=== PATIENT | female | born 2000 | race Caucasian/White ===

== ENCOUNTER 2019-05-31 16:40 | Emergency (ER) | payer OTHER, SELFPAY ==
[2019-05-31 16:50] VITALS: BP 134/63; PULSE 91; RESP 14; TEMP 36.7; O2SAT 98
--- NOTE | 2019-05-31 17:04 | ED.URI ---
HPI - URI/Sore Throat General Chief Complaint: Upper Respiratory Infection Stated Complaint: sore throat/headache/cough Time Seen by Provider: 05/31/19 17:04 Source: patient Mode of arrival: ambulatory Limitations: no limitations History of Present Illness HPI Narrative: Mercy Avina is a 18 yo female with no PMH who comes with sore throat that started 24 hours ago; states it hurts to swallow, has been exposed to strep Related Data Allergies Allergy/AdvReac Type Severity Reaction Status Date / Time morphine Allergy Severe Difficulty Verified 05/31/19 17:04 Breathing Penicillins Allergy Intermediate Hives Verified 05/31/19 17:04 Review of Systems Review of Systems: Narrative: CONSTITUTIONAL: Intermittent fever, chills, sweats. EYES: Denies visual changes, redness, discharge. ENT: Denies rhinorrhea, has congestion, has sore throat, no otalgia. CARDIOVASCULAR: Denies chest pain, palpitations, edema. RESPIRATORY: Denies dyspnea, wheezing, cough GASTROINTESTINAL: Denies abdominal pain, nausea, vomiting, diarrhea. GENITOURINARY: Denies dysuria, hematuria, abnormal discharge SKIN: Denies rash or itching. NEUROLOGIC: Denies numbness, or focal weakness. PSYCHIATRIC: Denies anxiety or depression. [facility] Family History Family History Other Diabetes mellitus Hypertension Social History Social History (Updated 05/31/19 @ 17:12 by Danii Santiago CNP) Smoking packs per day: 0.4 Smoking cigarettes per day: 8.0 Smoking status: Current every day smoker Alcohol intake: current Comments At time of signature, I agree with nursing past medical, surgical, social and family history. There is no relevant family history pertinent to the presenting complaint. Exam Narrative: Exam Narrative: GENERAL: This is a well-nourished, well-developed patient, in moderate distress. HEAD: normocephalic, atraumatic. EYES: Sclera clear/white. Vision is grossly intact. EARS: External ears normal, auditory canals clear and without drainage, TMs normal without perforation. Hearing grossly intact. NOSE: External nose normal with no obvious nasal discharge, nares without redness, no rhinorrhea. THROAT: Mucous membranes moist, posterior pharynx erythema, mid left pharynx tenderness NECK: Neck supple, tender with lymphadenopathy, CARDIOVASCULAR: Regular rate and rhythm without murmurs, gallops, or rubs. RESPIRATORY: Clear to auscultation. Breath sounds equal bilaterally. No wheezes, rales, or rhonchi. GASTROINTESTINAL: Abdomen soft, SKIN: warm, intact with no suspicious lesions or rash, good texture and turgor. NEURO: awake, alert, and oriented to person, place and time. There were no obvious focal neurologic abnormalities. Steady gait EXTREMITIES: Normal range of motion. No edema. N BACK: Nontender without deformity or crepitance. Course Course Emergency Course: Strep swab is positive; started on clindamycin Infection control discussed; work excuse given Vital Signs Vital signs: Vital Signs Temperature 98.1 F 05/31/19 16:50 Pulse Rate 91 05/31/19 16:50 Respiratory Rate 14 05/31/19 16:50 Blood Pressure 134/63 05/31/19 16:50 Pulse Oximetry 98 05/31/19 16:50 Temperature 98.1 F 05/31/19 16:50 Pulse Rate 91 05/31/19 16:50 Respiratory Rate 14 05/31/19 16:50 Blood Pressure 134/63 05/31/19 16:50 Pulse Oximetry 98 05/31/19 16:50 MDM - URI/Sore Throat Differential Diagnosis Differential diagnosis: Likely upper respiratory infection, sinusitis, viral infection and pharyngitis Lab Data Labs: Strep Screen Positive Group A Strep *(Reference Range: Negative)* Discharge Plan Discharge Clinical Impression: Pharyngitis Qualifiers: Pharyngitis/tonsillitis etiology: streptococcus Qualified Code(s): J02.0 - Streptococcal pharyngitis Patient Disposition: Home, Self-Care Condition: Stable Instructions:
== END 2019-05-31 17:25 | disposition home or self-care (01) ==
PROVIDERS: Emergency Provider Nurse Practitioner
DX: J02.0 Streptococcal pharyngitis (principal); F17.200 Nicotine dependence, unspecified, uncomplicated
CPT/HCPCS: 87880; 99213; G0463

== ENCOUNTER 2019-08-12 17:49 | Emergency (ER) | payer OTHER, SELFPAY ==
[2019-08-12 18:06] VITALS: BP 123/66; PULSE 81; RESP 20; TEMP 36.8; O2SAT 98
--- NOTE | 2019-08-12 18:38 | ED.FEMALEGU ---
HPI - Female Genitourinary General Chief complaint: Urogenital-Female Stated complaint: pain with urination Time Seen by Provider: 08/12/19 18:38 Source: patient Mode of arrival: ambulatory Limitations: no limitations History of Present Illness HPI Narrative: Mercy Avina is a 18 yo female who dysuria for 2-3 days states that she tried to increase water intake but has some suprpubic discomfort today and now burning.Wants referral to get checked for diabetes Related Data Allergies Allergy/AdvReac Type Severity Reaction Status Date / Time morphine Allergy Severe Difficulty Verified 08/12/19 18:33 Breathing Penicillins Allergy Intermediate Hives Verified 08/12/19 18:33 Review of Systems Review of Systems: Narrative: CONSTITUTIONAL: Denies fever, chills, sweats. EYES: Denies visual changes, redness, discharge. ENT: Denies rhinorrhea, congestion, sore throat, otalgia. CARDIOVASCULAR: Denies chest pain, palpitations, edema. RESPIRATORY: Denies dyspnea, wheezing, cough GASTROINTESTINAL: Denies abdominal pain, nausea, vomiting, diarrhea. GENITOURINARY: has dysuria, hematuria, no abnormal discharge SKIN: Denies rash or itching. NEUROLOGIC: Denies numbness, or focal weakness. PSYCHIATRIC: Denies anxiety or depression. [facility] Social History Social History (Updated 05/31/19 @ 17:12 by Danii Santiago CNP) Smoking packs per day: 0.4 Smoking cigarettes per day: 8.0 Smoking status: Current every day smoker Alcohol intake: current Gender identity (if verbalized by the patient): Female Comments At time of signature, I agree with nursing past medical, surgical, social and family history. There is no relevant family history pertinent to the presenting complaint. Exam Narrative: Exam Narrative: GENERAL: This is a well-nourished, well-developed patient, in mild distress. HEAD: normocephalic, atraumatic. EYES: Sclera clear/white. Vision is grossly intact. EARS: External ears normal, Hearing grossly intact. NOSE: External nose normal without nasal discharge, nares without redness, no rhinorrhea. THROAT: Mucous membranes moist, NECK: Neck supple, CARDIOVASCULAR: Regular rate and rhythm without murmurs, gallops, or rubs. RESPIRATORY: Clear to auscultation. Breath sounds equal bilaterally. No wheezes, rales, or rhonchi. GASTROINTESTINAL: Abdomen soft, non-tender, SKIN: warm, intact with no suspicious lesions or rash, good texture and turgor. NEURO: awake, alert, and oriented to person, place and time. There were no obvious focal neurologic abnormalities. Steady gait EXTREMITIES: Normal range of motion. BACK: Nontender without deformity Course Course Emergency Course: UA-positive for blood leukocyte esterase trace and protein started on macrobid Vital Signs Vital signs: Vital Signs Temperature 98.3 F 08/12/19 18:06 Pulse Rate 81 08/12/19 18:06 Respiratory Rate 20 08/12/19 18:06 Blood Pressure 123/66 08/12/19 18:06 Pulse Oximetry 98 08/12/19 18:06 Temperature 98.3 F 08/12/19 18:06 Pulse Rate 81 08/12/19 18:06 Respiratory Rate 20 08/12/19 18:06 Blood Pressure 123/66 08/12/19 18:06 Pulse Oximetry 98 08/12/19 18:06 MDM - Female Genitourinary Differential Diagnosis Differential diagnosis: Likely urinary tract infection, cystitis and other Lab Data Labs: Urine Glucose Negative Reference Range: Negative Urine Bilirubin Negative Reference Range: Negative Urine Ketone Negative Reference Range: Negative Urine Specific [facility] 1.030 Reference Range:1.001-1.035 Urine Blood 2+ Reference Range: Negative * * Urine pH 5.5 Reference Range: 5.0-9.0 Urine Protein 1+ Reference Range: Negative Urine Urobilinogen 0.2 Reference Range: 0.2-1.0 Uri
== END 2019-08-12 18:52 | disposition home or self-care (01) ==
PROVIDERS: Emergency Provider Nurse Practitioner
DX: N30.01 Acute cystitis with hematuria (principal); F17.210 Nicotine dependence, cigarettes, uncomplicated
CPT/HCPCS: 81003; 87086; 99213; G0463

== ENCOUNTER 2020-05-19 13:13 | Emergency (ER) | payer OTHER, SELFPAY ==
--- NOTE | 2020-05-19 13:17 | ED.UPPEXIN ---
HPI - Extremity Injury (Upper) General Chief Complaint: Extremity Injury, Upper Stated Complaint: right wrist pain Time Seen by Provider: 05/19/20 13:18 Source: patient and RN notes reviewed History of Present Illness HPI narrative: Patient is a 19-year-old female who presents the urgent care with complaints of right wrist pain. Patient denies of any injury or trauma. States is been hurting for approximately 1 month and is worse when she wakes up in the morning. Patient denies of any swelling, bruising or redness of the wrist. Denies of any recent strenuous activity or heavy lifting. Patient states she currently does not work and does not do anything causing repetitive motion to the right upper extremity. Patient has taken ibuprofen a few times for the pain but nothing consistent. No other acute complaints. No acute distress noted. Patient aware of the plan of care. Some parts of this dictation were generated by voice recognition software and may contain typographical and/or grammatical inaccuracies. Related Data Allergies Allergy/AdvReac Type Severity Reaction Status Date / Time morphine Allergy Severe Difficulty Verified 05/19/20 13:28 Breathing Penicillins Allergy Intermediate Hives Verified 05/19/20 13:28 Review of Systems Review of Systems: Narrative: CONSTITUTIONAL: Denies fever, chills, or sweats. EYES: Denies visual changes, redness, or discharge. ENT: Denies rhinorrhea, congestion, sore throat, or otalgia. CARDIOVASCULAR: Denies chest pain, palpitations, or edema. RESPIRATORY: Denies cough or dyspnea. GASTROINTESTINAL: Denies abdominal pain, nausea, vomiting, or diarrhea. GENITOURINARY: Denies dysuria or hematuria. SKIN: Denies rash or itching. MUSCULOSKELETAL: Reports of right wrist pain NEUROLOGIC: Denies headache, numbness, or weakness. All other systems reviewed are negative, except as documented in HPI. COUNT INCLUDES [facility] Family History Family History Other Diabetes mellitus Hypertension Social History Social History (Updated 05/31/19 @ 17:12 by Danii Santiago CNP) Smoking packs per day: 0.4 Smoking cigarettes per day: 8.0 Smoking status: Current every day smoker Alcohol intake: current Gender identity (if verbalized by the patient): Female Comments At the time of my signature, I reviewed and agree with the nursing past medical, surgical, social, and family history. There is no relevant family history pertinent to the patient complaint. Exam Narrative: Exam Narrative: GENERAL: This is a well-nourished, well-developed patient, in no apparent distress. HEAD: normocephalic, atraumatic. EYES: PERRL. Sclera clear/white. Vision is grossly intact. EARS: External ears normal NOSE: External nose normal with no obvious nasal discharge, nares without redness, no rhinorrhea. THROAT: Mucous membranes moist NECK: Neck supple SKIN: warm, intact with no suspicious lesions or rash, good texture and turgor. NEURO: awake, alert, and oriented to person, place and time. There were no obvious focal neurologic abnormalities. EXTREMITIES: No obvious deformity, erythema, edema or ecchymosis noted to right wrist. Range of motion within normal limits with mild to moderate pain. Positive strong right radial pulse with capillary refill less than 2 seconds. Tinel sign negative Course Vital Signs Vital signs: Vital Signs Temperature 98.0 F 05/19/20 13:18 Pulse Rate 97 05/19/20 13:18 Respiratory Rate 16 05/19/20 13:18 Blood Pressure 127/76 05/19/20 13:18 Pulse Oximetry 97 05/19/20 13:18 Temperature 98.0 F 05/19/20 13:18 Pulse Rate 97 05/19/20 13:18 Respiratory Rate 16 05/19/20 13:18 Blood Pressure 127/76 05/19/20 13:18 Pulse Oximetry 97 05/19/20 13:18 Reviewed MDM - Extremity Injury (Upper) MDM Narrative Medical decision making narrative: Explained to the patient that symptoms are likely related to tendinitis. Complete
[2020-05-19 13:18] VITALS: BP 127/76; PULSE 97; RESP 16; TEMP 36.7; O2SAT 97
== END 2020-05-19 13:35 | disposition home or self-care (01) ==
PROVIDERS: Emergency Provider Nurse Practitioner Family
DX: M77.8 Other enthesopathies, not elsewhere classified (principal); F17.210 Nicotine dependence, cigarettes, uncomplicated
CPT/HCPCS: 99213; G0463

== ENCOUNTER 2022-02-10 08:03 | Outpatient (CLI) | payer OTHER, SELFPAY ==
--- NOTE | ~2022-02-10 | US_ITS ---
US abdomen limited INDICATION: Hyperlipidemia PROCEDURE: Realtime right upper abdominal ultrasound. COMPARISON: No prior studies for comparison. FINDINGS: Examination limited. Patient body habitus. The pancreas is normal without focal mass or muniz creatic ductal dilation. Liver echotexture is diffusely increased, consistent with fatty infiltratio n. No focal hepatic masses. There is normal directional flow in the portal vein. The gallbladder is normal without stones, gallbladder wall thickening or pericholecystic fluid. Comm on bile duct measures 4 mm. No sonographic Moffett's sign. IMPRESSION: 1: Hepatic steatosis. Reviewed, dictated and finalized at location A. [facility] IMPRESSION: 1: Hepatic steatosis.
== END 2022-02-10 08:04 | disposition home or self-care (01) ==
PROVIDERS: Visit Provider Obstetrics & Gynecology
DX: E78.5 Hyperlipidemia, unspecified (principal); K76.0 Fatty (change of) liver, not elsewhere classified
CPT/HCPCS: 76705

== ENCOUNTER 2024-02-22 09:19 | Emergency (ER) | payer OTHER, SELFPAY ==
[2024-02-22 09:48] VITALS: BP 112/82; PULSE 83; RESP 15; TEMP 36.7; O2SAT 98
--- NOTE | 2024-02-22 10:55 | ED.URI ---
HPI - URI/Sore Throat General Chief Complaint: Upper Respiratory Infection Stated Complaint: Congestion/Cough/Sore Throat/Headache Time Seen by Provider: 02/22/24 10:55 Source: patient, RN notes reviewed and old records reviewed Mode of arrival: ambulatory Limitations: no limitations History of Present Illness HPI Narrative: 23 year old female who presents to [facility] care with complaints of 9 day history of sinus congestion with drainage,facial pressure, sore throat,headache,cough, and some right ear pain. Patient reports that she has been taking Mucinex, cough drops, nasal spray for her symptoms. Patient reports that cough noted for past past 4 days which is dry and hacking with no shortness of breath. Patient reports that she has not had any known fevers or chills. MD elicited complaint: cough, sore throat, nasal congestion and other (headache) Onset (ago): day(s) (9) Severity: moderate Able to tolerate fluids by mouth: Yes Treatments prior to arrival: other (Mucinex, cough drops, nasal spray, ) Related Data Allergies Allergy/AdvReac Type Severity Reaction Status Date / Time morphine Allergy Severe Difficulty Verified 02/22/24 09:48 Breathing Penicillins Allergy Intermediate Hives Verified 02/22/24 09:48 Review of Systems Review of Systems: CONSTITUTIONAL: Denies malaise, chills, sweats, or fever. EYES: Denies visual changes, redness, or discharge. ENT: Reports rhinorrhea, congestion, sinus pain, right otalgia and no sore throat. CARDIOVASCULAR: Denies chest pain, palpitations, or edema. RESPIRATORY: Reports cough.? Denies dyspnea. GASTROINTESTINAL: Denies abdominal pain, nausea, vomiting, diarrhea SKIN: Denies rash or itching. MUSCULOSKELETAL: Denies myalgia. NEUROLOGIC: Denies headache. All systems reviewed & are unremarkable except as noted in HPI and below PMFSH Past Medical History Medical History (Updated 02/24/24 @ 13:06 by Spring Clarke NP) Anxiety Surgical History Surgical History (Updated 02/24/24 @ 13:05 by Spring Clarke NP) History of facial surgery skull and facial reconstruction fro fracture nose and orbit and skull Family History Family History Other Diabetes mellitus Hypertension Social History Social History (Updated 02/24/24 @ 13:07 by Spring Clarke NP) Smoking packs per day: 0.4 Smoking cigarettes per day: 8.0 Smoking status: Former smoker Additional smoking assessment comments: nicotine free from vape 2 months reported 02/22/2024 Alcohol intake: current Gender identity (if verbalized by the patient): Female Comments At time of signature, agree with nursing past medical, surgical, social and family history. There is no relevant family history pertinent to the presenting complaint Exam Narrative: GENERAL: Well-appearing, well-nourished, and in no acute distress. HEAD: Normocephalic EYES: PERRLA, conjunctivae clear ENT: Nares clear, turbinates edematous and erythematous, clear discharge. Mucous membranes moist. TM pearly gutierrez with dull light reflex bilaterally; no tragal tenderness. Oropharynx erythematous without lesions. Tonsils not enlarged and without exudate, no drooling, no hoarseness, no trismus, uvula midline.post nasal drainage. NECK: Supple. No lymphadenopathy CHEST: Clear to auscultation, breath sounds equal. No wheezing, rhonchi, rales, or stridor. No respiratory distress, speaks in full sentences.dry cough,SAO2 98% on room air HEART: Regular rate and rhythm. No murmur heard. SKIN: Warm, dry, no rash. NEURO: Alert and oriented x3. PSYCH: Normal mood and affect Course Course Emergency Course: Patient is aware of diagnosis, understands and agrees to treatment plan.? Anticipatory guidance given.? Patient agrees to follow-up as directed and is aware of reasons to seek care at the emergency department. Portions of this record may have been created with voice recognition software Level of Care: Express Care Visit Vital Signs Vital signs: Vital Signs Temperature 36.7 C 02/22/24 09:48 Pulse Rate 83 02/22/24 09:48 Respiratory Rate 15 02/22/24 09:48 Blood Pressure 112/82 02/22/24 09:48 Pulse Oximetry 98 02/22/24 09:48 Oxygen Delivery Room Air 02/22/24 09:48 Temperature 36.7 C 02/22/24 09:48 Pulse Rate 83 02/22/24 09:48 Respiratory Rate 15 02/22/24 09:48 Blood Pressure 112/82 02/22/24 09:48 Pulse Oximetry 98 02/22/24 09:48 Oxygen Delivery Room Air 02/22/24 09:48 Reviewed MDM - URI/Sore Throat MDM Narrative Medical decision making narrative: Differential diagnosis considered: Johnston virus, strep pharyngitis, allergic rhinitis, upper respiratory tract infection, sinusitis, rhinosinusitis, nasopharyngitis. viral pharyngitis, otitis media, otitis externa, pneumonia, bronchitis, viral cough syndrome, viral syndrome, and influenza.? Exam findings show no acute concerns or changes; patient is non-toxic appearing and is in no distress.? Patient is appropriate for outpatient treatment and follow-up. Differential Diagnosis Differential diagnosis: Likely upper respiratory infection, sinusitis, viral infection and other (cough) Medical Records Attestation: I reviewed the patient's medical records. Lab Data Attestation: I reviewed the patient's lab results. Lab results narrative: COVID antigen negative, Influenza A negative, Influenza B negative Labs: Lab Results 02/22/24 Range/Units 10:58 POC Influenza A Ag Negative (Negative) POC Influenza B Ag Negative (Negative) POC SARS CoV-2 Ag Negative (Negative) Critical Care Time Critical Care Time Critical Care Time: No Discharge Plan Discharge Clinical Impression: Sinusitis Qualifiers: Sinusitis location: pansinusitis Chronicity: acute Recurrence: non-recurrent Qualified Code(s): J01.40 - Acute pansinusitis, unspecified Patient Disposition: Home, Self-Care Condition: Stable Instructions: Antibiotic Form, Sinusitis (ED) Additional Instructions: Increase fluids especially juices and water [id number] cough and cold medicine of your choice for your symptoms Zyrtec,Claritin or Ofelia daily include plain Sudafed in a.m. S decongestant Steroids as directed--take with food heat to the face 20-30 minutes 4-6 times a day for pain Salt water gargles, throat lozenges or throat sprays as desired Antibiotic as directed--finished the medication If your symptoms persist, change or worsen significantly before you can contact your personal physician then please, without delay, go to the emergency department for further evaluation. Follow-up with PCP in 7-10 days or sooner if needed Patient Language: Setswana Prescriptions: New azithromycin 500 mg tablet 500 mg PO DAILY 5 Days Qty: 5 0RF methylprednisolone [Medrol (Jamar)] 4 mg tablets,dose pack See Rx Instructions .ROUTE .COMPLEX Qty: 21 0RF Rx Instructions: orally per package directions No Action methylprednisolone [Medrol (Jamar)] 4 mg tablets,dose pack See Rx Instructions .ROUTE .COMPLEX Qty: 21 0RF Rx Instructions: orally per package directions ibuprofen 800 mg tablet 800 mg PO TID PRN (Reason: pain) Qty: 20 0RF Follow-up/Referrals: Toña,MD Kyle [Primary Care Provider] - Time of Disposition: 11:26 Quality Pedro Coma Scale Eyes: Open Verbal: Oriented and Alert Motor: Follows Commands Pedro Coma Total Score: 15
[2024-02-22 11:00] LABS: EDCOVIDSCREEN Negative (Negative); EDINFLUASCREEN Negative (Negative); EDINFLUBSCREEN Negative (Negative)
== END 2024-02-22 11:30 | disposition home or self-care (01) ==
PROVIDERS: Emergency Provider Registered Nurse; PCP Internal Medicine
DX: J01.40 Acute pansinusitis, unspecified (principal); Z20.822 Contact with and (suspected) exposure to COVID-19; Z87.891 Personal history of nicotine dependence
CPT/HCPCS: 87426; 87804; 99213; G0463

== ENCOUNTER 2024-04-08 12:49 | Outpatient (RCR) | payer OTHER, SELFPAY | END 2024-07-03 23:59 | disposition home or self-care (01) | LOC: ANHLAB 12:49 | PROVIDERS: Visit Provider Obstetrics & Gynecology | DX: O36.0130 Maternal care for anti-D [Rh] antibodies, third trimester, not applicable or unspecified (principal); Z36.89 Encounter for other specified antenatal screening | CPT/HCPCS: 36415; 84702; 85461; 86850; 86900; 86901 ==

== ENCOUNTER 2024-06-14 12:19 | Outpatient (CLI) | payer OTHER, MEDICAID, SELFPAY ==
--- OUTSIDE RECORDS SUMMARY | 2024-06-14 12:27 | XMS_ITS | Continuity of Care Document ---
Author Organization [facility] [place] Address [address] [place] [address] [place] [address] Care Team Providers Care Fund Controller Name Role Phone ROSA LEW Primary Care Provider Assessment No assessment recorded. Plan of Treatment Reminders Order Date Submit Date Provider Last Modified By Organization Details Last Modified Time Details Appointments OB PROBLEM 2024 01:45P Sommer ALEXIS MD Not available Not available Not available Lab None recorded. Referral None recorded. Procedures None recorded. Surgeries None recorded. Imaging US, obstetric , 2nd or 3rd trimester 2024 025 [email or web address] [place], [address], [place], [address], 06/13/2024 19:16:44 Medication Orders None recorded. Patient TargetsNo targets recorded. Patient InstructionsNo instructions recorded. Reason for Referral None Reported. Results Created Date Observation Date Name Description Value Unit Range Abnormal Flag Note LastModifiedBy Organization Detail LastModifiedTime 03/21/1903/21/2024 US, obste tric, 1st trime ster No observ ation record ed. [email or web address] [address], [place], [address], 03/21/2024 21:29:57 04/04/19 25 04/04/2024 US, obste tric, 1st trime ster No observ ation record ed. [email or web address] [place] [address], [place], [address], 04/04/2024 10:17:32 04/04/19 25 04/04/2024 US, obste tric, 1st trime ster No observ ation record ed. [email or web address] [address], [place], [address], 04/04/2024 23:05:27 04/18/19 25 04/18/2024 US, obste tric, nucha l trans lucen cy No observ ation record ed. [email or web address] [place] [address], [place], [address], 04/18/2024 18:38:07 04/18/19 25 04/18/2024 US, obste tric, nucha l trans lucen cy No observ ation record ed. [email or web address] [address], [place], [address], 04/18/2024 15:51:35 04/29/19 25 04/29/2024 US, obste tric, limit ed No observ ation record ed. [email or web address] [place] [address], [place], [address], 04/29/2024 18:29:00 04/29/19 25 04/29/2024 US, obste tric, limit ed No observ ation record ed. [email or web address] [address], [place], [address], 04/30/2024 15:00:43 06/14/19 25 06/13/2024 US, obste tric, 2nd or 3rd trime ster No observ ation record ed. [email or web address] [place] [address], [place], [address], 06/13/2024 12:14:41 06/14/19 25 06/13/2024 US, obste tric, 2nd or 3rd trime ster No observ ation record ed. [email or web address] [address], [place], [address], 06/13/2024 21:49:23 Result Notes None recorded. Problems Name Problem SNOMED Code Status Onset Date Resolution Date Notes Provider Name and Address Organization Details Recorded Time 17595065 Active 20[facility] 13:01:03 Steatosis of liver 358106861 Active elevated liver enz. Chano Alexis MD [address], [place], [address], [facility] 5 14:36:04 Hypothyro idism 56935561 Active [facility] 88 mcgm levothyro raymond Chano Alexis MD [address], [place], [address], [facility] 5 15:33:41 Obesity 139611482 Active BMI 50 testing at 34wks Rosi Travis [facility] 5 13:51:57 Polycysti c ovary syndrome 173848983 Active Early GDM screen Chano Alexis MD [address], [place], [address], [facility] 5 14:48:04 Cardiac arrhythmi a 517261349 Active holter monintor and cardiolog y Cardiolog y referral faxed Dr Michaels office 06/13 72 hr Holter monitor order 06/13 [facility] 5 13:51:49 Problem Notes None recorded. Procedures Surgical History Date Name Laterality Status Provider Name and Address Organization Details Recorded Time 4 Date of Last Pap Smear completed Lydia Lafleur [facility] 12/30/2023 12:13:46 7 internal fixation of bone of face with plating system completed Lydia Lafleur [facility] 07/21/2021 15:30:03 Imaging Results Imaging Date Name Status LastModified by Organiz ation Details LastModified Time 06/13/2024 US, obstetric, 2nd or 3rd trimester completed [email or web address] [place] [address], [place], [address], 06/13/2024 12:14:41 Procedure Notes None recorded. Medical Equipment None Reported. Allergies Allergen ID Allergen Name Allergen Category Reaction Reaction Severity Criticality Documentation Date Start Date Code Code System Note Provider Name and Address Organization Details Recorded Time 72070 Product containin g penicilli n (product) medicatio n hives severe Not available 09/21/2020 68528 8001 SNOMED [facility] 15:22:27 07059 morpholin e salicylat e Not available facial swelling severe Not available 09/21/2020 52214 8 RxNorm [facility] 15:33:32 45093 morphine medicatio n Not available Not available Not available 09/21/2020 7052 RxNorm [facility] 15:33:29 Medications Name Sig Start Date Stop Date Status Note LastModified by Organization Details LastModified Time metformin 500 mg tablet TAKE 1 TABLET BY MOUTH IN THE MORNING AND IN THE EVENING 12/29 completed Not Available Not Available Not Available azithromyci n 250 mg tablet 01/17 completed Not Available Not Available Not Available levothyroxi ne 25 mcg tablet TAKE 1 TABLET BY MOUTH DAILY 07/21 completed Not Available Not Available Not Available levothyroxi ne 75 mcg tablet TAKE 1 TABLET BY MOUTH DAILY 03/21 completed Not Available Not Available Not Available levothyroxi ne 100 mcg tablet TAKE 1 TABLET BY MOUTH DAILY 07/21 completed Not Available Not Available Not Available levothyroxi ne 88 mcg tablet TAKE 1 TABLET BY MOUTH DAILY active Not Available Not Available No t Available levothyroxi ne 50 mcg tablet Take 1 tablet every day by oral route. 01/17 completed Not Available Not Available Not Available ursodiol 300 mg capsule Take 1 capsule twice a day by oral route. 2024 active Not Available Not Available Not Avai lable ergocalcife rol (vitamin D2) 1,250 mcg (50,000 unit) capsule TAKE 1 CAPSULE BY MOUTH EVERY WEEK 12/29 completed Not Available Not Available Not Available methylpredn isolone 4 mg tablets in a dose pack FOLLOW PACKAGE DIRECTION S 03/21 completed Not Available Not Available Not Available metformin ER 500 mg tablet,exte nded release 24 hr TAKE 1 TABLET BY MOUTH TWICE DAILY 12/29 completed Not Available Not Available Not Available nicotine 7 mg/24 hr daily transdermal patch APPLY 1 PATCH TOPICALLY TO THE SKIN EVERY DAY DIRECTED 12/29 completed Not Available Not Available Not Available azithromyci n 500 mg tablet TAKE 1 TABLET BY MOUTH DAILY FOR 5 DAYS 03/21 completed Not Available Not Available Not Available 1.5/30 (28) 1.5 mg-30 mcg (21)/75 mg (7) tablet TAKE 1 TABLET BY MOUTH EVERY DAY 12/29 completed Not Available Not Available Not Available active Not Available Not Avai lable Not Available Victoza 2-Jamar 0.6 mg/0.1 mL (18 mg/3 mL) subcutaneou s pen injector ADMINISTE R 0.6 MG UNDER THE SKIN EVERY DAY DIRECTED 12/29 completed Not Available Not Available Not Available Vitals Date Recorded Body height Body mass index (BMI) Body weight Systolic blood pressure Diastolic blood pressure Provider Name and Address Organization Details Last Updated DateTime 06/13/2024 153.67 cm 51.1 kg/m2 458353.5 7 g 136 mm[Hg] 83 mm[Hg] Priscilla Nickerson [facility] 12:51:16 Social History Question Answer Notes LastModified by Organizat ion Details LastModified Time Tobacco Smoking Status Former Smoker Edmund carnes [facility] 07/21/2021 15:02:14 Do You Have An Advance Directive? No Information not available 09/21/2020 What Is Your Level Of Alcohol Consumption? None Information not available 09/21/2020 Are You Blind Or Do You Have Difficulty Seeing? No Information not available 09/21/2020 What Is Your Level Of Caffeine Consumption? Occasional Information not available 09/21/2020 How Much Tobacco Do You Chew? None Information not available 09/21/2020 In The 14 Days Before Symptom Onset, Have You Had Close Contact With A Laboratory-confir med COVID-19 While That Case Was Ill? No Information not available 09/21/2020 In The 14 Days Before Symptom Onset, Have You Had Close Contact With A Person Who Is Under Investigation For COVID-19 While That Person Was Ill? No Information not available 09/21/2020 Have You Been To An Area Known To Be High Risk For COVID-19? No Information not available 09/21/2020 Are You Deaf Or Do You Have Serious Difficulty Hearing? No Information not available 09/21/2020 What Type Of Diet Are You Following? REGULAR Information not available 09/21/2020 Do You Or Have You Ever Used E-cigarettes Or Vape? Current User Of Electronic Cigarettes [email or web address] Information not available 07/21/2021 What Is The Highest Grade Or Level Of School You Have Completed Or The Highest Degree You Have Received? [id number] Information not available 09/21/2020 Are There Any Guns Present In Your Home? No Information not available 09/21/2020 Do You Use Protection During Sex? No Information not available 09/21/2020 Do You Use Your Seat Belt Or Car Seat Routinely? Yes Information not available 09/21/2020 Do You Have Smoke And Carbon Monoxide Detectors In Your Home? Yes Information not available 09/21/2020 How Much Tobacco Do You Smoke? No Information not available 09/21/2020 Do You Feel Stressed (tense, Restless, Nervous, Or Anxious, Or Unable To Sleep At Night)? [id number] Information not available 09/21/2020 Do You Use Any Illicit Or Recreational Drugs? No Information not available 09/21/2020 Do You Use Sunscreen Routinely? No Information not available 09/21/2020 Have You Used IV Drugs? No Information not available 09/21/2020 Do You Or Have You Ever Used Any Other Forms Of Tobacco Or Nicotine? Yes [email or web address] Information not available 07/21/2021 Sex: Unknown Functional Status Question Answer Note LastModified by Organizat ion Details LastModified Time Do you have difficulty walking or climbing stairs? No [email or web address] Information not available 07/21/2021 Are you able to walk? YESWOREST Information not available 09/21/2020 Are you able to care for yourself? Yes [email or web address] Information not available 07/21/2021 Do you have difficulty dressing or bathing? No [email or web address] Information not available 07/21/2021 What is your exercise level? None Information not available 09/21/2020 Mental Status None recorded. Family History Relationship Description Onset Age of this Age Resolved Age Notes LastModified by Organization Details LastModified Time Maternal Grandfather Malignant tumor of colon Not available 2020 15:39:09 Maternal Uncle Malignant tumor of colon Not available 2020 15:39:09 Maternal Aunt Malignant tumor of lung Not available 2020 15:39:40 Medical History Condition Response Allergies (Food, seasonal, environmental ) Y Other N Breast Cancer N Drug/Latex Allergies/Reactions N Blood Transfusion N Dermatologic Disorders N Lung Disease N Defects or Inherited Disease N Breast Problem N Gestational Diabetes N Hematologic disorders N Anesthesia Complications N History of STI Y Deep Vein Thrombosis N Polycystic ovary syndrome Y Anxiety Disorder N Autoimmune disease N Arthritis N Infertility Y Polyps N Acid Reflux (GERD) N History of abnormal pap N Cancer N Stroke N Varicosities N Neurologic/Epilepsy Y Endometriosis N High Cholesterol N Headaches N Fibromyalgia N Kidney Disease N Heart Problems N Kidney or Bladder Problems N Thyroid Problems Y GI Problems N Eating Disorder N Anemia N Art (IVF or FET) N Psychiatric Illness N Ovarian Cancer N Diabetes N Pulmonary (TB, Asthma) N Hepatitis/Liver Disease N No Past Medical History N Eczema N Urinary Tract Infection N Abuse/Domestic Violence N Asthma N Trauma/Violence N Depression/ depression N Heart Disease N Pre-Eclampsia N Hypertension N Osteoporosis N Thrombophilias N Gynecological History Statement/Question Response Date of Last Mammogram Date of LMP 01/22/2024 On BCP's at Conception? N N Was last menstrual period normal N STIs/STDs Y HPV Vaccine N Duration of Flow (days) 2 Current Control Method Are cycles usually normal N Date of Last Colonoscopy Sexually Active? Y Menses Monthly N Date of DEXA bone scan Age of first menstrual cycle 6 Date of Last Pap Smear 12/30/2023 Sexual Problems? N LMP Definite N Obstetrics History GPAL:G 2 P 0 0 1 0 Type Value Spontaneous 1 Living 0 Total 2 Past Encounters Encounter ID Performer Location Encounter Start Date Encounter Closed Date Diagnosis/Indication Diagnosis SNOMED-CT Code Diagnosis ICD10 Code Diagnosis Note [id number] Chano Alexis MD [place] [address] [address] 05/16/2024 11:38:22 05/16/2024 12:51:46 Routine care 663368183 Z34.90 [id number] [facility] [address],[place] [address] 06/13/2024 10:39:38 06/13/2024 12:11:02 screening for malformation 270194035 Z36.3 Z3A.20 [id number] Chano Alexis MD [place] [address],[place] [address] 06/13/2024 10:40:00 06/13/2024 14:35:54 Itching of skin 685804046 L29.9 Routine an tenatal care 454586736 Z34.90 Palpitations 28472264 R0 0.2 Health Concerns Section Related Observation LastModified by Organization Detai ls LastModified Time None Recorded Concern Status LastModified by Organization Details LastModified Time None Recorded Payers Encounter Date Sequence Insurance Name Policy Number Policy Stoner Covered Member ID Stoner Member ID Guarantor Name 06/13/2024 1 [employer] [id number] Allan Avina [id number] [facility] 06/13/2024 [facility] [id number] [facility] Episode Ob Episode Information Episode Created Date Number of Fetuses Patient Bloodtype Patient rh Status Prepregnancy Weight lbs Domestic Partner Domestic Partner Phone Father Name Ceramic Maker Demonstrator Status 03/14/19 25 1 A Positive Allan OPEN Fetus Data First Name Last Name Admitted to NICU Weight (g) Sex Living Outcome Pediatric Complications Fetus ID Race Codes Race Delivery Type [id number] Problems Problem Notes Hep C antibody screen reacti ve but HCV quant not detected. Pt denies history. Pt requests repeat with 28w labs for peace of mind. JORJE, RN Problem Name Start Date End Date Resolution Snomed Code Not e Obesity 166013708 BMI 50ante haylie testing at 34wks Cardiac arrhythmia 383835412 h [facility]ter monintor and cardiologyCardiology referral faxed Dr Michaels office hr Holter monitor order 06/13 Hypothyroidism 67084163 Lyudmila teja's88 mcgm levothyroxin Steatosis of liver 398821280 e levated liver enz. Polycystic ovary syndrome 103836578 Early GDM scree n Avila Calculation Initial Avila Date Initial Exam Date Initial Exam Provider Initial Ultrasound Date Last Menstrual Period Date Ultra Sound Weeks Gestation 03/14/2024 03/21/2024 01/22/2024 8 Eighteen To Twenty Week Avila Update Ultra Sound Date Fundal Height At Umbil Quickening Date Ultra Sound Latest Weeks Gestation Final Avila Confirmed By Final Avila Confirmed Date Final Avila Date Ultra Sound Latest Days Gestation 0 [email or web address] 04/18/2024 10/29/19 25 0 Pre- Flowsheet Flowsheet Date 03/21/2024 Caldwell Score Blood Edema Fundus Height Fundus Units Glucose Ketones Leukocytes Nitrite Labor Signs Protein Cervic Dilation Cervic Effacement Cervic Station Type Weight in lbs Pre/Post Dialysis Refused BP Diastolic BP Location Tested BP Systolic BP Type Fetus Heart Rate Present Fetus Movement Comments Flowsheet Date 03/21/2024 Caldwell Score Blood Edema Fundus Height Fundus Units Glucose Ketones Leukocytes Nitrite Labor Signs Protein Cervic Dilation Cervic Effacement Cervic Station Type Weight in lbs Pre/Post Dialysis Refused 260.012923910597 BP Diastolic BP Location Tested BP Systolic BP Type 83 L arm 125 sitting Fetus Heart Rate Present A 145 Fetus Movement A No Comments this patient is a 23-year-ol d multiparous female at 12 weeks' gestation who presents for initial care. She has a history of term vaginal births. Her medical, surgical, obstetric history is unremarkable. She is vaccinated. She was given precautions recommendations for . We talked about vaccines in . Talked about care in detail. She is having genetic testing. She had a normal 12 week ultrasound. To begin routine care. Flowsheet Date 04/04/2024 Caldwell Score Blood Edema Fundus Height Fundus Units Glucose Ketones Leukocytes Nitrite Labor Signs Protein Cervic Dilation Cervic Effacement Cervic Station Type Weight in lbs Pre/Post Dialysis Refused BP Diastolic BP Location Tested BP Systolic BP Type Fetus Heart Rate Present Fetus Movement Comments Flowsheet Date 04/18/2024 Caldwell Score Blood Edema Fundus Height Fundus Units Glucose Ketones Leukocytes Nitrite Labor Signs Protein Cervic Dilation Cervic Effacement Cervic Station Type Weight in lbs Pre/Post Dialysis Refused BP Diastolic BP Location Tested BP Systolic BP Type Fetus Heart Rate Present Fetus Movement Comments Flowsheet Date 04/18/2024 Caldwell Score Blood Edema Fundus Height Fundus Units Glucose Ketones Leukocytes Nitrite Labor Signs Protein Cervic Dilation Cervic Effacement Cervic Station Type Weight in lbs Pre/Post Dialysis Refused 265.901192255968 BP Diastolic BP Location Tested BP Systolic BP Type 94 L arm 138 sitting Fetus Heart Rate Present Fetus Movement A No Comments this patient is a 23year-old primiparous female at 12 weeks' gestation who presents for initial care.s. Her medical, surgical, obstetric history is unremarkable. She is vaccinated. She was given precautions recommendations for . We talked about vaccines in . Talked about care in detail. She is having genetic testing. She had a normal 12 week ultrasound. To begin routine care. Flowsheet Date 04/29/2024 Caldwell Score Blood Edema Fundus Height Fundus Units Glucose Ketones Leukocytes Nitrite Labor Signs Protein Cervic Dilation Cervic Effacement Cervic Station Type Weight in lbs Pre/Post Dialysis Refused BP Diastolic BP Location Tested BP Systolic BP Type Fetus Heart Rate Present Fetus Movement Comments Flowsheet Date 05/16/2024 Caldwell Score Blood Edema Fundus Height Fundus Units Glucose Ketones Leukocytes Nitrite Labor Signs Protein Cervic Dilation Cervic Effacement Cervic Station Type Weight in lbs Pre/Post Dialysis Refused Weight 264.272654899743 BP Diastolic BP Location Tested BP Systolic BP Type 83 125 sitting Fetus Heart Rate Present A 145 Present Fetus Movement A No Comments no complaints, no problems, routine care, no contractions, no vaginal bleeding, no loss of fluid, no cramping Flowsheet Date 06/13/2024 Caldwell Score Blood Edema Fundus Height Fundus Units Glucose Ketones Leukocytes Nitrite Labor Signs Protein Cervic Dilation Cervic Effacement Cervic Station Type Weight in lbs Pre/Post Dialysis Refused BP Diastolic BP Location Tested BP Systolic BP Type Fetus Heart Rate Present Fetus Movement Comments Flowsheet Date 06/13/2024 Caldwell Score Blood Edema Fundus Height Fundus Units Glucose Ketones Leukocytes Nitrite Labor Signs Protein Cervic Dilation Cervic Effacement Cervic Station Type Weight in lbs Pre/Post Dialysis Refused Weight 266.171759962089 BP Diastolic BP Location Tested BP Systolic BP Type 83 L arm 136 sitting Fetus Heart Rate Present Fetus Movement A Yes Comments patient reports symptomatic palpitations, to obtain Cardiology consult and Holter monitor prior to. Pruritus of palms and plantar surfaces of the feet. To obtain bile acids and start ursodiol Menstrual History Last Menstrual Date Menses Monthly On Bcp Conception Prior Menses Frequency Hcg Plus Date Menarche Onset Age 1101/22/2024 false Delivery Information Delivery Date Delivery Type Labor Anesthesia Weeks Gestation Incision Type Labor Labor Length Hrs Delivered By Post Complications Tubal Sterilization Discharge Date Comments Discharge Information Feeding Method Contraceptive Method Maternal HG B and HCT Levels
--- OUTSIDE RECORDS SUMMARY | 2024-06-14 12:28 | XMS_ITS | Clinical Summary ---
Author Organization 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) Discharge Disposition: Discharged to home or Selfcare 03/27/2024 Travel from Last 3 Months Immunizations Immunization Administration Dates Next Due DTAP VACCINE 03/24/1999,01/25/1999,1998 DTAP VACCINE, UNSPECIFIED FORMULATION 09/09/2003 ,01/04/2000 Hepatitis A Vaccine,unspecif ied Formulation 04/14/2006,02/14/2005 Hepatitis B Vaccine 03/24/1999,1998 Hepatitis B Vaccine, Pediatric/adolescent 03/24/1999,1998,1998 Hepatitis B Vaccine,unspecif ied Formulation 1998 Hib Vaccine,unspecified Formulation 12/12,03/24/1999,01/25/1999,11/12 Hpv, Unspecified Formulation 11/02/2012,10/25/19 12 Human Papillomavirus Vaccine (HPV), quadrivalent 11/02/2012 Inactivated Polio Vaccine 09/09/2003,02/2000,01/25/1999,11/12 Influenza Vaccine 07/11/2013 MMR Vaccine 09/09/2003,10/03/2000 Meningococcal MCV4, Unspecif ied Formulation 10/03/2016,10/27/2009 Meningococcal Vaccine 10/03/2016 Pneumococcal Vaccine Peds - 7 Valent 10/03/2000, 06/23/2000 TDAP Vaccine 09/27/2022,01/02/2019,12/03/2008 Social History Tobacco Use Types Packs/Day Years Used Date Smoking Tobacco: Former Cigarettes Smokeless Tobacco: Never Tobacco Cessation:Counseling Given: Not Answered Alcohol Use Standard Drinks/Week Comments Yes 0 (1 standard drink = 0.6 oz pur e alcohol) Comments Yes Sex and Gender Information Value Date Recorded Sex Assigned at Female 11/03/2022 10:48 PM CDT Legal Sex Female 11:35 PM CDT Gender Identity Female 11/03/2022 10:48 PM CDT Sexual Orientation Not on file Last Filed Vital Signs Vital Sign Reading Time Taken Comments Blood Pressure 124/74 03/28/2024 9:17 AM CLEAN ROOM OPERATOR Pulse 126 03/28/2024 9:17 AM CLEAN ROOM OPERATOR Temperature 36.3 C (97.3 F) 03/28/2024 9:17 AM CLEAN ROOM OPERATOR Respiratory Rate 22 03/28/2024 9:17 AM CLEAN ROOM OPERATOR Oxygen Saturation 96% 03/28/2024 9:17 AM CLEAN ROOM OPERATOR Inhaled Oxygen Concentration - - Weight 118.4 kg (261 lb) 03/28/2024 9:17 AM CLEAN ROOM OPERATOR Height 152.4 cm (5') 03/08/2024 2:12 AM CLEAN ROOM OPERATOR Body Mass Index 50.97 03/08/2024 2:12 AM CLEAN ROOM OPERATOR Plan of Treatment Upcoming Encounters Date Type Department Care Team (Late st Contact Info) Description 06/26/2024 9:45 AM CDT Office Visit [facility] - Endocrinology [facility] [address] [place] [address] Karol Holder MD [address] [address] Health Maintenance Due Date Last Done Comments Hepatitis C Virus (HCV) Screening 1998 Pap Smear 09/17/2019 Influenza Immunization (#1) 2023 07/11/2013 SARS-COV-2 Immunization ( - 2023- season) 2023 DTaP/Tdap/Td Immunization (9 - Td or Tdap) 09/27/2032 09/27/2022, 01/02/2019, 12/03/2008, Additional history exists Respiratory Syncytial Virus (RSV) Immunization (Adult) (1 - 1-dose 75+ series) 2073 Hepatitis B Immunization Completed 000, 03/24/1999, 1998, Additional history exists Pneumococcal Immunization Combined Aged Out 10/03/2000, 06/23/2000 No longer eligibl e based on patient's age to complete this topic Human Papillomavirus (HPV) Immunization Completed 11/02/2012, 11/02/2012, 10/25/2011 Meningococcal Immunization (ACWY) Completed 10/03/2016, 10/03/2016, 10/27/2009 Rotavirus Immunization Aged Out No lo nger eligible based on patient's age to complete this topic Procedures Procedure Name Priority Date/Time Associated Diagnosis Comments THYROXINE (T4) FREE Routine 03/27/2024 1 :00 PM CLEAN ROOM OPERATOR Hypothyroidism due to Piper's thyroiditis THYROID STIMULATING HORMONE (TSH) Routine 03/27/2024 1:00 PM CLEAN ROOM OPERATOR Hypothyroidism due to Piper's thyroiditis from Last 3 Months Results * THYROXINE (T4) FREE (03/27/2024 1:00 PM CLEAN ROOM OPERATOR) T4 FREE 0.8 0.7 - 1.9 ng/dL 03/27/2024 2:50 PM CLEAN ROOM OPERATOR [facility] Blood Venipuncture / Unknown 03/27/2024 1:00 PM CLEAN ROOM OPERATOR 03/27/2024 1:55 PM CLEAN ROOM OPERATOR us Karol Holder MD CHEMISTRY ORDERABLES Final Resul t [facility] [address] [place] [address] * THYROID STIMULATING HORMONE (TSH) (03/27/2024 1:00 PM CLEAN ROOM OPERATOR) TSH 3.827 0.300 - 5.000 mIU/L 03/27/2024 2:50 PM CLEAN ROOM OPERATOR [facility] Blood Venipuncture / Unknown 03/27/2024 1:00 PM CLEAN ROOM OPERATOR 03/27/2024 1:55 PM CLEAN ROOM OPERATOR us Karol Holder MD CHEMISTRY ORDERABLES Final Resul t Performing Organization Address City/[facility] Co de Phone Number [facility] [address] [place] [address] from Last 3 Months Insurance MEDICAID [place] MEDICAID [facility] [employer] [facility] MEDICAID [place] [facility] GENERIC MEDICAID [facility] [employer] [employer] Care Teams Structural Steel Erector Relationship Specialty Start Date End Date Maxim Ding MD [address] [place] [address] [address] [place] [address] PCP - General Internal Medicine 11/03/22 Karol Holder MD [address] [facility] [address] [place] [address] Consulting Physician Endocrinology 08/03/21
--- OUTSIDE RECORDS SUMMARY | 2024-06-14 12:28 | XMS_ITS | Data Portability ---
[facility] [address] [place] [address] Care Team Providers Care Collar Starcher Name Role Phone MAYRA LEWJOSÉ MIGUELRISHABH Primary Care Provider Assessment No assessment recorded. Plan of Treatment Reminders Order Date Submit Date Provider Last Modified By Organization Details Last Modified Time Details Appointments ANY 30 2024 01:00P M VALE HAND Not available Not available Not available Lab rapid SARS CoV 2 Ag, QL IA, respira tory specime n 2022 023 nsuthan In-Office Order, Internal Use Only DO Not Attach Compendium DO Not Attach Compendium, Do Not Delete/merge, [id number] 10/07/2022 16:20:38 CMP, serum or plasma 2022 023 [place] [facility], [address] [place] [address], [address], [place], [address], 07/25/2022 20:08:50 CBC w/ auto diff 2022 023 [facility], [address] [facility], [address], [place], [address], 07/25/2022 20:08:51 lipid panel, serum 2022 023 [place] [facility], [facility], [address], [place], [address], 07/25/2022 20:08:50 HbA1c (hemogl obin A1c), blood 2022 023 [facility], [address], [address], [place], [address], 07/26/2022 03:08:20 Referral nutriti onist/d ietitia n referra l [address], [address] [facility] , [place], [address], 07/19/2022 13:54:43 bariatr ic surgery referra l 2022 023 [facility] Clifford Gardiner MD, 4 [facility] , [address], [place], [address], 07/18/2022 12:41:19 Procedures None recorde d. Surgeries None recorde d. Imaging None recorde d. Medication Orders metform in ER 500 mg tablet, extende d release 24 hr 2023 024 [place] [id number], [address], [place], [place], [id number], 01/12/2024 09:43:16 Ozempic 0.25 mg or 0.5 mg (2 mg/1.5 mL) subcuta neous pen injecto r 2022 023 [email or web address] Not available 08/01/2022 12:04:39 Patient TargetsNo targets recorded. Patient Instructions Encounter Date Encounter Id Patient Instructions Last Modified By Organization Details Last Modified Time 04/18/2022 [id number] A healthy lifestyle: care instructions nsuthan Not available 04/18/2022 10:48:03 diet and exercis e for metabolic syndrome: care instructions nsuthan Not available 04/18/2022 10:48:03 3 month with labs nsuthan Not availabl e 04/18/2022 10:48:20 09/27/2022 [id number] A healthy lifestyle: care instructions nsuthan Not available 09/27/2022 10:05:41 tdap/f/u in 4month nsuthan Not available 09/27/2022 10:05:13 10/07/2022 [id number] keep f/u nsuthan Not available 10/07 16:20:46 04/27/2023 [id number] A healthy lifestyle: care instructions nsuthan Not available 04/27/2023 10:08:53 f/u in 4 month nsuthan Not available 0 04/27/2023 10:21:53 01/12/2024 [id number] f/u in 6month nsuthan Not available 1 03/13/2023 09:49:43 Reason for Referral 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/dietitian Refer ral for Obesity Referring Physician: Angelica Lew, Internal Medicine, Encounter Date: 04/18/2022 Bariatric Surgery Referral f or Obesity Referring Physician: Angelica Lew Internal Medicine, Encounter Date: 04/18/2022 Results Created Date Observation Date Name Description Value Unit Range Abnormal Flag Note LastModifiedBy Organization Detail LastModifiedTime 07/26/1907/25/2022 LIPID PANEL cholesterol, total 155.6 mg/dL 140.0- 200.0 Not Available [facility] [address] [place], [address], 07/25/2022 20:08:50 07/26/1907/25/2022 LIPID PANEL triglyceride s 81 mg/dL <=150 Not Available [facility] Department [address] [place], [address], 07/25/2022 20:08:50 07/26/1907/25/2022 LIPID PANEL HDL cholesterol 42.4 mg/dL 40.0-1 00.0 Not Available [facility] Department [address] [place], [address], 07/25/2022 20:08:50 07/26/19 23 07/25/2022 LIPID PANEL VLDL cholesterol fernando 16.20 mg/dL 5.00-4 0.00 Not Available [facility] Department [address] [place], [address], 07/25/2022 20:08:50 07/26/19 23 07/25/2022 LIPID PANEL LDL chol calc ([facility]) 97.7 mg/dL 0.0-99 .0 Not Available [facility] Department [address] [place], [address], 07/25/2022 20:08:50 07/26/19 23 07/25/2022 COMP. METAB OLIC PANEL (14) glucose 94 mg/dL 65-99 ANION GP 15.0 mmol/ L N OSMOL 275.0 mOsM/ L N REFER ENCE RANGE : 275.0 -301. 0 Not Available [facility] Department [address] [place] [address], [address], 07/25/2022 20:08:50 07/26/19 23 07/25/2022 COMP. METAB OLIC PANEL (14) BUN 11 mg/dL 8-26 Not Available [facility] Department [address] [place] [address], [address], 07/25/2022 20:08:50 07/26/19 23 07/25/2022 COMP. METAB OLIC PANEL (14) creatinine 0.76 mg/dL 0.50-1 .40 Not Available [facility] Department [address] [place], [address], 07/25/2022 20:08:50 07/26/19 23 07/25/2022 COMP. METAB OLIC PANEL (14) eGFR 113 mL/mi n/1.7 3 >=60 Not Available [facility] Department [address] [place], [address], 07/25/2022 20:08:50 07/26/19 23 07/25/2022 COMP. METAB OLIC PANEL (14) BUN/creatini ne ratio 14.1 Not Available [facility] Department [address] [place], [address], 07/25/2022 20:08:50 07/26/19 23 07/25/2022 COMP. METAB OLIC PANEL (14) sodium 138.0 mmol/ L 136.0- 144.0 Not Available [facility] Department [address] [place] [address], [address], 07/25/2022 20:08:50 07/26/19 23 07/25/2022 COMP. METAB OLIC PANEL (14) potassium 4.4 mmol/ L 3.5-5. 3 Not Available [facility] Department [address] [place] [address], [address], 07/25/2022 20:08:50 07/26/19 23 07/25/2022 COMP. METAB OLIC PANEL (14) chloride 102 mmol/ l 101-11 1 Not Available [facility] Department [address] [place] [address], [address], 07/25/2022 20:08:50 07/26/19 23 07/25/2022 COMP. METAB OLIC PANEL (14) carbon dioxide, total 25.2 mmol/ L 21.0-3 2.0 Not Available [facility] Department [address] [place] [address], [address], 07/25/2022 20:08:50 07/26/19 23 07/25/2022 COMP. METAB OLIC PANEL (14) calcium 9.7 mg/dL 8.2-10 .0 Not Available [facility] Department [address] [place] [address], [address], 07/25/2022 20:08:50 07/26/19 23 07/25/2022 COMP. METAB OLIC PANEL (14) protein, total 7.4 g/dL 6.7-8. 2 Not Available [facility] Department [address] [place] [address], [address], 07/25/2022 20:08:50 07/26/19 23 07/25/2022 COMP. METAB OLIC PANEL (14) albumin 4.3 g/dL 3.5-5. 5 Not Available [facility] Department [address] [place] [address], [address], 07/25/2022 20:08:50 07/26/19 23 07/25/2022 COMP. METAB OLIC PANEL (14) globulin, total 3.1 g/dL 1.5-4. 5 Not Available [facility] Department [address] [place], [address], 07/25/2022 20:08:50 07/26/19 23 07/25/2022 COMP. METAB OLIC PANEL (14) A/G ratio 1.4 Not Available [facility] Department [address] [place], [address], 07/25/2022 20:08:50 07/26/19 23 07/25/2022 COMP. METAB OLIC PANEL (14) bilirubin, total 0.6 mg/dL 0.0-1. 2 Not Available [facility] Department [address] [place], [address], 07/25/2022 20:08:50 07/26/19 23 07/25/2022 COMP. METAB OLIC PANEL (14) alkaline phosphatase 62.0 IU/L 42.0-1 21.0 Not Available [facility] Department [address] [place], [address], 07/25/2022 20:08:50 07/26/19 23 07/25/2022 COMP. METAB OLIC PANEL (14) AST (SGOT) 25.9 U/L 10.0-4 2.0 Not Available [facility] Department [address] [place], [address], 07/25/2022 20:08:50 07/26/19 23 07/25/2022 COMP. METAB OLIC PANEL (14) ALT (SGPT) 37.3 U/L 10.0-6 0.0 Not Available [facility] Department [address] [place], [address], 07/25/2022 20:08:50 07/26/19 23 07/25/2022 CBC WITH DIFFE RENTI AL/PL ATELE T WBC 6.5 K/uL 3.4-10 .8 Not Available [facility] Department [address] [place], [address], 07/25/2022 20:08:51 07/26/19 23 07/25/2022 CBC WITH DIFFE RENTI AL/PL ATELE T RBC 4.5 M/uL 4.2-5. 4 Not Available [facility] Department [address] [place], [address], 07/25/2022 20:08:51 07/26/19 23 07/25/2022 CBC WITH DIFFE RENTI AL/PL ATELE T hemoglobin 14.2 g/dL 11.5-1 5.5 Not Available [facility] Department [address] [place], [address], 07/25/2022 20:08:51 07/26/19 23 07/25/2022 CBC WITH DIFFE RENTI AL/PL ATELE T hematocrit 43.2 % 36.0-4 8.0 Not Available [facility] Department [address] [place], [address], 07/25/2022 20:08:51 07/26/19 23 07/25/2022 CBC WITH DIFFE RENTI AL/PL ATELE T MCV 97 fL 80-95 above high normal Not Available [facility] Department [address] [place], [address], 07/25/2022 20:08:51 07/26/19 23 07/25/2022 CBC WITH DIFFE RENTI AL/PL ATELE T MCH 32 pg 27-32 Not Available [facility] Department [address] [place], [address], 07/25/2022 20:08:51 07/26/19 23 07/25/2022 CBC WITH DIFFE RENTI AL/PL ATELE T MCHC 33 g/dL 32-36 Not Available [facility] Department [address] [place], [address], 07/25/2022 20:08:51 07/26/19 23 07/25/2022 CBC WITH DIFFE RENTI AL/PL ATELE T RDW 12.3 % 11.5-1 4.5 Not Available [facility] Department [address] [place], [address], 07/25/2022 20:08:51 07/26/19 23 07/25/2022 CBC WITH DIFFE RENTI AL/PL ATELE T platelets 267 K/uL 155-37 9 MPV 12.8 FL 8.9-1 2.7 H Not Available [facility] Department [address] [place], [address], 07/25/2022 20:08:51 07/26/19 23 07/25/2022 CBC WITH DIFFE RENTI AL/PL ATELE T neutrophils 50.2 % 40.0-7 4.0 Not Available [facility] Department [address] [place], [address], 07/25/2022 20:08:51 07/26/19 23 07/25/2022 CBC WITH DIFFE RENTI AL/PL ATELE T lymphs 31.4 % 14.0-4 6.0 Not Available [facility] Department [address] [place], [address], 07/25/2022 20:08:51 07/26/19 23 07/25/2022 CBC WITH DIFFE RENTI AL/PL ATELE T monocytes 11.7 % 4.0-12 .0 Not Available [facility] Department [address] [place], [address], 07/25/2022 20:08:51 07/26/19 23 07/25/2022 CBC WITH DIFFE RENTI AL/PL ATELE T eos 5 % 0-5 Not Available [facility] Department [address] [place], [address], 07/25/2022 20:08:51 07/26/19 23 07/25/2022 CBC WITH DIFFE RENTI AL/PL ATELE T basos 1.1 % 0.0-1. 0 above high normal Not Available [facility] Department [address] [place], [address], 07/25/2022 20:08:51 07/26/19 23 07/25/2022 CBC WITH DIFFE RENTI AL/PL ATELE T neutrophils (absolute) 3.3 K/uL 1.4-7. 0 Not Available [facility] Department [address] [place], [address], 07/25/2022 20:08:51 07/26/19 23 07/25/2022 CBC WITH DIFFE RENTI AL/PL ATELE T lymphs (absolute) 2.0 K/uL 0.7-3. 1 Not Available [facility] Department [address] [place], [address], 07/25/2022 20:08:51 07/26/19 23 07/25/2022 CBC WITH DIFFE RENTI AL/PL ATELE T monocytes(ab solute) 0.8 K/uL 0.1-0. 9 Not Available [facility] Department [address] [place], [address], 07/25/2022 20:08:51 07/26/19 23 07/25/2022 CBC WITH DIFFE RENTI AL/PL ATELE T eos (absolute) 0.3 K/uL 0.0-0. 4 Not Available [facility] Department [address] [place], [address], 07/25/2022 20:08:51 07/26/19 23 07/25/2022 CBC WITH DIFFE RENTI AL/PL ATELE T baso (absolute) 0.1 K/uL 0.0-0. 3 Not Available [facility] Department [address] [place], [address], 07/25/2022 20:08:51 07/26/19 23 07/25/2022 CBC WITH DIFFE RENTI AL/PL ATELE T immature granulocytes 1.1 % Not Available [facility] Department [address] [place], [address], 07/25/2022 20:08:51 07/26/19 23 07/25/2022 CBC WITH DIFFE RENTI AL/PL ATELE T immature grans (abs) 0.1 K/uL Not Available [facility] Department [address] [facility], [place], [address], 07/25/2022 20:08:51 07/26/19 23 07/25/2022 CBC WITH DIFFE RENTI AL/PL ATELE T NRBC 0 % Not Available [facility] Department [address] [place], [address], 07/25/2022 20:08:51 07/26/19 23 07/26/2022 HEMOG LOBIN A1C hemoglobin A1C 5.3 % 4.8-5. 6 Predi abete s: 5.7 - 6.4 Diabe solo: >6.4 Glyce eliu contr ol for adult s with diabe solo: <7.0 Not Available [facility] ([facility]) [address] [facility], [place], [address], 07/26/2022 03:08:20 10/08/19 23 10/07/2022 rapid SARS CoV 2 Ag, QL IA, respi rator y speci men rapid SARS CoV 2 Ag, QL IA, respiratory specimen negati ve Not Available In-Office Order Internal Use Only DO Not Attach Compendium DO Not Attach Compendium, Do Not Delete/merge, [id number] 10/07/2022 12:48:27 03/08/20 24 03/08/2024 CBC W Auto Diffe renti al panel - Blood leukocytes [#/volume] in blood by automated count 14.53 text: 4.00 - 12.00 10(3)/ mcL high WBC 14.53 (H) 4.00 - 12.00 10(3) /mcL 03/08 3:22 [facility] Not Available Not Available 05/10/2024 17:35:37 03/08/20 24 03/08/2024 CBC W Auto Diffe renti al panel - Blood erythrocytes [#/volume] in blood by automated count 4.57 text: 3.80 - 5.30 10(6)/ mcL RBC 4.57 3.80 - 5.30 10(6) /mcL 03/08 3:22 AM [facility] Not Available Not Available 05/10/2024 17:35:37 03/08/20 24 03/08/2024 CBC W Auto Diffe renti al panel - Blood hemoglobin [mass/volume ] in blood 14.8 g/dL low: 12g/dL high: 15.8g/ dL HEMOG LOBIN (HGB) 14.8 12.0 - 15.8 g/dL 03/08 3:22 AM [facility] Not Available Not Available 05/10/2024 17:35:37 03/08/20 24 03/08/2024 CBC W Auto Diffe renti al panel - Blood hematocrit [volume fraction] of blood by automated count 42.9 % low: 36%hig h: 47% HEMAT OCRIT (HCT) 42.9 36.0 - 47.0 % 03/08 3:22 AM [facility] Not Available Not Available 05/10/2024 17:35:37 03/08/20 24 03/08/2024 CBC W Auto Diffe renti al panel - Blood MCV [entitic volume] by automated count 93.9 fL low: 82fLhi gh: 96fL MCV 93.9 82.0 - 96.0 fL 03/08 3:22 AM [facility] Not Available Not Available 05/10/2024 17:35:37 03/08/20 24 03/08/2024 CBC W Auto Diffe renti al panel - Blood MCH [entitic mass] by automated count 32.4 pg low: 26pghi gh: 34pg MCH 32.4 26.0 - 34.0 pg 03/08 3:22 AM [facility] Not Available Not Available 05/10/2024 17:35:37 03/08/20 24 03/08/2024 CBC W Auto Diffe renti al panel - Blood MCHC [mass/volume ] by automated count 34.5 g/dL low: 31g/dL high: 36g/dL MCHC 34.5 31.0 - 36.0 g/dL 03/08 3:22 AM [facility] Not Available Not Available 05/10/2024 17:35:37 03/08/20 24 03/08/2024 CBC W Auto Diffe renti al panel - Blood platelets [#/volume] in blood 278 text: 140 - 440 10(3)/ mcL PLATE LET COUNT 278 140 - 440 10(3) /mcL 03/08 3:22 AM [facility] Not Available Not Available 05/10/2024 17:35:37 03/08/20 24 03/08/2024 CBC W Auto Diffe renti al panel - Blood erythrocyte distribution width [ratio] by automated count 12.1 % low: 11.8%h igh: 15.5% RDW 12.1 11.8 - 15.5 % 03/08 3:22 AM [facility] Not Available Not Available 05/10/2024 17:35:37 03/08/20 24 03/08/2024 CBC W Auto Diffe renti al panel - Blood platelet mean volume [entitic volume] in blood by automated count 11.2 fL low: 9.7fLh igh: 12.4fL MPV 11.2 9.7 - 12.4 fL 03/08 3:22 AM [facility] Not Available Not Available 05/10/2024 17:35:37 03/08/20 24 03/08/2024 CBC W Auto Diffe renti al panel - Blood neutrophils/ 100 leukocytes in blood by automated count 88.6 % low: 47%hig h: 73% high NEUTR OPHIL S 88.6 (H) 47.0 - 73.0 % 03/08 3:22 AM [facility] Not Available Not Available 05/10/2024 17:35:37 03/08/20 24 03/08/2024 CBC W Auto Diffe renti al panel - Blood lymphocytes/ 100 leukocytes in blood by automated count 4.3 % low: 18%hig h: 42% low LYMPH OCYTE S 4.3 (L) 18.0 - 42.0 % 03/08 3:22 AM [facility] Not Available Not Available 05/10/2024 17:35:37 03/08/20 24 03/08/2024 CBC W Auto Diffe renti al panel - Blood monocytes/10 0 leukocytes in blood by automated count 6.5 % low: 4%high : 12% MONOC YTES 6.5 4.0 - 12.0 % 03/08 3:22 AM [facility] Not Available Not Available 05/10/2024 17:35:37 03/08/20 24 03/08/2024 CBC W Auto Diffe renti al panel - Blood eosinophils/ 100 leukocytes in blood by automated count 0.3 % low: 0%high : 5% EOSIN OPHIL S 0.3 0.0 - 5.0 % 03/08 3:22 AM [facility] Not Available Not Available 05/10/2024 17:35:37 03/08/20 24 03/08/2024 CBC W Auto Diffe renti al panel - Blood basophils/10 0 leukocytes in blood by automated count 0.3 % low: 0%high : 1% BASOP HILS 0.3 0.0 - 1.0 % 03/08 3:22 AM [facility] Not Available Not Available 05/10/2024 17:35:37 03/08/20 24 03/08/2024 CBC W Auto Diffe renti al panel - Blood neutrophils [#/volume] in blood by automated count 12.88 text: 1.60 - 7.70 10(3)/ mcL high ABSOL [facility] NEUTR OPHIL S 12.88 (H) 1.60 - 7.70 10(3) /mcL 03/08 3:22 AM [facility] Not Available Not Available 05/10/2024 17:35:37 03/08/20 24 03/08/2024 CBC W Auto Diffe renti al panel - Blood lymphocytes [#/volume] in blood by automated count 0.63 text: 1.30 - 3.20 10(3)/ mcL low ABSOL [facility] LYMPH OCYTE S 0.63 (L) 1.30 - 3.20 10(3) /mcL 03/08 3:22 AM [facility] Not Available Not Available 05/10/2024 17:35:37 03/08/20 24 03/08/2024 CBC W Auto Diffe renti al panel - Blood monocytes [#/volume] in blood by automated count 0.94 text: 0.20 - 1.00 10(3)/ mcL ABSOL [facility] MONOC YTES 0.94 0.20 - 1.00 10(3) /mcL 03/08 3:22 AM [facility] Not Available Not Available 05/10/2024 17:35:37 03/08/20 24 03/08/2024 CBC W Auto Diffe renti al panel - Blood eosinophils [#/volume] in blood by automated count 0.04 text: 0.00 - 0.40 10(3)/ mcL ABSOL [facility] EOSIN OPHIL 0.04 0.00 - 0.40 10(3) /mcL 03/08 3:22 AM [facility] Not Available Not Available 05/10/2024 17:35:37 03/08/20 24 03/08/2024 CBC W Auto Diffe renti al panel - Blood basophils [#/volume] in blood by automated count 0.04 text: 0.00 - 0.10 10(3)/ mcL ABSOL [facility] BASOP HILS 0.04 0.00 - 0.10 10(3) /mcL 03/08 3:22 AM [facility] Not Available Not Available 05/10/2024 17:35:37 03/08/20 24 03/08/2024 CBC W Auto Diffe renti al panel - Blood nucleated erythrocytes /100 leukocytes [ratio] in blood 0 NRBC PER 100 WBC 0 03/08 3:22 AM [facility] Not Available Not Available 05/10/2024 17:35:37 03/08/20 24 03/08/2024 CBC W Auto Diffe renti al panel - Blood horticultural therapist review of results Yes RESUL TS ARE CONSI STENT WITH PERIP HERAL SMEAR REVIE W Yes 03/08 3:22 AM [facility] Not Available Not Available 05/10/2024 17:35:37 03/08/20 24 03/08/2024 CBC W Auto Diffe renti al panel - Blood interpretati on and review of laboratory results Abnorm al Not Available Not Available 17:35:37 03/08/20 24 03/08/2024 Lipas e [Enzy matic activ ity/v olume ] in Serum or Plasm a lipase [enzymatic activity/vol ume] in serum or plasma 17 U/L low: 8U/Lhi gh: 78U/L LIPAS E 17 8 - 78 U/L 03/08 3:12 AM [facility] Not Available Not Available 05/10/2024 17:35:37 03/08/20 24 03/08/2024 Lipas e [Enzy matic activ ity/v olume ] in Serum or Plasm a interpretati on and review of laboratory results Normal Not Available Not Available 04/14 17:35:37 03/08/20 24 03/08/2024 Compr ehens sofie metab olic 2000 panel - Serum or Plasm a sodium [moles/volum e] in serum or plasma 138 mmol/ L low: 136mmo l/Lhig h: 145mmo l/L SODIU M 138 136 - 145 mmol/ L 03/08 3:12 AM [facility] Not Available Not Available 05/10/2024 17:35:37 03/08/20 24 03/08/2024 Compr ehens sofie metab olic 1999 panel - Serum or Plasm a potassium [moles/volum e] in serum or plasma 3.7 mmol/ L low: 3.5mmo l/Lhig h: 5.1mmo l/L POTAS SIUM 3.7 3.5 - 5.1 mmol/ L 03/08 3:12 AM [facility] Not Available Not Available 05/10/2024 17:35:37 03/08/20 24 03/08/2024 Compr ehens sofie metab olic 2000 panel - Serum or Plasm a chloride [moles/volum e] in serum or plasma 107 mmol/ L low: 98mmol /Lhigh : 107mmo l/L CHLOR CHRISTOFER 107 98 - 107 mmol/ L 03/08 3:12 AM [facility] Not Available Not Available 05/10/2024 17:35:37 03/08/20 24 03/08/2024 Compr ehens sofie metab olic 1999 panel - Serum or Plasm a carbon dioxide, total [moles/volum e] in serum or plasma 19 mmol/ L low: 22mmol /Lhigh : 30mmol /L low CO2, VENOU S 19 (L) 22 - 30 mmol/ L 03/08 3:12 AM [facility] Not Available Not Available 05/10/2024 17:35:37 03/08/20 24 03/08/2024 Compr ehens sofie metab olic 1999 panel - Serum or Plasm a anion gap in serum or plasma 15.7 mmol/ L high: 18mmol /L ANION GAP 15.7 <18.0 mmol/ L 03/08 3:12 AM [facility] Not Available Not Available 05/10/2024 17:35:37 03/08/20 24 03/08/2024 Compr ehens sofie metab olic 2000 panel - Serum or Plasm a glucose [mass/volume ] in serum or plasma 139 mg/dL low: 70mg/d Lhigh: 99mg/d L high GLUCO SE 139 (H) 70 - 99 mg/dL 03/08 3:12 AM [facility] Not Available Not Available 05/10/2024 17:35:37 03/08/20 24 03/08/2024 Compr ehens sofie metab olic 1999 panel - Serum or Plasm a urea nitrogen [mass/volume ] in serum or plasma 12 mg/dL low: 5mg/dL high: 18mg/d L BUN 12 5 - 18 mg/dL 03/08 3:12 AM [facility] Cystinosis Research FoundationT Scrip-tE R LAB Not Available Not Available 05/10/2024 17:35:37 03/08/20 24 03/08/2024 Compr AppGyverens sofie metab olic 1999 panel - Serum or Plasm a creatinine [mass/volume ] in serum or plasma 0.93 mg/dL low: 0.6mg/ dLhigh : 1mg/dL CREAT ININE , BLOOD 0.93 0.60 - 1.00 mg/dL 03/08 3:12 AM [facility] Scrip-tE R LAB Not Available Not Available 05/10/2024 17:35:37 03/08/20 24 03/08/2024 Compr AppGyverens sofie metab olic 1999 panel - Serum or Plasm a urea nitrogen/cre atinine [mass ratio] in serum or plasma 13 text: 12 - 20 ratio BUN/C REATI NINE RATIO 13 12 - 20 ratio 03/08 3:12 AM [facility] Scrip-tE R LAB Not Available Not Available 05/10/2024 17:35:37 03/08/20 24 03/08/2024 Compr ehens sofie metab olic 1999 panel - Serum or Plasm a protein [mass/volume ] in serum or plasma 8.2 g/dL low: 6.3g/d Lhigh: 8.2g/d L TOTAL PROTE IN 8.2 6.3 - 8.2 g/dL 03/08 3:12 AM [facility] C[facility] Research [facility] Not Available Not Available 05/10/2024 17:35:37 03/08/20 24 03/08/2024 Compr ehens sofie metab olic 1999 panel - Serum or Plasm a albumin [mass/volume ] in serum or plasma 4.4 g/dL low: 3.5g/d Lhigh: 5g/dL ALBUM IN 4.4 3.5 - 5.0 g/dL 03/08 3:12 AM [facility]imet[facility] R LAB Not Available Not Available 05/10/2024 17:35:37 03/08/20 24 03/08/2024 Compr ehens sofie metab olic 1999 panel - Serum or Plasm a albumin/glob ulin [mass ratio] in serum or plasma 1.2 low: 1high: 2.2 A/G RATIO 1.2 1.0 - 2.2 03/08 3:12 AM [facility] [employer] LAB Not Available Not Available 05/10/2024 17:35:37 03/08/20 24 03/08/2024 Compr ehens sofie metab olic 2000 panel - Serum or Plasm a calcium [mass/volume ] in serum or plasma 9.4 mg/dL low: 8.7mg/ dLhigh : 10.5mg /dL CALCI UM 9.4 8.7 - 10.5 mg/dL 03/08 3:12 AM [facility] Not Available Not Available 05/10/2024 17:35:37 03/08/20 24 03/08/2024 Compr ehens sofie metab olic 1999 panel - Serum or Plasm a bilirubin.to sahil [mass/volume ] in serum or plasma 0.5 mg/dL low: 0.2mg/ dLhigh : 1.2mg/ dL T BILI 0.5 0.2 - 1.2 mg/dL 03/08 3:12 AM [facility] Space MonkeyE R LAB Not Available Not Available 05/10/2024 17:35:37 03/08/20 24 03/08/2024 Compr ehens sofie metab olic 2000 panel - Serum or Plasm a aspartate aminotransfe rase [enzymatic activity/vol ume] in serum or plasma 28 U/L low: 5U/Lhi gh: 34U/L SGOT (AST) 28 5 - 34 U/L 03/08 3:12 AM [facility] [employer] [facility] Sw[employer] Not Available Not Available 05/10/2024 17:35:37 03/08/20 24 03/08/2024 Compr ehens sofie metab olic 1999 panel - Serum or Plasm a alanine aminotransfe rase [enzymatic activity/vol ume] in serum or plasma 60 U/L low: 0U/Lhi gh: 55U/L high SGPT (ALT) 60 (H) 0 - 55 U/L 03/08 3:12 AM [facility] Cystinosis Research FoundationT Scrip-tE R LAB Not Available Not Available 05/10/2024 17:35:37 03/08/20 24 03/08/2024 Compr AppGyverens sofie metab olic 2000 panel - Serum or Plasm a alkaline phosphatase [enzymatic activity/vol ume] in serum or plasma 56 U/L low: 40U/Lh igh: 150U/L ALKAL INE PHOSP HATAS E 56 40 - 150 U/L 03/08 3:12 AM [facility] [employer] Network[employer] R LAB Not Available Not Available 05/10/2024 17:35:37 03/08/20 24 03/08/2024 Compr AppGyverens sofie metab olic 1999 panel - Serum or Plasm a glomerular filtration rate/1.73 sq M.predicted among non-blacks [volume rate/area] in serum, plasma or blood by creatinine-b ased formula (MDRD) low: 60 GFR, ESTIM ATED >60 >=60 03/08 3:12 AM [facility]osis [facility]T [facility] Not Available Not Available 05/10/2024 17:35:37 03/08/20 24 03/08/2024 Compr ehens sofie metab olic 2000 panel - Serum or Plasm a glomerular filtration rate/1.73 sq M.predicted among blacks [volume rate/area] in serum, plasma or blood by creatinine-b ased formula (MDRD) low: 60 GFR, EST. AFRIC AN >60 >=60 03/08 3:12 AM [facility] [employer]osis Research [facility]T [employer] [facility] Not Available Not Available 05/10/2024 17:35:37 03/08/20 24 03/08/2024 Compr ehens sofie metab olic 2000 panel - Serum or Plasm a glomerular filtration rate/1.73 sq M.predicted among non-blacks [volume rate/area] in serum, plasma or blood by creatinine-b ased formula (MDRD) low: 60 GFR, EST. NONAF RICAN >60 >=60 03/08 3:12 AM [facility] C[facility]osis Research [facility] Not Available Not Available 05/10/2024 17:35:37 03/08/20 24 03/08/2024 Compr ehens sofie metab olic 2000 panel - Serum or Plasm a interpretati on and review of laboratory results Abnorm al Not Available Not Available 17:35:37 03/27/19 25 03/27/2024 Thyro xine (T4) free [Mass /volu me] in Serum or Plasm a thyroxine (T4) free [mass/volume ] in serum or plasma 0.8 NG/dL low: 0.7NG/ dLhigh : 1.9NG/ dL T4 FREE 0.8 0.7 - 1.9 ng/dL 03/27 2:50 PM [facility] [employer] ConsultantsT Scrip-tE R LAB Not Available Not Available 05/10/2024 17:35:37 03/27/19 25 03/27/2024 Thyro xine (T4) free [Mass /volu me] in Serum or Plasm a interpretati on and review of laboratory results Normal Not Available Not Available 04/14 17:35:37 03/27/19 25 03/27/2024 Thyro tropi n [Unit s/vol ume] in Serum or Plasm a thyrotropin [units/volum e] in serum or plasma 3.827 text: 0.300 - 5.000 mIU/L TSH 3.827 0.300 - 5.000 mIU/L 03/27 2:50 PM [facility]osis Research [facility]T [facility] Not Available Not Available 05/10/2024 17:35:37 03/27/19 25 03/27/2024 Thyro tropi n [Unit s/vol ume] in Serum or Plasm a interpretati on and review of laboratory results Normal Not Available Not Available 04/14 17:35:37 Result Notes None recorded. Problems Name Problem SNOMED Code Status Onset Date Resolution Date Notes Provider Name and Address Organization Details Recorded Time Pharyngiti s [id number] Completed 08/03/2015 Laura mathias MD Attn: Accounting ,[address], [place], [address] [place] [address] 6 11:10:44 Bronchitis 53591632 Completed 08/03/2015 Laura mathias MD Attn: Accounting ,[address], [place], [address] [place] [address] 6 11:10:44 Hypothyroi dism 01034621 Active 2022 due to Hashim magi-se es endo Not Available [facility] 3 05:27:56 Polycystic ovary syndrome 897075146 Active 2022 Not Available [facility] 3 05:27:56 Infestatio n by Sarcoptes scabiei freedom hominis [id number] Completed 08/03/2015 Laura mathias MD Attn: Accounting ,[address], [place], [address] [place] [address] 6 11:10:44 Anxiety disorder 080748940 Active Not Available [facility] 3 05:27:56 Obesity 334169076 Active with FRANK Not Available [facility] 3 05:27:56 Tonsilliti s [id number] Completed 08/03/2015 Laura mathias MD Attn: Accounting ,[address], [place], [address] [place] [address] 6 11:10:44 Problem Notes None recorded. Procedures Surgical History Date Name Laterality Status Provider Name and Address Organization Details Recorded Time Other completed Stephany Escobedo [facility] 03/13 17:19:11 Imaging Results None recorded. Procedure Notes None recorded. Medical Equipment None Reported. Allergies Allergen ID Allergen Name Allergen Category Reaction Reaction Severity Criticality Documentation Date Start Date Code Code System Note Provider Name and Address Organization Details Recorded Time 499 Product containin g penicilli n (product) medicatio n hives Not available Not available 01/28/2014 11916 8001 SNOMED Not Available Not Available Not Available 500 morphine medicatio n swelling Not available Not available 01/28/2014 7052 RxNorm Not Available Not Available Not Available Medications Name Sig Start Date Stop Date Status Note LastModified by Organization Details LastModified Time Prescripti on - Prior Authorizat ion Request 09/27 completed Not Available Not Available Not Available cetirizine 5 mg-pseudoe phedrine ER 120 mg tablet,ext ended release,12 hr 01/04 completed Not Available Not Available Not Available metformin 500 mg tablet TAKE 1 TABLET BY MOUTH IN THE MORNING AND IN THE EVENING 04/18 completed not taking Not Available Not Available Not Available clindamyci n HCl 300 mg capsule Take 1 capsule 4 times a day by oral route for 10 days. 04/18 completed Not Available Not Available Not Available azithromyc in 250 mg tablet TAKE 2 TABLETS (500 MG) BY ORAL ROUTE ONCE DAILY FOR 1 DAY THEN 1 TABLET (250 MG) BY ORAL ROUTE ONCE DAILY FOR 4 DAYS 04/18 completed Not Available Not Available Not Available hydrocodon e 5 mg-acetami nophen 325 mg tablet 04/18 completed Not Available Not Available Not Available prednisone 20 mg tablet 02/26 completed Not Available Not Available Not Available permethrin 5 % topical cream Apply 1 applicat ion by topical route for 1 day. 03/23 completed Not Available Not Available Not Available ciprofloxa cayetaon 500 mg tablet 04/18 completed Not Available Not Available Not Available sulfametho xazole 800 mg-trimeth oprim 160 mg tablet 04/18 completed Not Available Not Available Not Available tramadol 50 mg tablet 04/18 completed Not Available Not Available Not Available triamcinol one acetonide 0.1 % topical cream active Not Available Not Available Not Available levothyrox ine 75 mcg tablet TAKE 1 TABLET BY MOUTH DAILY active Not Available Not Available No t Available Microgesti n FE 04/01 (28) 1 mg-20 mcg (21)/75 mg (7) tablet Take 1 tablet every day by oral route. active Not Available Not Available No t Available famotidine 20 mg tablet active Not Available Not Available Not Available lorazepam 0.5 mg tablet Take 1 tablet twice a day by oral route for 30 days. 03/23 completed Not Available Not Available Not Available Flagyl 500 mg tablet Take 1 tablet twice a day by oral route for 7 days. 01/04 completed Not Available Not Available Not Available phenazopyr idine 100 mg tablet 01/04 completed Not Available Not Available Not Available levothyrox ine 50 mcg tablet TAKE 1 TABLET BY MOUTH DAILY 04/18 completed Not Available Not Available Not Available omeprazole 20 mg capsule,de layed release Take 1 capsule every day by oral route at bedtime for 30 days. 03/23 completed Not Available Not Available Not Available hydroxyzin e HCl 25 mg tablet Take 1 tablet every 8 hours by oral route as needed. active Not Available Not Available No t Available ranitidine 150 mg capsule Take 1 capsule twice a day by oral route. 2016 active Not Available Not Available Not Avai lable mupirocin 2 % topical ointment Apply 3 applicat ions every day by topical route for 7 days. 03/23 completed Not Available Not Available Not Available ergocalcif rosemary (vitamin D2) 1,250 mcg (50,000 unit) capsule TAKE 1 CAPSULE BY MOUTH EVERY WEEK 04/18 completed Not Available Not Available Not Available SSD 1 % topical cream 04/18 completed Not Available Not Available Not Available ondansetro n 4 mg disintegra ting tablet 04/18 completed Not Available Not Available Not Available fluticason e propionate 50 mcg/actuat ion nasal spray,susp ension active Not Available Not Available Not Available metformin ER 500 mg tablet,ext ended release 24 hr TAKE 1 TABLET BY MOUTH TWICE DAILY 01/11 completed Not Available Not Available Not Available sertraline 50 mg tablet Take 1 tablet every day by oral route for 30 days. 03/23 completed Not Available Not Available Not Available nicotine 7 mg/24 hr daily transderma l patch APPLY 1 PATCH TOPICALL Y TO THE SKIN EVERY DAY DIRECTED 04/27 completed Not Available Not Available Not Available azithromyc in 500 mg tablet Take 1 tablet every day by oral route for 5 days. active Not Available Not Available No t Available June FE .5 (28) 1.5 mg-30 mcg (21)/75 mg (7) tablet TAKE 1 TABLET BY MOUTH EVERY DAY 04/27 completed Not Available Not Available Not Available nitrofuran toin monohydrat e/macrocry stals 100 mg capsule 04/18 completed Not Available Not Available Not Available ProAir HFA 90 mcg/actuat ion aerosol inhaler Inhale 2 puffs 4 times a day by inhalati on route for 7 days. active Not Available Not Available No t Available Victoza 2-Jamar 0.6 mg/0.1 mL (18 mg/3 mL) subcutaneo us pen injector Inject 0.6 mg every day by subcutan eous route as directed . 04/27 completed not using Not Available Not Available Not Available Virtussin AC 10 mg-100 mg/5 mL oral liquid 01/04 completed Not Available Not Available Not Available Ozempic 0.25 mg or 0.5 mg (2 mg/1.5 mL) subcutaneo us pen injector INJECT 0.5 MG UNDER THE SKIN EVERY WEEK 08/01 completed Not Available Not Available Not Available Vitals Date Recorded Body height Body mass index (BMI) Body weight Body temperature Respiratory rate Heart rate Oxygen saturation Oxygen saturation in Arterial blood by Pulse oximetry Systolic blood pressure Diastolic blood pressure Provider Name and Address Organization Details Last Updated DateTime 3 152.4 cm 50.1 kg/m2 509265. 16 g 98.3 [degF] 18 /min 64 /min 99 % 99 % 118 mm[Hg] 74 mm[Hg] Suki Downey [place] [facility] 3 10:21:38 Date Recorded Body height Body mass index (BMI) Body weight Heart rate Respiratory rate Body temperature Oxygen saturation Oxygen saturation in Arterial blood by Pulse oximetry Systolic blood pressure Diastolic blood pressure Provider Name and Address Organization Details Last Updated DateTime 3 152.4 cm 45.8 kg/m2 031403. 05 g 81 /min 14 /min 98 [degF] 96 % 96 % 105 mm[Hg] 73 mm[Hg] Jeniffer Walker MA [facility] 3 09:43:18 Date Recorded Body height Body mass index (BMI) Body weight Heart rate Respiratory rate Body temperature Oxygen saturation Oxygen saturation in Arterial blood by Pulse oximetry Systolic blood pressure Diastolic blood pressure Provider Name and Address Organization Details Last Updated DateTime 3 152.4 cm 45.1 kg/m2 119179. 84 g 106 /min 16 /min 99.1 [degF] 98 % 98 % 120 mm[Hg] 76 mm[Hg] Loretta Paniagua [facility] 3 12:28:21 Date Recorded Body height Body mass index (BMI) Body weight Heart rate Respiratory rate Body temperature Oxygen saturation Oxygen saturation in Arterial blood by Pulse oximetry Systolic blood pressure Diastolic blood pressure Provider Name and Address Organization Details Last Updated DateTime 4 152.4 cm 50.4 kg/m2 408808. 55 g 104 /min 14 /min 97.5 [degF] 98 % 98 % 109 mm[Hg] 75 mm[Hg] Jeniffer Walker MA [facility] 4 10:02:52 Date Recorded Body height Body mass index (BMI) Body weight Heart rate Respiratory rate Body temperature Oxygen saturation Oxygen saturation in Arterial blood by Pulse oximetry Systolic blood pressure Diastolic blood pressure Provider Name and Address Organization Details Last Updated DateTime 4 152.4 cm 51.7 kg/m2 526672. 54 g 90 /min 16 /min 97.7 [degF] 97 % 97 % 108 mm[Hg] 74 mm[Hg] Janet Smith MA [facility] 4 09:24:03 Social History Question Answer Notes LastModified by Organizat ion Details LastModified Time Tobacco Smoking Status Former Smoker quit 2021 Jeniffer Walker MA null, [facility] 04/27/2023 09:59:58 What Is Your Level Of Alcohol Consumption? Occasional Information not available 09/27/2022 Animal Exposure? Yes 2 Dogs At Dads, 1 Dog Moms Information not available 04/18/2022 Are You Blind Or Do You Have Difficulty Seeing? Yes Glasses Information not available 04/18/2022 Is Blood Transfusion Acceptable In An Emergency? Yes Information not available 03/23/2016 Are You Or Have You Been Involved With Bullying? No [email or web address] Information not available 05/15/2014 What Is Your Level Of Caffeine Consumption? Occasional Coffee Information not available 09/27/2022 How Much Tobacco Do You Chew? None Information not available 03/23/2016 What Type Of Technical Photographer Do You Use? None [email or web address] Information not available 05/15/2014 In The 14 Days Before Symptom Onset, Have You Had Close Contact With A Laboratory-confi rmed COVID-19 While That Case Was Ill? No Information not available 04/18/2022 In The 14 Days Before Symptom Onset, Have You Had Close Contact With A Person Who Is Under Investigation For COVID-19 While That Person Was Ill? No Information not available 04/18/2022 Have You Been To An Area Known To Be High Risk For COVID-19? No Information not available 04/18/2022 Are You Currently Employed? Yes Information not available 09/27/2022 Are You Deaf Or Do You Have Serious Difficulty Hearing? No Information not available 04/18/2022 What Type Of Diet Are You Following? REGULAR Information not available 01/12/2024 Which Illicit Or Recreational Drugs Have You Used? Denies Information not available 03/23/2016 Do You Or Have You Ever Used E-cigarettes Or Vape? Current User Of Electronic Cigarettes 3% Nicotine - Quit Information not available 01/12/2024 Education 11 Information no t available 03/23/2016 What Is The Highest Grade Or Level Of School You Have Completed Or The Highest Degree You Have Received? 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 Yes [email or web address] Information not available 05/15/2014 Are There Any Guns Present In Your Home? No [email or web address] Information not available 05/15/2014 What Is Your Home Situation? Mother 50/50 With Each Parent [email or web address] Information not available 05/15/2014 Do You Use Insect Repellent Routinely? Yes [email or web address] Information not available 05/15/2014 Live Alone Or With Others? With Others Just Boyfriend. Information not available 04/18/2022 Car Seat Type Or Seat Belt? Seat Belt [email or web address] Information not available 05/15/2014 Riding In Car Front Seat? Yes [email or web address] Information not available 05/15/2014 What Was The Date Of Your Most Recent Tobacco Screening? 01/12/2024 Information not available 01/12/2024 How Many Children Do You Have? 0 Information not available 03/23/2016 What Is Your Parents' Marital Status? Unmarried [email or web address] Information not available 05/15/2014 Performs Monthly Self-breast Exam? No. Information not available 04/18/2022 Pool Exposure No [email or web address] Informatio n not available 05/15/2014 Do You Use Protection During Sex? Always Information not available 03/23/2016 What Is Your Relationship Status? Information not available 09/27/2022 Do You Use Your Seat Belt Or Car Seat Routinely? Yes Information not available 04/18/2022 Seat Belts Used Routinely Yes Information not available 03/23/2016 Are You Sexually Active? Yes Information not available 03/23/2016 Do You Have Any Siblings? 1 Brother [email or web address] Information not available 05/15/2014 Do You Have Smoke And Carbon Monoxide Detectors In Your Home? Yes [email or web address] Information not available 05/15/2014 At What Age Did You Start Smoking Tobacco? 13 Information not available 03/23/2016 Are You Passively Exposed To Smoke? Yes Mom Smokes [email or web address] Information not available 05/15/2014 Do You Or Have You Ever Used Smokeless Tobacco? Never Used Smokeless Tobacco Information not available 09/27/2022 How Much Tobacco Do You Smoke? No Information not available 04/18/2022 What Types Of Sporting Activities Do You Participate In? None [email or web address] Information not available 05/15/2014 General Stress Level Low Information not available 02/26/2018 Do You Feel Stressed (tense, Restless, Nervous, Or Anxious, Or Unable To Sleep At Night)? [id number] Information not available 04/18/2022 Do You Use Any Illicit Or Recreational Drugs? No Information not available 04/18/2022 Do You Use Sunscreen Routinely? Yes [email or web address] Information not available 05/15/2014 Has Tobacco Cessation Counseling Been Provided? Yes Information not available 09/27/2022 On What Date Was Tobacco Cessation Counseling Provided? 01/12/2024 Information not available 01/12/2024 Do You Or Have You Ever Used Any Other Forms Of Tobacco Or Nicotine? Yes Information not available 04/18/2022 Sex: Female Functional Status Question Answer Note LastModified by Organization D etails LastModified Time Are you able to care for yourself? Yes Information n ot available 09/27/2022 What is your exercise level? None Information not available 04/27/2023 Mental Status None recorded. Family History Relationship Description Onset Age of this Age Resolved Age Notes LastModified by Organization Details LastModified Time Father Diabetes mellitus [email or web address] Not available 08/02 10:51:24 Father Hypertensive disorder [email or web address] Not available 2016 17:14:00 Paternal Grandfather Diabetes mellitus [email or web address] Not available 08/02 10:51:24 Paternal Grandfather Attention deficit hyperactivit y disorder [email or web address] Not available 03/23 17:14:19 Maternal Grandmother Malignant tumor of cervix [email or web address] Not available 2016 17:15:20 Maternal Grandmother Malignant tumor of lung [email or web address] Not available 10/07 12:25:56 Maternal Aunt Malignant tumor of cervix [email or web address] Not available 2016 17:15:20 Maternal Aunt Malignant tumor of lung [email or web address] Not available 02/10 12:35:03 Maternal Aunt Malignant tumor of lung [email or web address] Not available 02/10 12:35:03 Unspecified Relation Malignant tumor of colon cousin [email or web address] Not available 02/10 12:34:39 Unspecified Relation Malignant tumor of colon matern al great grand father [email or web address] Not available 02/26/2018 12:34:39 Paternal Aunt Malignant neoplasm of brain [email or web address] Not available 02/10 12:35:30 Medical History Condition Response Coronary Artery Disease N Other N High Blood Pressure N Blood Diseases N Breast Cancer N Lung Disease N Depression Y Blood Clots N Developmental or Behavioral Disorders N Breast Problem N Premature N Anesthesia Complications N Headaches/Migraines Y Anxiety Disorder Y Muscle, Joint, or Bone Problems N Vision or Eye Problems N Head Injury/Concussion N Infertility N Polyps N Acid Reflux (GERD) Y Cancer N Stroke N ADHD N Endometriosis N Bladder or Kidney Problems N High Cholesterol N Liver Disease Y Headaches N Ear or Hearing Problems N Thyroid Problems Y Kidney or Bladder Problems Y GI Problems N Acne Y Eating Disorder N Skin Problems N Anemia N Constipation Y Heart Attack ([place]) N Diabetes N Ovarian Cancer N Bedwetting N Blood Transfusions Y Heart Problems/Murmur N Seizures/Epilepsy N Abuse/Domestic Violence N Asthma N Allergies Y Hepatitis N Heart Disease N Pre-Eclampsia N Chicken Pox N Heart Failure N Autism Spectrum Disorder (ASD) N Osteoporosis N Gynecological History Statement/Question Response Flow Moderate Date of LMP 10/03/2023 STIs/STDs Y HPV Vaccine Yes Duration of Flow (days) 4 Age at Menarche 8 Current Control Method Condoms Frequency of Cycle (Q days) 28 Sexually Active? Y Menses Monthly Y Date of Last Pap Smear Sexual Problems? N LMP Definite Desired Control Method Condoms Obstetrics History GPAL:G 0 P 0 0 0 0 Type Value Multiple Births 0 Full Term 0 Induced 0 Spontaneous 0 Premature 0 Living 0 Ectopics 0 Total 0 Immunizations Vaccine Type Date Status Note Provider Nam e and Address Organization Details Recorded Time meningococcal MCV4P 7 completed Not Available [facility] 03/30/2019 02:51:00 Hep B, unspecified formulation 9 completed Not Available [facility] 11/01/2022 15:27:23 IPV 9 completed Not Available [facility] 11/01/2022 15:27:23 Hib, unspecified formulation 0 completed Not Available [facility] 11/01/2022 15:27:22 MMR 4 completed Not Available [facility] 11/01/2022 15:27:23 DTaP, unspecified formulation 0 completed Not Available [facility] 11/01/2022 15:27:23 IPV 9 completed Not Available [facility] 11/01/2022 15:27:23 DTaP, unspecified formulation 9 completed Not Available [facility] 11/01/2022 15:27:23 meningococcal MCV4, unspecified formulation 0 completed Not Available [facility] 11/01/2022 15:27:23 DTaP, unspecified formulation 9 completed Not Available [facility] 11/01/2022 15:27:23 IPV 0 completed Not Available [facility] 11/01/2022 15:27:23 MMR 1 completed Not Available [facility] 11/01/2022 15:27:23 Hep B, unspecified formulation 0 completed Not Available [facility] 11/01/2022 15:27:23 Tdap 9 completed Not Available [facility] 11/01/2022 15:27:23 Hib, unspecified formulation 9 completed Not Available [facility] 11/01/2022 15:27:23 DTaP, unspecified formulation 0 completed Not Available [facility] 11/01/2022 15:27:23 Hep A, unspecified formulation 5 completed Not Available [facility] 11/01/2022 15:27:23 Hep B, unspecified formulation 9 completed Not Available [facility] 11/01/2022 15:27:23 HPV, unspecified formulation 2 completed Not Available [facility] 11/01/2022 15:27:23 HPV, unspecified formulation 3 completed Not Available [facility] 11/01/2022 15:27:23 pneumococcal conjugate PCV 7 1 completed Not Available [facility] 11/01/2022 15:27:23 Hib, unspecified formulation 0 completed Not Available [facility] 11/01/2022 15:27:23 DTaP, unspecified formulation 4 completed Not Available [facility] 11/01/2022 15:27:23 IPV 4 completed Not Available [facility] 11/01/2022 15:27:23 pneumococcal conjugate PCV 7 1 completed Not Available [facility] 11/01/2022 15:27:23 Hep A, unspecified formulation 7 completed Not Available [facility] 11/01/2022 15:27:23 Hib, unspecified formulation 9 completed Not Available [facility] 11/01/2022 15:27:23 Tdap 3 completed Kyle Lew MD Attn: Accounting,[address] [place], [address], [facility] 09/27/2022 14:09:51 Past Encounters Encounter ID Performer Location Encounter Start Date Encounter Closed Date Diagnosis/Indication Diagnosis SNOMED-CT Code Diagnosis ICD10 Code Diagnosis Note [id number] [facility] ([facility] [address] [place] [address] 01/28/2014 15:07:13 02/03/2014 18:14:38 Bronchitis [id number] [facility] ([facility]) [address] [place] [address] 04/14/2014 14:56:22 04/14/2014 16:44:26 Pharyngitis [id number] Yaquelin James (Peds) [address] [place] [address] 05/15/2014 11:24:56 05/15/2014 14:42:15 Gastritis 7338416 [id number] BELIA Moon (Peds) [address] [place] [address] 06/23/2014 16:14:11 06/23/2014 16:55:00 Infestation by Sarcoptes scabiei freedom hominis [id number] BELIA Almaraz (Peds) [address] [place] [address] 01/01/2015 13:52:57 01/01/2015 14:58:34 Anxiety disorder 840045366 F41.1 Obesity 748350009 E66.3 [id number] Too James (Peds) [address] [place] [address] 01/12/2015 11:24:55 01/12/2015 12:42:26 Allergic reaction 514915547 T78.40XA [id number] oTo Blasn (Peds) [address] [place] [address] 01/22/2015 10:14:48 01/22/2015 11:00:13 Anxiety disorder 414070841 F41.1 [id number] Too James (Peds) [address] [place] [address] 02/20/2015 11:38:26 02/20/2015 12:48:48 Anxiety disorder 096314853 F41.1 [id number] Too Pete James (Peds) [address] [place] [address] 04/14/2015 11:08:24 04/14/2015 12:11:40 Tonsillitis 67839035 J03.90 [id number] Too Blasn (Peds) [address] [place] [address] 05/13/2015 15:14:27 05/14/2015 13:49:50 Anxiety disorder 307795843 F41.1 [id number] Laura mahtias MD [place] (Peds) [address] [place] [address] 08/03/2015 10:41:19 08/03/2015 11:48:25 Streptococcal sore throat 60850845 J02.0 [id number] MD Jacob Scott (Peds) [address] [place] [address] 12/29/2015 15:28:31 12/30/2015 13:50:42 Cellulitis of skin 409348682 L03.90 Warm compresses 3x daily. [id number] Priscilla Murillo [facility] (MOTION PICTURE DIRECTOR) [address] [place] [address] 03/23/2016 16:48:58 03/29/2016 12:43:18 Venereal disease screening 643613202 Z11.3 RTO one week for results. [facility] care management 872639706 Z30.9 control options discussed. Pt. advised she need to quit smoking before getting on estrogen-c ontaining control. Pt. does not think she can quit smoking. Other options discussed including the Copper IUD, the Mirnea IUD, the Depo shot, and the Nexplanon. Pt. to think about it. Pamphlets given. RTO with a decision. [id number] Priscilla Murillo (MOTION PICTURE DIRECTOR) [address] [place] [address] 04/06/2016 14:02:51 04/06/2016 16:54:39 High risk sexual behavior 341613698 Z72.51 Safer sex practices discussed. Sample condoms given. RTO one week for results. [id number] Priscilla Murillo (MOTION PICTURE DIRECTOR) [address] [place] [address] 04/13/2016 16:25:04 04/14/2016 10:47:05 Bacterial vaginosis 993606194 N76.0 Diagnosis d/w pt. Rx sent to pharmacy. Instructio ns discussed. Oral contr aceptive prescribed 567628148 Z30.011 Pt. is down to one cig/day and plans on quitting. Will given OCP for one month and re-assess. If still smoking will have to use another form of control. Pt. expressed understand ing and agreement. Venereal d isease screening 472003257 Z11.3 Vaginal culture was negative for gonorrhea, chlamydia, and trichomona s, dwp. STD panel was also completely negative. Individual test results dwp. [id number] MD Jacob Scott (Peds) [address] [place] [address] 06/16/2016 11:03:04 06/16/2016 17:21:50 Streptococcal sore throat 76333287 J02.0 Referred otalgia 6275648 8 H92.09 Tylenol/Mo madai as needed for pain [id number] MD Jacob Scott (Peds) [address] [place] [address] 07/26/2016 11:13:04 07/27/2016 14:44:06 Redness of throat 112053052 J02.9 Acute bronchitis 6703746 2 J20.9 QUIT SMOKING Nonvenomou s insect bite of multiple sites 999167108 W57.XXXA Continue OTC ointment. Use bug spray next time. Also sunscreen Acute sinusitis 65012287 J01.90 [id number] MD Jacob Scott (Peds) [address] [place] [address] 10/03/2016 15:47:49 10/13/2016 09:50:50 Well child 993072759 Z00.129 Overweight in childhood 930508657 E66.3 Redness of throat 714797 008 J02.9 Nonulcer dyspepsia 68306 07 K30 Avoid spicy food, no soda Mood disorder 88533050 F 39 [id number] Priscilla An Lidia (MOTION PICTURE DIRECTOR) [address] [place] [address] 02/26/2018 11:49:58 02/27/2018 13:51:09 Venereal disease screening 061619534 Z11.3 RTO one week for results. [id number] MD Jacob Rosas 14 [address] [facility] [address] [place] [address] 01/04/2019 09:26:26 01/07/2019 09:55:47 Family planning surveillance 087282427 Z30.09 Contracept ion care management 847205202 Z30.9 Discussed contracept sofie optionsPt desires Mirena IUDRTC for insertion of device High risk sexual behavior 636309974 Z72.51 [id number] MD Lidia Parry (Adult Med) [address] [place] [address] 04/18/2022 09:47:28 04/25/2022 11:44:30 Adult health examination 082312445 Z00.00 healthy diet and exercise discussed with pt Obesity 480454478 E66.9 with fatty liver -pt wants to go to wt loss clinic- t and exercise discussed with pt Hypothyroidism 78876844 E03.9 - pt is on thyroid pill per endo - Polycystic ovary syndrome 852730539 E28.2 -pt sees [facility] [employer] [facility] and pt is on metformine [id number] MD Matilde Parryhalto (Adult Med) [address] [place] [address] 09/27/2022 08:51:07 09/28/2022 11:29:15 Administration of diphtheria, pertussis, and tetanus vaccine 619266440 Z23 Hypothyroidism 29586145 E03.9 - pt is on thyroid pill per [facility] - Obesity 651744395 E66.9 with fatty liver -pt goes to wt loss clinic- pt is on glp-1-diet and exercise discussed with pt Polycystic ovary syndrome 984048763 E28.2 -pt sees [facility] and pt is off of metformine [id number] [facility] [address] [place] [address] 10/07/2022 11:55:30 10/10/2022 10:37:43 Upper respiratory infection 33739514 J06.9 -viral syndrome -supportiv e care- keep good hydration [id number] [facility] [address] [place] [address] 04/27/2023 09:34:23 05/03/2023 15:17:07 Obesity 427231795 E66.9 with fatty liver -pt goes to wt loss clinic - pt took break for 3 months and going back again per pt- pt is on glp-1-diet and exercise discussed with pt Hypothyroidism 11983432 E03.9 - pt is on thyroid pill per [facility] - Polycystic ovary syndrome 488485175 E28.2 -pt sees [facility] [employer] [facility] and pt to go back on metformine [id number] [facility] [address] [place] [address] 01/12/2024 09:17:37 01/15/2024 10:08:12 Hypothyroidism 88643920 E03.9 - pt is on thyroid pill per [facility] - Obesity 152466378 E66.9 with fatty liver -pt goes to wt loss clinic - pt took break for 3 months and going back again per pt-diet and exercise discussed with ptpt is planning to have wt loss sxpt is going get new insurance and will try glp-1 Polycystic ovary syndrome 869262246 E28.2 -pt sees [employer] [employer] [facility] and pt did not tolerate metformin Health Concerns Section Related Observation LastModified by Organization [employer] LastModified Time None Recorded Concern Status LastModified by Organization Details LastModified Time None Recorded Advance Directives Directive None Recorded Payers Encounter Date Sequence Insurance Name Policy Number Policy Stoner Covered Member ID Stoner Member ID Guarantor Name 04/18/2022 1 *SELF PAY* Naga Avina 04/18/2022 1 [facility] ON OR AFTER 09/10/20 (MEDICAID REPLACEMENT - HMO) [facility] [id number] [facility] 09/27/2022 1 *SELF PAY* Naga Avina 09/27/2022 1 [facility] ON OR AFTER 09/10/20 (MEDICAID REPLACEMENT - HMO) [facility] [id number] [facility] 10/07/2022 1 *SELF PAY* Naga Avina 10/07/2022 1 [facility] ON OR AFTER 09/10/20 (MEDICAID REPLACEMENT - HMO) [facility] [id number] [facility] 04/27/2023 1 *SELF PAY* Naga Avina 01/12/2024 1 [facility] ON OR AFTER 09/10/20 (MEDICAID REPLACEMENT - HMO) [facility] [id number] [facility] Notes Date Note Type Note Provider Name and Address Organization Details Recorded Time 04/18/2022 text/html ObesityReported bypatient.Diagnosis Summary:diagnosis: obesity; additional diagnosis: PCOS Context:no oral steroids Associated Symptoms:no depression;hypothyroid ism Co-morbidities:metabol ic syndrome;polycystic ovary syndrome New pt with fatty liver /pcos and hypothyroidism is here to establish pcppt sees endo for low thyroid , taking med as prescribed Kyle Lew MD Attn: Accounting[address] [place], [address], [place] - [facility] 04/18/2022 16:00:59 09/27/2022 text/html ObesityReported bypatient.Diagnosis Summary:diagnosis: obesity; additional diagnosis: PCOS Context:no oral steroids Associated Symptoms:no depression;hypothyroid ism Co-morbidities:metabol ic syndrome;polycystic ovary syndrome pt with fatty liver /pcos and hypothyroidism is here for f/upt sees endo for low thyroid , taking med as prescribed Kyle Lew MD Attn: Accounting[address] [facility] [place], [address], [facility] 09/27/2022 14:10:51 10/07/2022 text/html Upper Respirator y SymptomsReported bypatient.Location:[facility] oat Quality:congested Severity:moderate; 3 days Context:no sick contacts; non-smoker Associated Symptoms:no fever;sore throat;diarrhea Kyle Lew MD Attn: Accounting,[address] [facility], [place], [address], [facility] 10/07/2022 16:21:20 04/27/2023 text/html ObesityReported bypatient.Diagnosis Summary:diagnosis: obesity; additional diagnosis: PCOS Context:no oral steroids Associated Symptoms:no depression;hypothyroid ism Co-morbidities:metabol ic syndrome;polycystic ovary syndrome pt with fatty liver /pcos and hypothyroidism is here for f/upt sees endo for low thyroid , taking med as prescribed Kyle Lew MD Attn: Accounting[address] [place], [address], [facility] 04/27/2023 10:23:46 01/12/2024 text/html ObesityReported bypatient.Diagnosis Summary:diagnosis: obesity; additional diagnosis: PCOS Context:no oral steroids Associated Symptoms:no depression;hypothyroid ism Co-morbidities:metabol ic syndrome;polycystic ovary syndrome pt with fatty liver /pcos and hypothyroidism is here for f/upt sees endo for low thyroid , taking med as prescribed Kyle Lew MD Attn: Accounting[address] [place], [address], [facility] 01/12/2024 13:06:30 OBGyn Episode No OBEpisode recorded.
--- OUTSIDE RECORDS SUMMARY | 2024-06-14 12:28 | XMS_ITS ---
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
--- OUTSIDE RECORDS SUMMARY | 2024-06-14 12:28 | XMS_ITS | Data Portability ---
Author Organization [facility] Address [address] [place] [address] [place] [address] Care Team Providers Care Fitness Sales Consultant Name Role Phone OLESYALETICIA ROSA Primary Care Provider Assessment Encounter Date Assessment Date Assessment LastModified by Organization Details LastModified Time 05/16/2024 05/16/2024 Patient is ___weeks . Discussed plan. Not available 05/16/2024 12:37:36 06/13/2024 06/13/2024 Patient is ___weeks . Discussed plan. Not available 06/13/2024 12:49:20 Plan of Treatment Reminders Order Date Submit Date Provider Last Modified By Organization Details Last Modified Time Details Appointments OB PROBLEM 2024 01:45P Sommer SAUER MD Not available Not available Not available Lab bile acids, total, serum 2024 025 [facility] (Lab), [address], [place], [address], 06/13/2024 13:13:21 Referral None recorded. Procedures None recorded. Surgeries None recorded. Imaging US, obstetric , 2nd or 3rd trimester 2024 025 [email or web address] [facility], [address], [address], [place], [address], 06/13/2024 19:16:44 US, obstetric , limited 2024 025 [email or web address] [facility], [address], [address], [place], [address], 04/29/2024 21:32:40 US, obstetric , nuchal transluce ncy 2024 025 [email or web address] [facility] [address], [place], [address], 04/18/2024 19:35:34 Medication Orders ursodiol 300 mg capsule 2024 025 [id number], [address], [place], [place], [id number], 06/13/2024 13:15:16 Patient TargetsNo targets recorded. Patient InstructionsNo instructions recorded. Reason for Referral None Reported. Results Created Date Observation Date Name Description Value Unit Range Abnormal Flag Note LastModifiedBy Organization Detail LastModifiedTime 04/16/1904/16/2024 [UNIT Y] ANEUP LOIDY NIPT fraction 5.4% normal Not Available [facility] [address] [facility], [place], [address], 04/16/2024 00:36:22 04/16/19 25 04/16/2024 [UNIT Y] ANEUP LOIDY NIPT 22Q11.2 microdeletio n LOW RISK <1 in 10,000 normal Not Available [facility] [address] [facility], [place], [address], 04/16/2024 00:36:22 04/16/19 25 04/16/2024 [UNIT Y] ANEUP LOIDY NIPT sex chromosome aneuploidy NOT DETECT ED normal Not Available [facility] [address] [facility], [place], [address], 04/16/2024 00:36:22 04/16/19 25 04/16/2024 [UNIT Y] ANEUP LOIDY NIPT monosomy X LOW RISK <1 in 10,000 normal Not Available [facility] [address] [facility], [place], [address], 04/16/2024 00:36:22 04/16/19 25 04/16/2024 [UNIT Y] ANEUP LOIDY NIPT trisomy 13 LOW RISK <1 in 10,000 normal Not Available [facility] [address], [place], [address], 04/16/2024 00:36:22 04/16/19 25 04/16/2024 [UNIT Y] ANEUP LOIDY NIPT trisomy 18 LOW RISK <1 in 10,000 normal Not Available [facility] [address], [place], [address], 04/16/2024 00:36:22 04/16/19 25 04/16/2024 [UNIT Y] ANEUP LOIDY NIPT trisomy 21 LOW RISK <1 in 10,000 normal Not Available [facility] [address], [place], [address], 04/16/2024 00:36:22 04/16/19 25 04/16/2024 [UNIT Y] ANEUP LOIDY NIPT sex FEMALE normal Not Available [facility] [address], [place], [address], 04/16/2024 00:36:22 04/16/19 25 04/16/2024 [UNIT Y] ANEUP LOIDY NIPT gestation SINGLE TON normal Not Available [facility] [address] , [place], [address], 04/16/2024 00:36:22 04/16/19 25 04/16/2024 [UNIT Y] ANEUP LOIDY NIPT for detailed report, see pdf See PDF normal Not Available [facility] [address] , [place], [address], 04/16/2024 00:36:22 04/19/19 25 04/19/2024 [UNIT Y] THOMAS Carmen sickle cell disease/beta -thalassemia /hemoglobino pathies carrier screen NEGATI VE normal Not Available [facility] [address] , [place], [address], 04/19/2024 17:40:55 04/19/19 25 04/19/2024 [UNIT Y] THOMAS Carmen alpha-thalas semia carrier screen NEGATI VE normal Not Available [facility] [address], [place], [address], 04/19/2024 17:40:55 04/19/19 25 04/19/2024 [UNIT Y] THOMAS Carmen cystic fibrosis carrier screen NEGATI VE normal Not Available [facility] [address], [place], [address], 04/19/2024 17:40:55 04/19/19 25 04/19/2024 [UNIT Y] THOMAS Carmen spinal muscular atrophy carrier screen NEGATI VE 2 SMN1 copies , SNP not presen t normal Not Available [facility] [address], [place], [address], 04/19/2024 17:40:55 04/19/19 25 04/19/2024 [UNIT Y] THOMAS DANTE Carmen for detailed report, see pdf See PDF normal Not Available [facility] [address], [place], [address], 04/19/2024 17:40:55 03/21/19 25 03/21/2024 CT/GC AND TRICH OMONA S VAGIN GRACIELA (RRNA ), URINE chlamydia trachomatis, PCR Negati ve negati ve Not Available [facility] (Lab) [address], [place], [address], 03/22/2024 14:14:39 03/21/19 25 03/21/2024 CT/GC AND TRICH OMONA S VAGIN GRACIELA (RRNA ), URINE neisseria gonorrhoeae, PCR Negati ve negati ve Not Available [facility] (Lab) [address] [place], [address], 03/22/2024 14:14:39 03/21/19 25 03/21/2024 CT/GC AND TRICH OMONA S VAGIN GRACIELA (RRNA ), URINE trichomonas vaginalis ribosomal RNA (rrna) Negati ve negati ve Not Available [facility] (Lab) [address], [place], [address], 03/22/2024 14:14:39 04/09/19 25 04/09/2024 CBC W/DIF F WBC 7.9 10'3/ uL 3.5-10 .5 Not Available [facility] (Lab) [address], [place], [address], 04/11/2024 13:43:01 04/09/19 25 04/09/2024 CBC W/DIF F RBC 4.22 10'6/ uL (based on docume nted legal sex) 3.80-5 .20 Not Available [facility] (Lab) [address], [place], [address], 04/11/2024 13:43:01 04/09/19 25 04/09/2024 CBC W/DIF F HGB 13.6 g/dL (based on docume nted legal sex) 11.6-1 5.4 Not Available [facility] (Lab) [address], [place], [address], 04/11/2024 13:43:01 04/09/19 25 04/09/2024 CBC W/DIF F HCT 40.9 % (based on docume nted legal sex) 34.0-4 5.0 Not Available [facility] (Lab) [address], [place], [address], 04/11/2024 13:43:01 04/09/19 25 04/09/2024 CBC W/DIF F MCV 96.9 fL 80.0-9 9.0 Not Available [facility] (Lab) [address], [place], [address], 04/11/2024 13:43:01 04/09/19 25 04/09/2024 CBC W/DIF F MCH 32.2 pg 27.0-3 4.0 Not Available [facility] (Lab) [address], [place], [address], 04/11/2024 13:43:01 04/09/19 25 04/09/2024 CBC W/DIF F MCHC 33.3 g/dL 32.0-3 5.5 Not Available [facility] (Lab) [address], [place], [address], 04/11/2024 13:43:01 04/09/19 25 04/09/2024 CBC W/DIF F RDW 12.5 % 11.0-1 5.0 Not Available [facility] (Lab) [address], [place], [address], 04/11/2024 13:43:01 04/09/19 25 04/09/2024 CBC W/DIF F plt 250 10'3/ uL 150-40 0 Not Available [facility] (Lab) [address], [place], [address], 04/11/2024 13:43:01 04/09/19 25 04/09/2024 CBC W/DIF F MPV 12.7 fL 8.8-12 .1 high Not Available [facility] (Lab) [address], [place], [address], 04/11/2024 13:43:01 04/09/19 25 04/09/2024 CBC W/DIF F neutrophils 65.2 % 34.0-7 3.0 Not Available [facility] (Lab) [address], [place], [address], 04/11/2024 13:43:01 04/09/19 25 04/09/2024 CBC W/DIF F lymphocytes 21.3 % 15.0-5 0.0 Not Available [facility] (Lab) [address], [place], [address], 04/11/2024 13:43:01 04/09/19 25 04/09/2024 CBC W/DIF F monocytes 8.4 % 1.0-15 .0 Not Available [facility] (Lab) [address], [place], [address], 04/11/2024 13:43:01 04/09/19 25 04/09/2024 CBC W/DIF F eosinophils 4.1 % 0.0-8. 0 Not Available [facility] (Lab) [address], [place], [address], 04/11/2024 13:43:01 04/09/19 25 04/09/2024 CBC W/DIF F basophils 0.6 % 0.0-2. 0 Not Available [facility] (Lab) [address], [place], [address], 04/11/2024 13:43:01 04/09/19 25 04/09/2024 CBC W/DIF F immature granulocytes 0.4 % no define d refere nce range Immat ure Granu locyt es (IG) repre sents autom ated enume ratio n of Metam yeloc ytes, Myelo cytes and Promy elocy solo when IG is < 5%. Blast s are not inclu ded in IG and repor adolph separ ately if prese nt. Not Available [facility] (Lab) [address], [place], [address], 04/11/2024 13:43:01 04/09/19 25 04/09/2024 CBC W/DIF F absolute neutrophils 5.1 10'3/ uL 1.5-8. 0 Not Available [facility] (Lab) [address], [place], [address], 04/11/2024 13:43:01 04/09/19 25 04/09/2024 CBC W/DIF F absolute lymphocytes 1.7 10'3/ uL 1.0-4. 0 Not Available [facility] (Lab) [address], [place], [address], 04/11/2024 13:43:01 04/09/19 25 04/09/2024 CBC W/DIF F absolute monocytes 0.7 10'3/ uL 0.2-1. 0 Not Available [facility] (Lab) [address], [place], [address], 04/11/2024 13:43:01 04/09/19 25 04/09/2024 CBC W/DIF F absolute eosinophils 0.3 10'3/ uL 0.0-0. 6 Not Available [facility] (Lab) [address], [place], [address], 04/11/2024 13:43:01 04/09/19 25 04/09/2024 CBC W/DIF F absolute basophils 0.1 10'3/ uL 0.0-0. 3 Not Available [facility] (Lab) [address], [place], [address], 04/11/2024 13:43:01 04/09/19 25 04/09/2024 CBC W/DIF F absolute immature granulocytes 0.0 10'3/ uL 0.00-0 .10 Refer ence range s for nonbi nary/ inter sex or unspe cifie d gende r patie nts have not been estab lishe d. Pleas e refer to the melissao wing table for range s estab lishe d for cisge nder patie nts and evalu ate in the clini fernando jigar xt of the indiv idual patie nt: https ://la ankit book. nm.or g/Gen derX Not Available [facility] (Lab) [address], [place], [address], 04/11/2024 13:43:01 04/09/19 25 04/09/2024 HEPAT ITIS B SURFA CE ANTIG EN hepatitis B surface antigen Non-re active non-re active This assay was perfo rmed using [employer] ratio n reage nts and test kits. Value s obtai benjamin with other assay metho ds or kits canno t be used inter mitchell eably . Not Available [facility] (Lab) [address], [place], [address], 04/11/2024 13:43:02 04/09/19 25 04/09/2024 HIV 1/2 ANTIG EN/AN TIBOD Y, REFLE X CONFI RMATI ON HIV antigen/anti body Nonrea ctive nonrea ctive HIV-1 antig en and HIV-1 /HIV- 2 antib odies were not detec adolph. No labor atory evide nce of HIV infec tion. Not Available [facility] (Lab) [address], [place], [address], 04/11/2024 13:43:02 04/09/19 25 04/09/2024 RUBEL LA IGG ANTIB LENA, QUANT rubella antibodies, IgG Reacti ve reacti ve Not Available [facility] (Lab) [address], [place], [address], 04/11/2024 13:43:02 04/09/19 25 04/09/2024 RUBEL LA IGG ANTIB LENA, QUANT rubella antibodies, IgG quant 28.4 IU/mL >=10 Non-r eacti ve (Non- Immun e) <10 IU/mL React jimena (Immu ne) > or = 10 IU/mL Not Available [facility] (Lab) [address], [place], [address], 04/11/2024 13:43:02 04/09/19 25 04/09/2024 TYPE/ RH/SC REEN ABO/Rh type A POS Not Available [facility] (Lab) [address], [place], [address], 04/11/2024 13:43:02 04/09/19 25 04/09/2024 TYPE/ RH/SC REEN antibody screen NEG Not Available [facility] (Lab) [address], [place], [address], 04/11/2024 13:43:02 04/09/19 25 04/09/2024 TYPE/ RH/SC REEN exp date 2024 23:59 Not Available [facility] (Lab) [address], [place], [address], 04/11/2024 13:43:02 04/09/19 25 04/09/2024 HCV QUANT ITIAT JIMENA PCR, 8800 HCV PCR Not Detect ed not detect ed Not Available [facility] (Lab) [address], [place], [address], 04/11/2024 13:43:03 04/09/19 25 04/09/2024 HCV QUANT ITIAT JIMENA PCR, 8800 HCV target . The HCV Quant itati ve PCR, 8800 assay is appro diana by the Food and Drug Admin istra tion (FDA) for EDTA plasm a and serum using the anamaria 8800 syste m. The assay detec ts HCV RNA using dual targe ts for highl y conse rved seque nces withi n the HCV genom e to ident kelly, but not diffe renti ate, genot ypes 1-6. The amoun t of ampli fied produ ct is sonia red to known HCV stand ards with a linea r range for the assay from 15 IU/mL to 100,0 00,00 0 IU/mL . Value s outsi de the linea r range canno t be quant ified . Not Available [facility] (Lab) [address], [place], [address], 04/11/2024 13:43:03 04/09/19 25 04/09/2024 HEMOG LOBIN A1C hemoglobin A1C 5.6 % 4.0-5. 6 The Ameri can Diabe solo Assoc iatio n recom mends that a prima ry goal of thera py jakeul d be a HBA1C of < 7% and that physi cians shoul d reeva luate the treat ment regim en in patie nts with HBA1C value s consi stent ly > 8%. <5.7% Angy l 5.7 - 6.4% Incre ased risk for diabe solo >=6.5 % Diagn ostic of diabe solo <7.0% Goal of thera py >8.0% Actio n sugge sted Not Available [facility] (Lab) [address], [place], [address], 04/11/2024 13:43:03 04/09/19 25 04/09/2024 RPR SCREE N, REFLE X TITER /CONF IRMAT ION RPR screen Nonrea ctive nonrea ctive Not Available [facility] (Lab) [address], [place], [address], 04/11/2024 13:43:04 04/09/19 25 04/09/2024 LEAD, BLOOD (ADUL T/PED IATRI C) lead, whole blood <1.0 mcg/d L <3.5 See Note 1 Edilma sis was perfo rmed by An Her ed Plasm a Mass Spect romet ry (ICPM S) Note 1 This test was devel oped and its edilma tical perfo rmanc e teresa cteri stics have been deter mined by [employer] [facility]. It has not been clear ed or appro diana by the FDA. This assay has been valid ated pursu ant to the CLIA regul ation s and is used for clini fernando purpo ses. Perfo rming Organ izati on Infor aquilessilvana n: Site ID: CB Name: [employer] ostic sCharis nicole Vlad Addre ss: [address] [place] [address] Direc tor: Rodríguez rasmussen V Virgen s Not Available [facility] (Lab) [address], [place], [address], 04/11/2024 13:43:04 04/09/19 25 04/09/2024 HEPAT ITIS C ANTIB LENA SCREE N, REFLE X TO CONFI RMATI ON hepatitis C antibody Reacti ve non-re active abnormal The HCV antib lena detec tion test is react jimena. There fore, HCV quant itati ve nucle ic acid testi ng has been order ed on this sampl e. HCV Quant itati ve nucle ic acid testi ng will be run on the [employer] anamaria 8800 Syste m. Not Available [facility] (Lab) [address], [place], [address], 04/11/2024 13:43:04 04/18/19 25 04/18/2024 CULTU RE: URINE result report SEE RESULT S BELOW Test: Cultu re: Urine Speci men Sourc e: Urine - Clean Catch Speci men Type: Urine Speci men Date: 1546 Resul t Date: 2204 Resul t Statu s: Final resul t Abnor mal: No Resul ting Lab: [facility] [address] [address] Tel: CULTU RE ----- ----- ----- --- No growt h in 1 day (dete ction level of 10,00 0 colon ies / ml.) Not Available [facility] (Lab) [address], [place], [address], 04/19/2024 23:08:45 03/21/19 25 03/21/2024 US, obste tric, 1st trime ster No observ ation record ed. [email or web address], [place], [address], 03/21/2024 21:29:57 04/04/19 25 04/04/2024 US, obste tric, 1st trime ster No observ ation record ed. [email or web address] [facility] [address], [place], [address], 04/04/2024 10:17:32 04/04/19 25 04/04/2024 US, obste tric, 1st trime ster No observ ation record ed. [email or web address], [place], [address], 04/04/2024 23:05:27 04/18/19 25 04/18/2024 US, obste tric, nucha l trans lucen cy No observ ation record ed. [email or web address] [facility] [address], [place], [address], 04/18/2024 18:38:07 04/18/19 25 04/18/2024 US, obste tric, nucha l trans lucen cy No observ ation record ed. [email or web address] [address], [place], [address], 04/18/2024 15:51:35 04/29/19 25 04/29/2024 US, obste tric, limit ed No observ ation record ed. [email or web address] [facility] [address], [place], [address], 04/29/2024 18:29:00 04/29/19 25 04/29/2024 US, obste tric, limit ed No observ ation record ed. [email or web address] [address], [place], [address], 04/30/2024 15:00:43 06/14/19 25 06/13/2024 US, obste tric, 2nd or 3rd trime ster No observ ation record ed. [email or web address] [facility] [address], [place], [address], 06/13/2024 12:14:41 06/14/19 25 06/13/2024 US, obste tric, 2nd or 3rd trime ster No observ ation record ed. [email or web address] [address], [place], [address], 06/13/2024 21:49:23 Result Notes None recorded. Problems Name Problem SNOMED Code Status Onset Date Resolution Date Notes Provider Name and Address Organization Details Recorded Time 92008276 Active 2024 Rosi carnes [place] - [facility] 13:01:03 Steatosis of liver 709699340 Active elevated liver enz. Chano Sauer MD [address], [place], [address], [facility] 5 14:36:04 Hypothyro idism 84150687 Active [facility] [address] mcgm levothyro raymond Chano Sauer MD [address], [place], [address], [facility] 5 15:33:41 Obesity 284324361 Active BMI 50 testing at 34wks Rosi Robles [facility] 5 13:51:57 Polycysti c ovary syndrome 640621516 Active Early GDM screen Chano Sauer MD [address], [place], [address], [facility] 5 14:48:04 Cardiac arrhythmi a 109536928 Active holter monintor and cardiolog y Cardiolog y referral faxed Dr Michaels office 06/13 72 hr Holter monitor order 06/13 Rosi Robles [facility] 5 13:51:49 Problem Notes None recorded. Procedures Surgical History Date Name Laterality Status Provider Name and Address Organization Details Recorded Time 4 Date of Last Pap Smear completed Lydia [facility] 12/30/2023 12:13:46 7 internal fixation of bone of face with plating system completed Lydia [facility] 07/21/2021 15:30:03 Imaging Results Imaging Date Name Status LastModified by Organization Details LastModified Time 03/21/2024 US, obstetric, 1st trimester completed [email or web address], [place], [address], 03/21/2024 21:29:57 04/04/2024 US, obstetric, 1st trimester completed [email or web address] [facility] [address], [place], [address], 04/04/2024 10:17:32 04/04/2024 US, obstetric, 1st trimester completed [email or web address], [place], [address], 04/04/2024 23:05:27 04/18/2024 US, obstetric, nuchal translucency completed [email or web address] [address] [address], [place], [address], 04/18/2024 18:38:07 04/18/2024 US, obstetric, nuchal translucency completed [email or web address], [place], [address], 04/18/2024 15:51:35 04/29/2024 US, obstetric, limited completed [email or web address] [facility] [address], [place], [address], 04/29/2024 18:29:00 04/29/2024 US, obstetric, limited completed [address], [place], [address], 04/30/2024 15:00:43 06/13/2024 US, obstetric, 2nd or 3rd trimester completed [email or web address] [facility] [address], [place], [address], 06/13/2024 12:14:41 06/13/2024 US, obstetric, 2nd or 3rd trimester active [email or web address], [place], [address], 06/13/2024 21:49:23 Procedure Notes None recorded. Medical Equipment None Reported. Allergies Allergen ID Allergen Name Allergen Category Reaction Reaction Severity Criticality Documentation Date Start Date Code Code System Note Provider Name and Address Organization Details Recorded Time 27815 Product containin g penicilli n (product) medicatio n hives severe Not available 09/21/2020 36770 4747 SNOMED Yumi Man [facility] 15:22:27 06673 morpholin e salicylat e Not available facial swelling severe Not available 09/21/2020 48411 8 RxNorm Yumi carnes [facility] 15:33:32 15494 morphine medicatio n Not available Not available Not available 09/21/2020 7052 RxNorm Yumi carnes [facility] 15:33:29 Medications Name Sig Start Date [...] completed Not Available Not Available Not Available .5 (28) 1.5 mg-30 mcg (21)/75 mg [...] Available Not Available Vitals Date Recorded Body weight Systolic blood pressure Diastolic blood pressure Provider Name and Address Organization Details Last Updated DateTime 04/18/2024 976939.978 05 g 138 mm[Hg] 94 mm[Hg] [facility] 04/18/2024 15:19:07 Date Recorded Body height Body mass index (BMI) Body weight Systolic blood pressure Diastolic blood pressure Provider Name and Address Organization Details Last Updated DateTime 05/16/2024 153.67 cm 50.7 kg/m2 539128.3 9 g 125 mm[Hg] 83 mm[Hg] [facility] 12:38:40 Date Recorded Body height Body mass index (BMI) Body weight Systolic blood pressure Diastolic blood pressure Provider Name and Address Organization Details Last Updated DateTime 06/13/2024 153.67 cm 51.1 kg/m2 971201.5 7 g 136 mm[Hg] 83 mm[Hg] [facility] 12:51:16 Social History Question Answer Notes LastModified by Organizat ion Details LastModified Time Tobacco Smoking Status Former Smoker Edmund Bai [facility] 07/21/2021 15:02:14 Do You Have An [...] Or Vape? Current User Of Electronic Cigarettes [email or web address] Information not available 07/21/2021 What Is The Highest Grade Or Level Of School You Have Completed Or The Highest Degree You Have Received? [id number] Information not available 09/21/2020 Are There Any [...] Anxious, Or Unable To Sleep At Night)? [id number] Information not available 09/21/2020 Do You Use Any Illicit Or Recreational Drugs? No Information not available 09/21/2020 Do You Use Sunscreen Routinely? No Information not available 09/21/2020 Have You Used IV Drugs? No Information not available 09/21/2020 Do You Or Have You Ever Used Any Other Forms Of Tobacco Or Nicotine? Yes Information not available 07/21/2021 Sex: Unknown Functional Status Question Answer Note LastModified by Organizat ion Details LastModified Time Do you have difficulty walking or climbing stairs? No Information not available 07/21/2021 Are you able to walk? YESWOREST Information not available 09/21/2020 Are you able to care for yourself? Yes [email or web address] Information not available 07/21/2021 Do you have difficulty dressing or bathing? No [email or web address] Information not available 07/21/2021 What is your [...] (Food, seasonal, environmental ) Y Other N Blood Transfusion N Drug/Latex Allergies/Reactions N Breast Cancer N Dermatologic Disorders N Lung Disease N [...] SNOMED-CT Code Diagnosis ICD10 Code Diagnosis Note [id number] Chano Sauer MD [facility] [address],[place] [address] 09/21/2020 15:09:06 09/21/2020 16:31:29 Abnormal uterine bleeding [id number] 9100 N93.9 We agreed to proceed with evaluation for abnormal room bleeding and infertilit y. We going to do the basic infertilit y workup as well as the labs for abnormal uterine bleeding. She is going to meet me at the hospital for the hysterosal pingogram. After that she will see Leesa Noriega for induction of ovulation and intrauteri ne inseminati on. Female infertility 46887 08 N97.9 [id number] Leesa Hurtado [facility] [address],[place] [address] 03/01/2021 09:42:21 03/01/2021 11:19:44 Irregular periods 37326714 N92.6 Weight gain 9528166 R63. 5 [id number] Leesa Hurtado [facility] [address],[place] [address] 07/21/2021 15:02:04 07/21/2021 16:11:51 Polycystic ovary syndrome [id number] E28.2 Hypothyroidism 92174209 E03.9 [id number] Chano Sauer MD [facility] [address],[place] [address] 01/17/2022 15:19:23 01/17/2022 16:42:38 Gynecologic examination 83881878 Z01.419 Annual gynecologi fernando exam performed. Patient will come back in a year unless there are new symptoms. Suggest Calcium with Vitamin D if not eating in diet. Patient advised to get annual flu shot. Recommend yearly physicals and preform monthly breast exams. Genetic testing is available for patients with family history of cancer. Engage in safe sexual practices, use condoms. Encouraged to have daily exercise. Avoid tobacco and illicit drugs, moderation of alcohol. If BMI greater than 25 dietary consult advised. If you have any questions please call or email. Cholestero l - + Pap - [facility] [id number] [facility] [address],[place] [address] 01/28/2022 14:01:10 01/28/2022 14:53:40 Irregular periods 27522623 N92.6 reviewed se risks and benefits of ocp including blood clot, stroke, [place], start next cycle. Polycystic ovary syndrome 988844135 E28.2 Hypothyroidism 22619343 E03.9 start at 25mcg daily [id number] Chano Sauer MD [facility] [address],[place] [address] 02/19/2022 10:00:16 02/22/2022 12:57:51 Non-alcoholic fatty liver 323544246 K76.0 this patient is a 20-year-ol d female presents for follow-up on liver ultrasound . She has fatty liver. It was suspected with some very mildly elevated liver enzymes. She has a markedly high BMI. She has a family history that is Strong for obesity and gestationa l diabetes and fatty liver. we spent over 40 minutes face-to-fa ce. 50% was counseling . Talked about strategies for losing weight. Talked about treatment for the prevention of type 2 diabetes. Talked about exercise and weight loss and diet. We reviewed the remainder of her laboratory evaluation . We talked about and her becoming more healthy before she attempts . She has been trying to get but she may a postpone the. [id number] Chano Sauer MD [facility] [address],[place] [address] 12/30/2023 11:57:40 12/30/2023 13:06:22 Amenorrhea 24007628 N91.2 We discussed abnormal uterine bleeding and amenorrhea . We discussed polycystic ovarian syndrome. We discussed the diagnosis. We discussed the underlying disease process. We discussed laboratory evaluation . We discussed her ultrasound and laboratory results. We discussed the prevention of endometria l cancer. We discussed protecting the endometriu m and how that is carried out. We discussed treatment in the context of a desired . We discussed medical treatment. We discussed the risk associated with PCOS and long-term health outcomes. patient to consider control of her bleeding and prevention of endometria l cancer. To contact us when she is ready to make the decision about how she wants to control bleeding and prevent cancer. Considerin g the Gynecologi c examination 76520147 Z01.419 Z11.3 Z11.8 Annual gynecologi fernando exam performed. Patient will come back in a year unless there are new symptoms. Suggest Calcium with Vitamin D if not eating in diet. Patient advised to get annual flu shot. Recommend yearly physicals and preform monthly breast exams. Genetic testing is available for patients with family history of cancer. Engage in safe sexual practices, use condoms. Encouraged to have daily exercise. Avoid tobacco and illicit drugs, moderation of alcohol. If BMI greater than 25 dietary consult advised. If you have any questions please call or email. Cholestero l - + Pap - today [id number] Yulia Howard [facility] [address],[place] [address] 03/21/2024 13:35:58 03/21/2024 14:03:30 [id number] Chano Sauer MD [facility] [address] [place] [address] 03/21/2024 13:36:11 03/21/2024 14:49:16 Routine care 678317272 Z34.90 [id number] [facility] [address] [place] [address] 04/04/2024 09:52:02 04/04/2024 10:17:09 Threatened miscarriage 70490337 O20.0 Z3A.10 [id number] [facility] [address] [place] [address] 04/18/2024 14:04:54 04/18/2024 15:09:36 screening 418020019 Z36.82 Z3A.12 [id number] Chano Sauer MD [facility] [address],[place] [address] 04/18/2024 14:05:12 04/18/2024 15:43:18 Routine care 704329998 Z34.90 [id number] [facility] [address],[place] [address] 04/29/2024 16:13:10 04/29/2024 17:00:19 Spotting per vagina in 857932802 O26.852 Z3A.14 [id number] Chano Sauer MD [facility] [address],[place] [address] 05/16/2024 11:38:22 05/16/2024 12:51:46 Routine care 248338466 Z34.90 [id number] [facility] [address],[place] [address] 06/13/2024 10:39:38 06/13/2024 12:11:02 screening for malformation 069934747 Z36.3 Z3A.20 [id number] Chano Sauer MD [facility] [address],[place] [address] 06/13/2024 10:40:00 06/13/2024 14:35:54 Itching of skin 146157840 L29.9 Routine an tenatal care 167274342 Z34.90 Palpitations 36601990 R0 0.2 Health Concerns Section Related Observation LastModified by Organization Detai ls LastModified Time None Recorded Concern Status LastModified by Organization Details LastModified Time None Recorded Advance Directives Directive N: Payers Encounter Date Sequence Insurance Name Policy Number Policy Stoner Covered Member ID Stoner Member ID Guarantor Name 04/18/2024 1 [employer] [id number] Allan Avina [id number] 2 [facility] 04/18/2024 2 [place] [facility] Mer[facility] Avina [id number] [facility] 04/29/2024 1 [employer] [id number] Allan Avina [id number] 2 [facility] 04/29/2024 2 [place] [facility] Mercy Avina [id number] Mer[facility]ina 05/16/2024 1 [employer]ET[employer] [id number] Allan Avina [id number] 2 [facility] 05/16/2024 2 [place] [facility] Avina [id number] [facility] 06/13/2024 1 [employer] [id number] Allan Avina [id number] 2 [facility] 06/13/2024 2 [place] [facility] Mer[facility] Avina [id number] [facility] 06/13/2024 1 [employer] [id number] Allan Avina [id number] 2 [facility] 06/13/2024 2 [place] [facility] [id number] [facility] Episode Ob Episode Information Episode Created Date Number of Fetuses Patient Bloodtype Patient rh Status Prepregnancy Weight lbs Domestic Partner Domestic Partner Phone Father Name Navigation Teacher Status 09/22/19 21 1 CLOSED Fetus Data First Name Last Name Admitted to NICU Weight (g) Sex Living Outcome Pediatric Complications Fetus ID Race Codes Race Delivery Type , Spontane ous [id number] Avila Calculation Initial Avila Date Initial Exam Date Initial Exam Provider Initial Ultrasound Date Last Menstrual Period Date Ultra Sound Weeks Gestation 0 Eighteen To Twenty Week Avila Update Ultra Sound Date Fundal Height At Umbil Quickening Date Ultra Sound Latest Weeks Gestation Final Avila Confirmed By Final Avila Confirmed Date Final Avila Date Ultra Sound Latest Days Gestation 0 0 Menstrual History Last Menstrual Date Menses Monthly On Bcp Conception Prior Menses Frequency Hcg Plus Date Menarche Onset Age Delivery Information Delivery Date Delivery Type Labor Anesthesia Weeks Gestation Incision Type Labor Labor Length Hrs Delivered By Post Complications Tubal Sterilization Discharge Date Comments 1 Discharge Information Feeding Method Contraceptive Method Maternal HG B and HCT Levels Ob Episode Information Episode Created Date Number of Fetuses Patient Bloodtype Patient rh Status Prepregnancy Weight lbs Domestic Partner Domestic Partner Phone Father Name Navigation Teacher Status 03/14/19 25 1 A Positive Allan OPEN Fetus Data First Name Last Name Admitted to NICU Weight (g) Sex Living Outcome Pediatric Complications Fetus ID Race Codes Race Delivery Type [id number] Problems Problem Notes Hep C antibody screen reacti ve but HCV quant not detected. Pt denies history. Pt requests repeat with 28w labs for peace of mind. JORJE, RN Problem Name Start Date End Date Resolution Snomed Code Not e Obesity 405338600 BMI 50ante haylie testing at 34wks Cardiac arrhythmia 771069259 [facility] cardiologyCardiology referral faxed Dr Michaels office hr Holter monitor order 06/13 Hypothyroidism 34591947 Lyudmila teja's88 mcgm levothyroxin Steatosis of liver 154618821 e levated liver enz. Polycystic ovary syndrome 951810335 Early GDM scree n Avila Calculation Initial [...] Type Weight in lbs Pre/Post Dialysis Refused 260.779818339246 BP Diastolic BP Location Tested BP Systolic [...] Type Weight in lbs Pre/Post Dialysis Refused 265.388686136187 BP Diastolic BP Location Tested BP Systolic [...] Weight in lbs Pre/Post Dialysis Refused Weight 264.608255159888 BP Diastolic BP Location Tested BP Systolic [...] Weight in lbs Pre/Post Dialysis Refused Weight 266.380565651276 BP Diastolic BP Location Tested BP Systolic [...]
--- OUTSIDE RECORDS SUMMARY | 2024-06-14 12:28 | XMS_ITS | Continuity of Care Document ---
Author Organization [facility] [place] Address [address] [place] [address] Care Team Providers Care Mail Machine Operator Name Role Phone MAYRA LEWJOSÉ MIGUELRISHABH Primary Care Provider Assessment Encounter Date Assessment Date Assessment LastModified by Organization Details LastModified Time 06/13/2024 06/13/2024 Patient is ___weeks . Discussed plan. [email or web address] Not available 06/13/2024 12:49:20 Plan of Treatment Reminders Order Date Submit Date Provider Last Modified By Organization Details Last Modified Time Details Appointments OB PROBLEM 2024 01:45P Sommer ALEXIS MD Not available Not available Not available Lab bile acids, total, serum 2024 025 [facility] (Lab), [address], [place], [address], 06/13/2024 13:13:21 Referral None recorded. Procedures None recorded. Surgeries None recorded. Imaging None recorded. Medication Orders ursodiol 300 mg capsule 2024 025 [id number], [address], [place], [place], [id number], 06/13/2024 13:15:16 Patient TargetsNo targets recorded. Patient InstructionsNo instructions recorded. Reason for Referral None Reported. Results Created Date Observation Date Name Description Value Unit Range Abnormal Flag Note LastModifiedBy Organization Detail LastModifiedTime 03/21/19 25 03/21/2024 US, obste tric, 1st trime ster No observ ation record ed. [email or web address] [facility] [address], [place], [address], 03/21/2024 21:29:57 04/04/19 25 04/04/2024 US, obste tric, 1st trime ster No observ ation record ed. [email or web address] [place] [address], [place], [address], 04/04/2024 10:17:32 04/04/19 25 04/04/2024 US, obste tric, 1st trime ster No observ ation record ed. [email or web address] [facility] [address], [place], [address], 04/04/2024 23:05:27 04/18/19 25 04/18/2024 US, obste tric, nucha l trans lucen cy No observ ation record ed. [email or web address] [place] [address], [place], [address], 04/18/2024 18:38:07 04/18/19 25 04/18/2024 US, obste tric, nucha l trans lucen cy No observ ation record ed. [email or web address] [address], [place], [address], 04/18/2024 15:51:35 04/29/19 25 04/29/2024 US, obste tric, limit ed No observ ation record ed. [email or web address] [place] [address], [place], [address], 04/29/2024 18:29:00 04/29/19 25 04/29/2024 US, obste tric, limit ed No observ ation record ed. [email or web address] [address], [place], [address], 04/30/2024 15:00:43 06/14/19 25 06/13/2024 US, obste tric, 2nd or 3rd trime ster No observ ation record ed. [email or web address] [place] [address], [place], [address], 06/13/2024 12:14:41 06/14/19 25 06/13/2024 US, obste tric, 2nd or 3rd trime ster No observ ation record ed. [email or web address] [address], [place], [address], 06/13/2024 21:49:23 Result Notes None recorded. Problems Name Problem SNOMED Code Status Onset Date Resolution Date Notes Provider Name and Address Organization Details Recorded Time 77873820 [facility] 13:01:03 Steatosis of liver 054837613 Active elevated liver enz. Chano Alexis MD [address], [place], [address], [facility] 14:36:04 Hypothyro idism 26866175 Active [facility] [address] mcgm levothyro raymond Chano Alexis MD [address], [place], [address], [facility] 15:33:41 Obesity 154234173 Active BMI 50 testing at 34wks Rosi carnes [facility] 13:51:57 Polycysti c ovary syndrome 451212231 Active Early GDM screen Chano Alexis MD [address], [place], [address], [facility] 14:48:04 Cardiac arrhythmi a 717727107 Active holter monintor and cardiolog y Cardiolog y referral faxed Dr Michaels office 06/13 72 hr Holter monitor order 06/13 Rosi carnes [facility] 5 13:51:49 Problem Notes None recorded. Procedures Surgical History Date Name Laterality Status Provider Name and Address Organization Details Recorded Time 4 Date of Last Pap Smear completed [facility] 12/30/2023 12:13:46 7 internal fixation of bone of face with plating system [facility] 07/21/2021 15:30:03 Imaging Results None recorded. Procedure Notes None recorded. Medical Equipment None Reported. Allergies Allergen ID Allergen Name Allergen Category Reaction Reaction Severity Criticality Documentation Date Start Date Code Code System Note Provider Name and Address Organization Details Recorded Time 60060 Product containin g penicilli n (product) medicatio n hives severe Not available 09/21/2020 87925 8001 SNOMED Yumi Man [facility] 15:22:27 14016 morpholin e salicylat e Not available facial swelling severe Not available 09/21/2020 89283 8 RxNorm Yumi [facility] 15:33:32 34432 morphine medicatio n Not available Not available Not available 09/21/2020 7052 RxNorm Yumi [facility] 15:33:29 Medications Name Sig [...] Updated DateTime 06/13/2024 153.67 cm 51.1 kg/m2 671990.5 7 g 136 mm[Hg] 83 mm[Hg] Priscilla Nickerson [facility] 12:51:16 Social History Question Answer Notes LastModified by Organizat ion Details LastModified Time Tobacco Smoking Status Former Smoker Edmund carnes [facility] 07/21/2021 15:02:14 Do You Have An Advance Directive? No [email or web address] Information not available 09/21/2020 What Is Your [...] Or Vape? Current User Of Electronic Cigarettes [email or web address] Information not available 07/21/2021 What Is The Highest Grade Or Level Of School You Have Completed Or The Highest Degree You Have Received? [id number] Information not available 09/21/2020 Are There Any [...] Anxious, Or Unable To Sleep At Night)? BH43507-5 Information not available 09/21/2020 Do You Use Any Illicit Or Recreational Drugs? No Information not available 09/21/2020 Do You Use Sunscreen Routinely? No Information not available 09/21/2020 Have You Used IV Drugs? No Information not available 09/21/2020 Do You Or Have You Ever Used Any Other Forms Of Tobacco Or Nicotine? Yes [email or web address] Information not available 07/21/2021 Sex: Unknown Functional Status Question Answer Note LastModified by Organizat ion Details LastModified Time Do you have difficulty walking or climbing stairs? No [email or web address] Information not available 07/21/2021 Are you able to walk? [email or web address] Information not available 09/21/2020 Are you able to care for yourself? Yes Information not available 07/21/2021 Do you have difficulty dressing or bathing? No Information not available 07/21/2021 What is your [...] SNOMED-CT Code Diagnosis ICD10 Code Diagnosis Note [id number] Chano Alexis MD [place] [address],[place] [address] 05/16/2024 11:38:22 05/16/2024 12:51:46 Routine care 825530605 Z34.90 [id number] [facility] [address],[place] [address] 06/13/2024 10:39:38 06/13/2024 12:11:02 screening for malformation 409991232 Z36.3 Z3A.20 [id number] Chano Alexis MD [place] [address],[place] [address] 06/13/2024 10:40:00 06/13/2024 14:35:54 Itching of skin 645203053 L29.9 Routine an tenatal care 525976143 Z34.90 Palpitations 07863681 R0 0.2 Health Concerns Section Related Observation LastModified by Organization Detai ls LastModified Time None Recorded Concern Status LastModified by Organization Details LastModified Time None Recorded Payers Encounter Date Sequence Insurance Name Policy Number Policy Stoner Covered Member ID Stoner Member ID Guarantor Name 06/13/2024 1 [employer] [id number] Allan Avina [id number] 2 [facility] 06/13/2024 2 [place] [facility] [id number] [facility] Episode Ob Episode Information Episode Created Date Number of Fetuses Patient Bloodtype Patient rh Status Prepregnancy Weight lbs Domestic Partner Domestic Partner Phone Father Name Fleet Technician Status 03/14/19 25 1 A Positive Allan OPEN Fetus Data First Name Last Name Admitted to NICU Weight (g) Sex Living Outcome Pediatric Complications Fetus ID Race Codes Race Delivery Type [id number] Problems Problem Notes Hep C antibody screen reacti ve but HCV quant not detected. Pt denies history. Pt requests repeat with 28w labs for peace of mind. JORJE, RN Problem Name Start Date End Date Resolution Snomed Code Not e Obesity 585935232 BMI 50ante haylie testing at 34wks Cardiac arrhythmia 479023299 [facility] and cardiologyCardiology referral faxed Dr Michaels office hr Holter monitor order 06/13 Hypothyroidism 48117008 Lyudmila teja's88 mcgm levothyroxin Steatosis of liver 855959183 e levated liver enz. Polycystic ovary syndrome 361782445 Early GDM scree n Avila Calculation Initial [...] Gestation 0 [email or web address] 04/18/2024 10/29/19 25 0 Pre-haylie Flowsheet Flowsheet Date 03/21/2024 Caldwell Score Blood [...] Type Weight in lbs Pre/Post Dialysis Refused 260.663293945524 BP Diastolic BP Location Tested BP Systolic [...] Type Weight in lbs Pre/Post Dialysis Refused 265.915863424624 BP Diastolic BP Location Tested BP Systolic [...] Weight in lbs Pre/Post Dialysis Refused Weight 264.910510994028 BP Diastolic BP Location Tested BP Systolic [...] Weight in lbs Pre/Post Dialysis Refused Weight 266.909444444923 BP Diastolic BP Location Tested BP Systolic [...]
== END 2024-06-14 12:20 | disposition home or self-care (01) ==
PROVIDERS: Visit Provider Obstetrics & Gynecology
DX: R00.2 Palpitations (principal)
CPT/HCPCS: 93242

== ENCOUNTER 2024-06-28 13:11 | Emergency (ER) | payer OTHER, MEDICAID, SELFPAY ==
--- OUTSIDE RECORDS SUMMARY | 2024-06-28 13:14 | XMS_ITS | Data Portability ---
Author Organization [facility] Address [address] [place] [address] [place] [address] Care Team Providers Care Hospital Mortician Name Role Phone MAYRA LEWJOSÉ MIGUELRISHABH Primary Care Provider [phone] Assessment Encounter Date Assessment Date Assessment LastModified by Organization Details LastModified Time 05/16/2024 05/16/2024 Patient is ___weeks . Discussed plan. Not available 05/16/2024 12:37:36 06/13/2024 06/13/2024 Patient is ___weeks . Discussed plan. Not available 06/13/2024 12:49:20 Plan of Treatment Reminders Order Date Submit Date Provider Last Modified By Organization Details Last Modified Time Details Appointments U/S OB GROWTH 2024 09:00A M ULTRASOUND Not available Not available Not available OB ROUTINE 2024 09:45A Sommer ASUER MD Not available Not available Not available Lab bile acids, total, serum 2024 025 [facility] (Lab), [address], [place], [address], 06/15/2024 11:52:54 Referral None recorde d. Procedures None recorde d. Surgeries None recorde d. Imaging US, obstetr ic, 2nd or 3rd trimest er 2024 025 [email or web address] [place], [address], [address], [place], [address], 06/13/2024 19:16:44 US, obstetr ic, limited 2024 025 [email or web address] [place], [address], [place], [address], 04/29/2024 21:32:40 Medication Orders ursodio l 300 mg capsule 2024 025 [id number], [address], [place], [place], [id number], 06/13/2024 13:15:16 Patient TargetsNo targets recorded. Patient InstructionsNo instructions recorded. Reason for Referral None Reported. Results Created Date Observation Date Name Description Value Unit Range Abnormal Flag Note LastModifiedBy Organization Detail LastModifiedTime 04/16/1904/16/2024 [UNIT Y] ANEUP LOIDY NIPT fraction 5.4% normal Not Available [facility] [address] [place], [address], 04/16/2024 00:36:22 04/16/19 25 04/16/2024 [UNIT Y] ANEUP LOIDY NIPT 22Q11.2 microdeletio n LOW RISK <1 in 10,000 normal Not Available [facility] [address] [place], [address], 04/16/2024 00:36:22 04/16/19 25 04/16/2024 [UNIT Y] ANEUP LOIDY NIPT sex chromosome aneuploidy NOT DETECT ED normal Not Available [facility] [address] [place], [address], 04/16/2024 00:36:22 04/16/19 25 04/16/2024 [UNIT Y] ANEUP LOIDY NIPT monosomy X LOW RISK <1 in 10,000 normal Not Available [facility] [address] [place], [address], 04/16/2024 00:36:22 04/16/19 25 04/16/2024 [UNIT Y] ANEUP LOIDY NIPT trisomy 13 LOW RISK <1 in 10,000 normal Not Available [facility] [address] [facility] [place], [address], 04/16/2024 00:36:22 04/16/19 25 04/16/2024 [UNIT Y] ANEUP LOIDY NIPT trisomy 18 LOW RISK <1 in 10,000 normal Not Available [facility] [address] [facility], [place], [address], 04/16/2024 00:36:22 04/16/19 25 04/16/2024 [UNIT Y] ANEUP LOIDY NIPT trisomy 21 LOW RISK <1 in 10,000 normal Not Available [facility] [address] [facility], [place], [address], 04/16/2024 00:36:22 04/16/19 25 04/16/2024 [UNIT Y] ANEUP LOIDY NIPT sex FEMALE normal Not Available [facility] [address] [facility], [place], [address], 04/16/2024 00:36:22 04/16/19 25 04/16/2024 [UNIT Y] ANEUP LOIDY NIPT gestation SINGLE TON normal Not Available [facility] [address] [facility], [place], [address], 04/16/2024 00:36:22 04/16/19 25 04/16/2024 [UNIT Y] ANEUP LOIDY NIPT for detailed report, see pdf See PDF normal Not Available [facility] [address] [facility], [place], [address], 04/16/2024 00:36:22 04/19/19 25 04/19/2024 [UNIT Y] THOMAS Carmen sickle cell disease/beta -thalassemia /hemoglobino pathies carrier screen NEGATI VE normal Not Available [facility] [address] [facility], [place], [address], 04/19/2024 17:40:55 04/19/19 25 04/19/2024 [UNIT Y] THOMAS Carmen alpha-thalas semia carrier screen NEGATI VE normal Not Available [facility] [address] [facility] [place], [address], 04/19/2024 17:40:55 04/19/19 25 04/19/2024 [UNIT Y] THOMAS HOWELL DARONMartina Carmen cystic fibrosis carrier screen NEGATI VE normal Not Available [facility] [address] [facility], [place], [address], 04/19/2024 17:40:55 04/19/19 25 04/19/2024 [UNIT Y] THOMAS NERIMartina Carmen spinal muscular atrophy carrier screen NEGATI VE 2 SMN1 copies , SNP not presen t normal Not Available [facility] [address], [place], [address], 04/19/2024 17:40:55 04/19/19 25 04/19/2024 [UNIT Y] THOMAS DANTE Carmen for detailed report, see pdf See PDF normal Not Available [facility] [address] [facility], [place], [address], 04/19/2024 17:40:55 04/09/19 25 04/09/2024 CBC W/DIF F WBC 7.9 10'3/ uL 3.5-10 .5 Not Available [facility] (Lab) [address] [facility], [place], [address], 04/11/2024 13:43:01 04/09/19 25 04/09/2024 CBC W/DIF F RBC 4.22 10'6/ uL (based on docume nted legal sex) 3.80-5 .20 Not Available [facility] (Lab) [address] [place], [address], 04/11/2024 13:43:01 04/09/19 25 04/09/2024 CBC W/DIF F HGB 13.6 g/dL (based on docume nted legal sex) 11.6-1 5.4 Not Available [facility] (Lab) [address] [facility], [place], [address], 04/11/2024 13:43:01 04/09/19 25 04/09/2024 CBC W/DIF F HCT 40.9 % (based on docume nted legal sex) 34.0-4 5.0 Not Available [facility] (Lab) [address], [place], [address], 04/11/2024 13:43:01 04/09/19 25 04/09/2024 CBC W/DIF F MCV 96.9 fL 80.0-9 9.0 Not Available [facility] (Lab) [address] [facility], [place], [address], 04/11/2024 13:43:01 04/09/19 25 04/09/2024 CBC W/DIF F MCH 32.2 pg 27.0-3 4.0 Not Available [facility] (Lab) [address] [facility], [place], [address], 04/11/2024 13:43:01 04/09/19 25 04/09/2024 CBC W/DIF F MCHC 33.3 g/dL 32.0-3 5.5 Not Available [facility] (Lab) [address] [facility], [place], [address], 04/11/2024 13:43:01 04/09/19 25 04/09/2024 CBC W/DIF F RDW 12.5 % 11.0-1 5.0 Not Available [facility] (Lab) [address] [facility], [place], [address], 04/11/2024 13:43:01 04/09/19 25 04/09/2024 CBC W/DIF F plt 250 10'3/ uL 150-40 0 Not Available [facility] (Lab) [address] [facility], [place], [address], 04/11/2024 13:43:01 04/09/19 25 04/09/2024 CBC W/DIF F MPV 12.7 fL 8.8-12 .1 high Not Available [facility] (Lab) [address] [facility], [place], [address], 04/11/2024 13:43:01 04/09/19 25 04/09/2024 CBC W/DIF F neutrophils 65.2 % 34.0-7 3.0 Not Available [facility] (Lab) [address] [facility], [place], [address], 04/11/2024 13:43:01 04/09/19 25 04/09/2024 CBC W/DIF F lymphocytes 21.3 % 15.0-5 0.0 Not Available [facility] (Lab) [address] [facility], [place], [address], 04/11/2024 13:43:01 04/09/19 25 04/09/2024 CBC W/DIF F monocytes 8.4 % 1.0-15 .0 Not Available [facility] (Lab) [address] [facility], [place], [address], 04/11/2024 13:43:01 04/09/19 25 04/09/2024 CBC W/DIF F eosinophils 4.1 % 0.0-8. 0 Not Available [facility] (Lab) [address] [facility], [place], [address], 04/11/2024 13:43:01 04/09/19 25 04/09/2024 CBC W/DIF F basophils 0.6 % 0.0-2. 0 Not Available [facility] (Lab) [address] [facility], [place], [address], 04/11/2024 13:43:01 04/09/19 25 04/09/2024 CBC W/DIF [...] separ ately if prese nt. Not Available [facility] (Lab) [address] [facility], [place], [address], 04/11/2024 13:43:01 04/09/19 25 04/09/2024 CBC W/DIF F absolute neutrophils 5.1 10'3/ uL 1.5-8. 0 Not Available [facility] (Lab) [address] [facility], [place], [address], 04/11/2024 13:43:01 04/09/19 25 04/09/2024 CBC W/DIF F absolute lymphocytes 1.7 10'3/ uL 1.0-4. 0 Not Available [facility] (Lab) [address] [facility], [place], [address], 04/11/2024 13:43:01 04/09/19 25 04/09/2024 CBC W/DIF F absolute monocytes 0.7 10'3/ uL 0.2-1. 0 Not Available [facility] (Lab) [address] [facility], [place], [address], 04/11/2024 13:43:01 04/09/19 25 04/09/2024 CBC W/DIF F absolute eosinophils 0.3 10'3/ uL 0.0-0. 6 Not Available [facility] (Lab) [address] [facility], [place], [address], 04/11/2024 13:43:01 04/09/19 25 04/09/2024 CBC W/DIF F absolute basophils 0.1 10'3/ uL 0.0-0. 3 Not Available [facility] (Lab) [address] [facility], [place], [address], 04/11/2024 13:43:01 04/09/19 25 04/09/2024 CBC W/DIF F absolute immature granulocytes 0.0 10'3/ uL 0.00-0 .10 Refer ence range s for nonbi nary/ inter sex or unspe cifie d gende r patie nts have not been estab lishe d. Pleas e refer to the follo wing table for range s estab lishe d for cisge nder patie nts and evalu ate in the clini fernando jigar xt of the indiv idual patie nt: [email or web address] :[email or web address] pham [email or web address] nm.or g/Gen derX Not Available [facility] (Lab) [address] [facility], [place], [address], 04/11/2024 13:43:01 04/09/1904/09/2024 HEPAT ITIS B SURFA CE ANTIG EN hepatitis B surface antigen Non-re active non-re active This assay was perfo rmed using [employer] ratio n reage nts and test kits. Value s obtai benjamin with other assay metho ds or kits canno t be used inter mitchell eably . Not Available [facility] (Lab) [address] [facility], [place], [address], 04/11/2024 13:43:02 04/09/19 25 04/09/2024 HIV 1/2 ANTIG EN/AN TIBOD Y, REFLE X CONFI RMATI ON HIV antigen/anti body Nonrea ctive nonrea ctive HIV-1 antig en and HIV-1 /HIV- 2 antib odies were not detec adolph. No labor atory evide nce of HIV infec tion. Not Available [facility] (Lab) [address] [facility], [place], [address], 04/11/2024 13:43:02 04/09/1904/09/2024 RUBEL LA IGG ANTIB LENA, QUANT rubella antibodies, IgG Reacti ve reacti ve Not Available [facility] (Lab) [address] [place], [address], 04/11/2024 13:43:02 04/09/19 25 04/09/2024 RUBEL LA IGG ANTIB LENA, QUANT rubella antibodies, IgG quant 28.4 IU/mL >=10 Non-r eacti ve (Non- Immun e) <10 IU/mL React jimena (Immu ne) > or = 10 IU/mL Not Available [facility] (Lab) [address] [facility], [place], [address], 04/11/2024 13:43:02 04/09/19 25 04/09/2024 TYPE/ RH/SC REEN ABO/Rh type A POS Not Available [facility] (Lab) [address] [facility], [place], [address], 04/11/2024 13:43:02 04/09/19 25 04/09/2024 TYPE/ RH/SC REEN antibody screen NEG Not Available [facility] (Lab) [address] [facility], [place], [address], 04/11/2024 13:43:02 04/09/19 25 04/09/2024 TYPE/ RH/SC REEN exp date 2024 23:59 Not Available [facility] (Lab) [address] [facility], [place], [address], 04/11/2024 13:43:02 04/09/19 25 04/09/2024 HCV QUANT ITIAT JIMENA PCR, 8800 HCV PCR Not Detect ed not detect ed Not Available [facility] (Lab) [address] [facility], [place], [address], 04/11/2024 13:43:03 04/09/19 25 04/09/2024 HCV QUANT [...] t be quant ified . Not Available [facility] (Lab) [address] [facility], [place], [address], 04/11/2024 13:43:03 04/09/19 25 04/09/2024 HEMOG LOBIN A1C hemoglobin A1C 5.6 % 4.0-5. 6 The Ameri can Diabe solo Assoc iatio n recom mends that a prima ry goal of thera py shoul d be a HBA1C of < 7% and that physi cians shoul d reeva luate the treat ment regim en in patie nts with HBA1C value s consi stent ly > 8%. <5.7% Angy l 5.7 - 6.4% Incre ased risk for diabe solo >=6.5 % Diagn ostic of diabe solo <7.0% Goal of thera py >8.0% Actio n sugge sted Not Available [facility] (Lab) [address] [facility], [place], [address], 04/11/2024 13:43:03 04/09/19 25 04/09/2024 RPR SCREE N, REFLE X TITER /CONF IRMAT ION RPR screen Nonrea ctive nonrea ctive Not Available [facility] (Lab) [address] [place], [address], 04/11/2024 13:43:04 04/09/19 25 04/09/2024 LEAD, BLOOD (ADUL T/PED IATRI C) lead, whole blood <1.0 mcg/d L <3.5 See Note 1 Edilma sis was perfo rmed by An Her ed Plasm a Mass Spect romet ry (ICPM S) Note 1 This test was devel oped and its edilma tical perfo rmanc e teresa cteri stics have been deter mined by [facility]. It has not been clear ed or appro diana by the FDA. This assay has been valid ated pursu ant to the CLIA regul ation s and is used for clini fernando purpo ses. Perfo rming Organ izati on Infor matio n: Site ID: CB Name: [facility] Chu Addre ss: [address] [place] [address] Direc tor: Rodríguez trevizo Not Available [facility] (Lab) [address] [place], [address], 04/11/2024 13:43:04 04/09/19 25 04/09/2024 HEPAT ITIS [...] testi ng will be run on the [employer] anamaria [address]. Not Available [facility] (Lab) [address] [place], [address], 04/11/2024 13:43:04 04/18/19 25 04/18/2024 CULTU RE: URINE result report SEE RESULT S BELOW Test: Cultu re: Urine Speci men Sourc e: Urine - Clean Catch Speci men Type: Urine Speci men Date: 1546 Resul t Date: 2204 Resul t Statu s: Final resul t Abnor mal: No Resul ting Lab: [facility] [address] [facility] [address] Tel: CULTU RE ----- ----- ----- --- No growt h in 1 day (dete ction level of 10,00 0 colon ies / ml.) Not Available [facility] (Lab) [address] [place], [address], 04/19/2024 23:08:45 06/15/19 25 06/14/2024 TSH, REFLE X FREE T4 TSH 1.90 uIU/m L 0.30-5 .33 Not Available [facility] (Lab) [address] [facility] [place], [address], 06/15/2024 11:52:53 06/15/19 25 06/14/2024 BILE ACIDS , TOTAL bile acids, total 6 umol/ L 0-10 Test Perfo rmed by: [facility] [address] [place] [address] Not Available [facility] (Lab) [address] [facility], [place], [address], 06/15/2024 11:52:54 04/04/19 25 04/04/2024 US, obste tric, 1st trime ster No observ ation record ed. [email or web address] [place] [address], [place], [address], 04/04/2024 10:17:32 04/04/19 25 04/04/2024 US, obste tric, 1st trime ster No observ ation record ed. [email or web address], [place], [address], 04/04/2024 23:05:27 04/18/19 25 04/18/2024 US, obste tric, nucha l trans lucen cy No observ ation record ed. [email or web address] [place] [address], [place], [address], 04/18/2024 18:38:07 04/18/19 25 04/18/2024 US, obste tric, nucha l trans lucen cy No observ ation record ed. [email or web address], [place], [address], 04/18/2024 15:51:35 04/29/19 25 04/29/2024 US, obste tric, limit ed No observ ation record ed. [email or web address] [place] [address], [place], [address], 04/29/2024 18:29:00 04/29/19 25 04/29/2024 US, obste tric, limit ed No observ ation record ed. [email or web address] [address], [place], [address], 04/30/2024 15:00:43 06/14/19 25 06/13/2024 US, obste tric, 2nd or 3rd trime ster No observ ation record ed. [email or web address] [place] [address], [place], [address], 06/13/2024 12:14:41 06/14/19 25 06/13/2024 US, obste tric, 2nd or 3rd trime ster No observ ation record ed. [email or web address] [address], [place], [address], 06/20/2024 13:44:39 06/25/19 25 06/14/2024 peg r monit or No observ ation record ed. [address], [address], 06/27/2024 17:08:04 06/25/19 25 06/14/2024 peg r monit or No observ ation record ed. [address] (Pulmonary) [address] [place] [address], [address], 06/27/2024 17:08:04 Result Notes None recorded. Problems Name Problem SNOMED Code Status Onset Date Resolution Date Notes Provider Name and Address Organization Details Recorded Time 88230815 Active 2024 oRsi carnes [facility] 5 13:01:03 Steatosis of liver 973457582 Active elevated liver enz. Chano Sauer MD [address], [place], [address], [facility] 5 14:36:04 Hypothyro idism 54791955 Active [facility] '[facility] 88 mcgm levothyro raymond RPT TSH 4 wks @24wk visit Rosi Robles [facility] 5 09:50:18 Obesity 795627209 Active BMI 50 testing at 34wks Rosi Robles [facility] 5 13:51:57 Polycysti c ovary syndrome 760337924 Active Early GDM screen Chano Sauer MD [address], [place], [address], [facility] 5 14:48:04 Cardiac arrhythmi a 262499571 Active holter monintor and cardiolog y Cardiolog y referral faxed Dr Michaels office 06/13 72 hr Holter monitor order 06/13 Rosi Robles [facility] 5 13:51:49 Problem Notes None recorded. Procedures Surgical History Date Name Laterality Status Provider Name and Address Organization Details Recorded Time 4 Date of Last Pap Smear completed [facility] 12/30/2023 12:13:46 7 internal fixation of bone of face with plating system completed [facility] 07/21/2021 15:30:03 Imaging Results Imaging Date Name Status LastModified by Organization Details LastModified Time 04/04/2024 US, obstetric, 1st trimester completed [email or web address] [place] [address], [place], [address], 04/04/2024 10:17:32 04/04/2024 US, obstetric, 1st trimester completed [email or web address], [place], [address], 04/04/2024 23:05:27 04/18/2024 US, obstetric, nuchal translucency completed [email or web address] [place] [address], [place], [address], 04/18/2024 18:38:07 04/18/2024 US, obstetric, nuchal translucency completed [email or web address], [place], [address], 04/18/2024 15:51:35 04/29/2024 US, obstetric, limited completed [email or web address] [place] [address], [place], [address], 04/29/2024 18:29:00 04/29/2024 US, obstetric, limited completed [email or web address], [place], [address], 04/30/2024 15:00:43 06/13/2024 US, obstetric, 2nd or 3rd trimester completed [email or web address] [place] [address], [place], [address], 06/13/2024 12:14:41 06/13/2024 US, obstetric, 2nd or 3rd trimester completed [email or web address], [place], [address], 06/20/2024 13:44:39 06/14/2024 holter monitor completed [address], [address], 06/27/2024 17:08:04 06/14/2024 holter monitor completed [address] (Pulmonary) [address] [place] [address], [address], 06/27/2024 17:08:04 Procedure Notes None recorded. Medical Equipment None Reported. Allergies Allergen ID Allergen Name Allergen Category Reaction Reaction Severity Criticality Documentation Date Start Date Code Code System Note Provider Name and Address Organization Details Recorded Time 90741 Product containin g penicilli n (product) medicatio n hives severe Not available 09/21/2020 918801 7970 SNOMED Yumidenisse Man [facility] 15:22:27 43553 morpholin e salicylat e Not available facial swelling severe Not available 09/21/2020 95701 8 RxNorm Yumi carnes [facility] 15:33:32 28407 morphine medicatio n Not available Not available Not available 09/21/2020 7052 RxNorm Yumi carnes [facility] 15:33:29 Medications Name Sig Start [...] completed Not Available Not Available Not Available (28) 1.5 mg-30 mcg (21)/75 mg (7) [...] Updated DateTime 05/16/2024 153.67 cm 50.7 kg/m2 267560.3 9 g 125 mm[Hg] 83 mm[Hg] [facility] 5 12:38:40 Date Recorded Body height Body mass index (BMI) Body weight Systolic blood pressure Diastolic blood pressure Provider Name and Address Organization Details Last Updated DateTime 06/13/2024 153.67 cm 51.1 kg/m2 279063.5 7 g 136 mm[Hg] 83 mm[Hg] [facility] 5 12:51:16 Date Recorded Body height Body mass index (BMI) Body weight Systolic blood pressure Diastolic blood pressure Provider Name and Address Organization Details Last Updated DateTime 06/26/2024 153.67 cm 51.3 kg/m2 307932.1 6 g 118 mm[Hg] 78 mm[Hg] [facility] 14:53:46 Social History Question Answer Notes LastModified by Organizat ion Details LastModified Time Tobacco Smoking Status Former Smoker Edmund Bai [facility] 07/21/2021 15:02:14 Do You Have An Advance Directive? No [email or web address] Information not available 09/21/2020 What Is Your [...] Or Vape? Current User Of Electronic Cigarettes [email or web address] Information not available 07/21/2021 What Is The Highest Grade Or Level Of School You Have Completed Or The Highest Degree You Have Received? [id number] Information not available 09/21/2020 Are There Any [...] Anxious, Or Unable To Sleep At Night)? [id number] Information not available 09/21/2020 Do You Use Any Illicit Or Recreational Drugs? No Information not available 09/21/2020 Do You Use Sunscreen Routinely? No Information not available 09/21/2020 Have You Used IV Drugs? No Information not available 09/21/2020 Do You Or Have You Ever Used Any Other Forms Of Tobacco Or Nicotine? Yes [email or web address] Information not available 07/21/2021 Sex: Unknown Functional Status Question Answer Note LastModified by Organizat ion Details LastModified Time Do you have difficulty walking or climbing stairs? No [email or web address] Information not available 07/21/2021 Are you able to walk? [email or web address] Information not available 09/21/2020 Are you able to care for yourself? Yes [email or web address] Information not available 07/21/2021 Do you have difficulty dressing or bathing? No [email or web address] Information not available 07/21/2021 What is your [...] SNOMED-CT Code Diagnosis ICD10 Code Diagnosis Note [id number] Chano Sauer MD [place] [address] [address] 09/21/2020 15:09:06 09/21/2020 16:31:29 Abnormal uterine bleeding 6004562230 9100 N93.9 We agreed to proceed with [...] and intrauteri ne inseminati on. Female infertility 91033 08 N97.9 [id number] Leesa Hurtado CNM [place] [address],[place] [address] 03/01/2021 09:42:21 03/01/2021 11:19:44 Irregular periods 32383401 N92.6 Weight gain 6193577 R63. 5 [id number] Leesa Hurtado CNM [place] [address],[place] [address] 07/21/2021 15:02:04 07/21/2021 16:11:51 Polycystic ovary syndrome 056647916 E28.2 Hypothyroidism 11430755 E03.9 [id number] Chano Sauer MD [place] [address],[place] [address] 01/17/2022 15:19:23 01/17/2022 16:42:38 Gynecologic examination 19917783 Z01.419 Annual gynecologi fernando exam performed. Patient [...] Cholestero l - + Pap - today [id number] [facility] [address],[place] [address] 01/28/2022 14:01:10 01/28/2022 14:53:40 Irregular periods 97388694 N92.6 reviewed se risks and benefits of ocp including blood clot, stroke, DE, start next cycle. Polycystic ovary syndrome 635084505 E28.2 Hypothyroidism 93258002 E03.9 start at 25mcg daily [id number] Chano Sauer MD [place] [address],[place] [address] 02/19/2022 10:00:16 02/22/2022 12:57:51 Non-alcoholic fatty liver 663602549 K76.0 this patient is a 20-year-ol d [...] get but she may a postpone the. [id number] Chano Sauer MD [place] [address],[place] [address] 12/30/2023 11:57:40 12/30/2023 13:06:22 Amenorrhea 64559997 N91.2 We discussed abnormal uterine bleeding and [...] cancer. Considerin g the Gynecologi c examination 26969500 Z01.419 Z11.3 Z11.8 Annual gynecologi fernando exam [...] Cholestero l - + [facility] [id number] [facility] [address] [address] 03/21/2024 13:35:58 03/21/2024 14:03:30 [id number] Chano Sauer MD [place] [address],[place] [address] 03/21/2024 13:36:11 03/21/2024 14:49:16 Routine care 346620159 Z34.90 [id number] [facility] [address] [address] 04/04/2024 09:52:02 04/04/2024 10:17:09 Threatened miscarriage 41147338 O20.0 Z3A.10 [id number] [facility] [address],[place] [address] 04/18/2024 14:04:54 04/18/2024 15:09:36 screening [id number] Z36.82 Z3A.12 [id number] Chano Sauer MD [place] [address],[place] [address] 04/18/2024 14:05:12 04/18/2024 15:43:18 Routine care 845734432 Z34.90 [id number] [facility] [address],[place] [address] 04/29/2024 16:13:10 04/29/2024 17:00:19 Spotting per vagina in 745263571 O26.852 Z3A.14 [id number] Chano Sauer MD [place] [address],[place] [address] 05/16/2024 11:38:22 05/16/2024 12:51:46 Routine care 166387832 Z34.90 [id number] [facility] [address],[place] [address] 06/13/2024 10:39:38 06/13/2024 12:11:02 screening for malformation 104521165 Z36.3 Z3A.20 [id number] Chano Sauer MD [place] [address],[place] [address] 06/13/2024 10:40:00 06/13/2024 14:35:54 Itching of skin 229354533 L29.9 Routine an tenatal care 296066937 Z34.90 Palpitations 67559040 R0 0.2 [id number] Chano Sauer MD [place] [address],[place] [address] 06/26/2024 14:23:27 06/26/2024 15:21:16 Routine care 188642549 Z34.90 Health Concerns Section Related Observation LastModified by Organization Detai ls LastModified Time None Recorded Concern Status LastModified by Organization Details LastModified Time None Recorded Advance Directives Directive N: Payers Encounter Date Sequence Insurance Name Policy Number Policy Stoner Covered Member ID Stoner Member ID Guarantor Name 04/29/2024 1 [employer] [id number] Allan Avina [id number] 2 [facility] 04/29/2024 2 [place] [facility] [id number] [facility] 05/16/2024 1 [employer] [id number] Allan Avina [id number] 2 [facility] 05/16/2024 2 [place] [facility] [id number] [facility] 06/13/2024 1 [employer] [id number] Allan Avina [id number] 2 [facility] 06/13/2024 2 [place] [facility] [id number] [facility] 06/13/2024 1 [employer] [id number] Allan Avina [id number] 2 [facility] 06/13/2024 2 [place] [facility] Mercy Fernandezers [id number] [facility] 06/26/2024 1 [employer] [id number] Allan Avina [id number] 2 [facility] 06/26/2024 2 [place] [facility] [id number] [facility] OBGyn Episode Ob Episode Information Episode Created Date Number of Fetuses Patient Bloodtype Patient rh Status Prepregnancy Weight lbs Domestic Partner Domestic Partner Phone Father Name Vinyl Hanger Status 09/22/19 21 1 CLOSED Fetus Data First Name Last Name Admitted to NICU Weight (g) Sex Living Outcome Pediatric Complications Fetus ID Race Codes Race Delivery Type , Spontane ous [id number] Avila Calculation Initial Avila Date Initial Exam [...] Domestic Partner Domestic Partner Phone Father Name Vinyl Hanger Status 03/14/19 25 1 A Positive Allan OPEN Fetus Data First Name Last Name Admitted to NICU Weight (g) Sex Living Outcome Pediatric Complications Fetus ID Race Codes Race Delivery Type [id number] Problems Problem Notes Hep C antibody screen reacti ve but HCV quant not detected. Pt denies history. Pt requests repeat with 28w labs for peace of mind. JORJE, RN Problem Name Start Date End Date Resolution Snomed Code Not e Obesity [id number] BMI 50ante testing at 34wks Cardiac arrhythmia 120767071 [facility] cardiologyCardiology referral faxed Dr [place]els office hr Holter monitor order 06/13 Hypothyroidism 36995657 Lyudmila teja's88 mcgm levothyroxin RPT TSH 4 wks @24wk visit Steatosis of liver 238616541 e levated liver enz. Polycystic ovary syndrome 803047212 Early GDM scree n Avila Calculation Initial [...] Type Weight in lbs Pre/Post Dialysis Refused 260.717347400308 BP Diastolic BP Location Tested BP Systolic [...] Type Weight in lbs Pre/Post Dialysis Refused 265.581190630166 BP Diastolic BP Location Tested BP Systolic [...] Weight in lbs Pre/Post Dialysis Refused Weight 264.754303808122 BP Diastolic BP Location Tested BP Systolic [...] Weight in lbs Pre/Post Dialysis Refused Weight 266.106025024302 BP Diastolic BP Location Tested BP Systolic BP Type 83 L arm 136 sitting Fetus Heart Rate Present Fetus Movement A Yes Comments patient reports symptomatic palpitations, to obtain Cardiology consult and Holter monitor prior to. Pruritus of palms and plantar surfaces of the feet. To obtain bile acids and start ursodiol Flowsheet Date 06/26/2024 Caldwell Score Blood Edema Fundus Height Fundus Units Glucose Ketones Leukocytes Nitrite Labor Signs Protein Cervic Dilation Cervic Effacement Cervic Station Type Weight in lbs Pre/Post Dialysis Refused Weight 267.285150140850 BP Diastolic BP Location Tested BP Systolic BP Type 78 118 sitting Fetus Heart Rate Present A 150 Present Fetus Movement A Yes Comments Patient had Holter monitor. Some findings in the monitoring that I am unfamiliar with and can not manage. To have cardiology consult. Menstrual History Last Menstrual Date Menses Monthly [...]
--- OUTSIDE RECORDS SUMMARY | 2024-06-28 13:14 | XMS_ITS ---
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
--- OUTSIDE RECORDS SUMMARY | 2024-06-28 13:14 | XMS_ITS | Data Portability ---
Author Organization [facility] Address [address] [place] [address] Care Team Providers Care Manager Cardiovascular Name Role Phone MAYRA LEWJOSÉ MIGUELRISHABH Primary [...] DO Not Attach Compendium, Do Not Delete/merge, [id number] 10/07/2022 16:20:38 CMP, serum or plasma 2022 023 [facility], [address] [place] [address], [address], [place], [address], 07/25/2022 20:08:50 CBC w/ auto diff 2022 023 [facility], [address] [facility], [address], [place], [address], 07/25/2022 20:08:51 lipid panel, serum 2022 023 [facility], [facility] [facility], [address], [place], [address], 07/25/2022 20:08:50 HbA1c (hemogl obin A1c), blood 2022 023 [facility], [address], [address], [place], [address], 07/26/2022 03:08:20 Referral nutriti onist/d ietitia n referra l [address], [address] [facility] , [place], [address], 07/19/2022 13:54:43 bariatr ic surgery referra l 2022 023 KAL[facility] Clifford Gardiner MD, [address] [facility] , [address], [place], [address], 07/18/2022 12:41:19 Procedures None recorde d. Surgeries None recorde d. Imaging None recorde d. Medication Orders metform in ER 500 mg tablet, extende d release 24 hr 2023 024 [id number], [address], [place], [place], [id number], 01/12/2024 09:43:16 Ozempic 0.25 mg or 0.5 mg (2 mg/1.5 mL) subcuta neous pen injecto r 2022 023 [email or web address] Not available 08/01/2022 12:04:39 Patient TargetsNo targets recorded. Patient Instructions Encounter Date Encounter Id Patient Instructions Last Modified By Organization Details Last Modified Time 04/18/2022 [id number] A healthy lifestyle: care instructions nsuthan Not available 04/18/2022 10:48:03 diet and exercis e for metabolic syndrome: care instructions nsuthan Not available 04/18/2022 10:48:03 3 month with labs nsuthan Not availabl e 04/18/2022 10:48:20 09/27/2022 [id number] A healthy lifestyle: care instructions nsuthan Not available 09/27/2022 10:05:41 tdap/f/u in 4month nsuthan Not available 09/27/2022 10:05:13 10/07/2022 [id number] keep f/u nsuthan Not available 10/07 16:20:46 04/27/2023 [id number] A healthy lifestyle: care instructions nsuthan Not available 04/27/2023 10:08:53 f/u in 4 month nsuthan Not available 0 04/27/2023 10:21:53 01/12/2024 [id number] f/u in 6month nsuthan Not available 1 03/13/2023 09:49:43 Reason for Referral Patient Partner/dietitian Refer ral for Obesity Referring Physician: Angelica Lew, Internal Medicine, Encounter Date: 04/18/2022 Bariatric Surgery Referral f or Obesity Referring Physician: Angelica Lew Internal Medicine, Encounter Date: 04/18/2022 Results Created Date Observation Date Name Description Value Unit Range Abnormal Flag Note LastModifiedBy Organization Detail LastModifiedTime 07/26/1907/25/2022 LIPID PANEL cholesterol, total 155.6 mg/dL 140.0- 200.0 Not Available [facility] Department [address] [place], [address], 07/25/2022 20:08:50 07/26/1907/25/2022 LIPID PANEL triglyceride s 81 mg/dL <=150 Not Available [facility] Department [address] [place], [address], 07/25/2022 20:08:50 07/26/1907/25/2022 LIPID PANEL HDL cholesterol 42.4 mg/dL 40.0-1 00.0 Not Available [facility] Department [address] [place], [address], 07/25/2022 20:08:50 07/26/19 23 07/25/2022 LIPID PANEL VLDL cholesterol fernando 16.20 mg/dL 5.00-4 0.00 Not Available [facility] Department [address] [place], [address], 07/25/2022 20:08:50 07/26/19 23 07/25/2022 LIPID PANEL LDL chol calc ([facility]) 97.7 mg/dL 0.0-99 .0 Not Available [facility] Department [address] [place], [address], 07/25/2022 20:08:50 07/26/19 23 07/25/2022 COMP. METAB OLIC PANEL (14) glucose 94 mg/dL 65-99 ANION GP 15.0 mmol/ L N OSMOL 275.0 mOsM/ L N REFER ENCE RANGE : 275.0 -301. 0 Not Available [facility] Department [address] [place] [address], [address], 07/25/2022 20:08:50 07/26/19 23 07/25/2022 COMP. METAB OLIC PANEL (14) BUN 11 mg/dL 8-26 Not Available [facility] Department [address] [place] [address], [address], 07/25/2022 20:08:50 07/26/19 23 07/25/2022 COMP. METAB OLIC PANEL (14) creatinine 0.76 mg/dL 0.50-1 .40 Not Available [facility] Department [address] [place], [address], 07/25/2022 20:08:50 07/26/19 23 07/25/2022 COMP. METAB OLIC PANEL (14) eGFR 113 mL/mi n/1.7 3 >=60 Not Available [facility] Department [address] [place], [address], 07/25/2022 20:08:50 07/26/19 23 07/25/2022 COMP. METAB OLIC PANEL (14) BUN/creatini ne ratio 14.1 Not Available [facility] Department [address] [place], [address], 07/25/2022 20:08:50 07/26/19 23 07/25/2022 COMP. METAB OLIC PANEL (14) sodium 138.0 mmol/ L 136.0- 144.0 Not Available [facility] Department [address] [place] [address], [address], 07/25/2022 20:08:50 07/26/19 23 07/25/2022 COMP. METAB OLIC PANEL (14) potassium 4.4 mmol/ L 3.5-5. 3 Not Available [facility] Department [address] [place] [address], [address], 07/25/2022 20:08:50 07/26/19 23 07/25/2022 COMP. METAB OLIC PANEL (14) chloride 102 mmol/ l 101-11 1 Not Available [facility] Department [address] [place] [address], [address], 07/25/2022 20:08:50 07/26/19 23 07/25/2022 COMP. METAB OLIC PANEL (14) carbon dioxide, total 25.2 mmol/ L 21.0-3 2.0 Not Available [facility] Department [address] [place] [address], [address], 07/25/2022 20:08:50 07/26/19 23 07/25/2022 COMP. METAB OLIC PANEL (14) calcium 9.7 mg/dL 8.2-10 .0 Not Available [facility] Department [address] [place] [address], [address], 07/25/2022 20:08:50 07/26/19 23 07/25/2022 COMP. METAB OLIC PANEL (14) protein, total 7.4 g/dL 6.7-8. 2 Not Available [facility] Department [address] [place] [address], [address], 07/25/2022 20:08:50 07/26/19 23 07/25/2022 COMP. METAB OLIC PANEL (14) albumin 4.3 g/dL 3.5-5. 5 Not Available [facility] Department [address] [place] [address], [address], 07/25/2022 20:08:50 07/26/19 23 07/25/2022 COMP. METAB OLIC PANEL (14) globulin, total 3.1 g/dL 1.5-4. 5 Not Available [facility] Department [address] [place], [address], 07/25/2022 20:08:50 07/26/19 23 07/25/2022 COMP. METAB OLIC PANEL (14) A/G ratio 1.4 Not Available [facility] Department [address] [place], [address], 07/25/2022 20:08:50 07/26/19 23 07/25/2022 COMP. METAB OLIC PANEL (14) bilirubin, total 0.6 mg/dL 0.0-1. 2 Not Available [facility] Department [address] [place], [address], 07/25/2022 20:08:50 07/26/19 23 07/25/2022 COMP. METAB OLIC PANEL (14) alkaline phosphatase 62.0 IU/L 42.0-1 21.0 Not Available [facility] Department [address] [place], [address], 07/25/2022 20:08:50 07/26/19 23 07/25/2022 COMP. METAB OLIC PANEL (14) AST (SGOT) 25.9 U/L 10.0-4 2.0 Not Available [facility] Department [address] [place], [address], 07/25/2022 20:08:50 07/26/19 23 07/25/2022 COMP. METAB OLIC PANEL (14) ALT (SGPT) 37.3 U/L 10.0-6 0.0 Not Available [facility] Department [address] [place], [address], 07/25/2022 20:08:50 07/26/19 23 07/25/2022 CBC WITH DIFFE RENTI AL/PL ATELE T WBC 6.5 K/uL 3.4-10 .8 Not Available [facility] Department [address] [place], [address], 07/25/2022 20:08:51 07/26/19 23 07/25/2022 CBC WITH DIFFE RENTI AL/PL ATELE T RBC 4.5 M/uL 4.2-5. 4 Not Available [facility] Department [address] [place], [address], 07/25/2022 20:08:51 07/26/19 23 07/25/2022 CBC WITH DIFFE RENTI AL/PL ATELE T hemoglobin 14.2 g/dL 11.5-1 5.5 Not Available [facility] Department [address] [place], [address], 07/25/2022 20:08:51 07/26/19 23 07/25/2022 CBC WITH DIFFE RENTI AL/PL ATELE T hematocrit 43.2 % 36.0-4 8.0 Not Available [facility] Department [address] [place], [address], 07/25/2022 20:08:51 07/26/19 23 07/25/2022 CBC WITH DIFFE RENTI AL/PL ATELE T MCV 97 fL 80-95 above high normal Not Available [facility] Department [address] [place], [address], 07/25/2022 20:08:51 07/26/19 23 07/25/2022 CBC WITH DIFFE RENTI AL/PL ATELE T MCH 32 pg 27-32 Not Available [facility] Department [address] [place], [address], 07/25/2022 20:08:51 07/26/19 23 07/25/2022 CBC WITH DIFFE RENTI AL/PL ATELE T MCHC 33 g/dL 32-36 Not Available [facility] Department [address] [place], [address], 07/25/2022 20:08:51 07/26/19 23 07/25/2022 CBC WITH DIFFE RENTI AL/PL ATELE T RDW 12.3 % 11.5-1 4.5 Not Available [facility] Department [address] [place], [address], 07/25/2022 20:08:51 07/26/19 23 07/25/2022 CBC WITH DIFFE RENTI AL/PL ATELE T platelets 267 K/uL 155-37 9 MPV 12.8 FL 8.9-1 2.7 H Not Available [facility] Department [address] [place], [address], 07/25/2022 20:08:51 07/26/19 23 07/25/2022 CBC WITH DIFFE RENTI AL/PL ATELE T neutrophils 50.2 % 40.0-7 4.0 Not Available [facility] Department [address] [place], [address], 07/25/2022 20:08:51 07/26/19 23 07/25/2022 CBC WITH DIFFE RENTI AL/PL ATELE T lymphs 31.4 % 14.0-4 6.0 Not Available [facility] Department [address] [place], [address], 07/25/2022 20:08:51 07/26/19 23 07/25/2022 CBC WITH DIFFE RENTI AL/PL ATELE T monocytes 11.7 % 4.0-12 .0 Not Available [facility] Department [address] [place], [address], 07/25/2022 20:08:51 07/26/19 23 07/25/2022 CBC WITH DIFFE RENTI AL/PL ATELE T eos 5 % 0-5 Not Available [facility] Department [address] [place], [address], 07/25/2022 20:08:51 07/26/19 23 07/25/2022 CBC WITH DIFFE RENTI AL/PL ATELE T basos 1.1 % 0.0-1. 0 above high normal Not Available [facility] Department [address] [place], [address], 07/25/2022 20:08:51 07/26/19 23 07/25/2022 CBC WITH DIFFE RENTI AL/PL ATELE T neutrophils (absolute) 3.3 K/uL 1.4-7. 0 Not Available [facility] Department [address] [place], [address], 07/25/2022 20:08:51 07/26/19 23 07/25/2022 CBC WITH DIFFE RENTI AL/PL ATELE T lymphs (absolute) 2.0 K/uL 0.7-3. 1 Not Available [facility] Department [address] [place], [address], 07/25/2022 20:08:51 07/26/19 23 07/25/2022 CBC WITH DIFFE RENTI AL/PL ATELE T monocytes(ab solute) 0.8 K/uL 0.1-0. 9 Not Available [facility] Department [address] [place], [address], 07/25/2022 20:08:51 07/26/19 23 07/25/2022 CBC WITH DIFFE RENTI AL/PL ATELE T eos (absolute) 0.3 K/uL 0.0-0. 4 Not Available [facility] Department [address] [place], [address], 07/25/2022 20:08:51 07/26/19 23 07/25/2022 CBC WITH DIFFE RENTI AL/PL ATELE T baso (absolute) 0.1 K/uL 0.0-0. 3 Not Available [facility] Department [address] [place], [address], 07/25/2022 20:08:51 07/26/19 23 07/25/2022 CBC WITH DIFFE RENTI AL/PL ATELE T immature granulocytes 1.1 % Not Available [facility] Department [address] [place], [address], 07/25/2022 20:08:51 07/26/19 23 07/25/2022 CBC WITH DIFFE RENTI AL/PL ATELE T immature grans (abs) 0.1 K/uL Not Available [facility] [address] [facility], [place], [address], 07/25/2022 20:08:51 07/26/19 23 07/25/2022 CBC WITH DIFFE RENTI AL/PL ATELE T NRBC 0 % Not Available [facility] Department [address] [place], [address], 07/25/2022 20:08:51 07/26/19 23 07/26/2022 HEMOG LOBIN A1C hemoglobin A1C 5.3 % 4.8-5. 6 Predi abete s: 5.7 - 6.4 Diabe solo: >6.4 Glyce eliu contr ol for adult s with diabe solo: <7.0 Not Available [facility] ([facility]) [address] [facility], [place], [address], 07/26/2022 03:08:20 10/08/19 23 10/07/2022 rapid SARS CoV 2 Ag, QL IA, respi rator y speci men rapid SARS CoV 2 Ag, QL IA, respiratory specimen negati ve Not Available In-Office Order Internal Use Only DO Not Attach Compendium DO Not Attach Compendium, Do Not Delete/merge, [id number] 10/07/2022 12:48:27 03/08/20 24 03/08/2024 CBC W Auto Diffe renti al panel - Blood leukocytes [#/volume] in blood by automated count 14.53 text: 4.00 - 12.00 10(3)/ mcL high WBC 14.53 (H) 4.00 - 12.00 10(3) /mcL 03/08 3:22 AM [facility] Not Available Not Available 05/10/2024 17:35:37 03/08/20 24 03/08/2024 CBC W Auto Diffe renti al panel - Blood erythrocytes [#/volume] in blood by automated count 4.57 text: 3.80 - 5.30 10(6)/ mcL RBC 4.57 3.80 - 5.30 10(6) /mcL 03/08 3:22 AM [facility] Not Available Not Available 05/10/2024 17:35:37 03/08/20 24 03/08/2024 CBC W Auto Diffe renti al panel - Blood hemoglobin [mass/volume ] in blood 14.8 g/dL low: 12g/dL high: 15.8g/ dL HEMOG LOBIN (HGB) 14.8 12.0 - 15.8 g/dL 03/08 3:22 AM [facility] Not Available Not Available 05/10/2024 17:35:37 03/08/20 24 03/08/2024 CBC W Auto Diffe renti al panel - Blood hematocrit [volume fraction] of blood by automated count 42.9 % low: 36%hig h: 47% HEMAT OCRIT (HCT) 42.9 36.0 - 47.0 % 03/08 3:22 AM [facility] Not Available Not Available 05/10/2024 17:35:37 03/08/20 24 03/08/2024 CBC W Auto Diffe renti al panel - Blood MCV [entitic volume] by automated count 93.9 fL low: 82fLhi gh: 96fL MCV 93.9 82.0 - 96.0 fL 03/08 3:22 AM [facility] Not Available Not Available 05/10/2024 17:35:37 03/08/20 24 03/08/2024 CBC W Auto Diffe renti al panel - Blood MCH [entitic mass] by automated count 32.4 pg low: 26pghi gh: 34pg MCH 32.4 26.0 - 34.0 pg 03/08 3:22 AM [facility] Not Available Not Available 05/10/2024 17:35:37 03/08/20 24 03/08/2024 CBC W Auto Diffe renti al panel - Blood MCHC [mass/volume ] by automated count 34.5 g/dL low: 31g/dL high: 36g/dL MCHC 34.5 31.0 - 36.0 g/dL 03/08 3:22 AM [facility] Not Available Not Available 05/10/2024 17:35:37 03/08/20 24 03/08/2024 CBC W Auto Diffe renti al panel - Blood platelets [#/volume] in blood 278 text: 140 - 440 10(3)/ mcL PLATE LET COUNT 278 140 - 440 10(3) /mcL 03/08 3:22 AM [facility] Not Available Not Available 05/10/2024 17:35:37 03/08/20 24 03/08/2024 CBC W Auto Diffe renti al panel - Blood erythrocyte distribution width [ratio] by automated count 12.1 % low: 11.8%h igh: 15.5% RDW 12.1 11.8 - 15.5 % 03/08 3:22 AM [facility] Not Available Not Available 05/10/2024 17:35:37 03/08/20 24 03/08/2024 CBC W Auto Diffe renti al panel - Blood platelet mean volume [entitic volume] in blood by automated count 11.2 fL low: 9.7fLh igh: 12.4fL MPV 11.2 9.7 - 12.4 fL 03/08 3:22 AM [facility] Not Available Not Available 05/10/2024 17:35:37 03/08/20 24 03/08/2024 CBC W Auto Diffe renti al panel - Blood neutrophils/ 100 leukocytes in blood by automated count 88.6 % low: 47%hig h: 73% high NEUTR OPHIL S 88.6 (H) 47.0 - 73.0 % 03/08 3:22 AM [facility] Not Available Not Available 05/10/2024 17:35:37 03/08/20 24 03/08/2024 CBC W Auto Diffe renti al panel - Blood lymphocytes/ 100 leukocytes in blood by automated count 4.3 % low: 18%hig h: 42% low LYMPH OCYTE S 4.3 (L) 18.0 - 42.0 % 03/08 3:22 AM [facility] Not Available Not Available 05/10/2024 17:35:37 03/08/20 24 03/08/2024 CBC W Auto Diffe renti al panel - Blood monocytes/10 0 leukocytes in blood by automated count 6.5 % low: 4%high : 12% MONOC YTES 6.5 4.0 - 12.0 % 03/08 3:22 AM [facility] Not Available Not Available 05/10/2024 17:35:37 03/08/20 24 03/08/2024 CBC W Auto Diffe renti al panel - Blood eosinophils/ 100 leukocytes in blood by automated count 0.3 % low: 0%high : 5% EOSIN OPHIL S 0.3 0.0 - 5.0 % 03/08 3:22 AM [facility] Not Available Not Available 05/10/2024 17:35:37 03/08/20 24 03/08/2024 CBC W Auto Diffe renti al panel - Blood basophils/10 0 leukocytes in blood by automated count 0.3 % low: 0%high : 1% BASOP HILS 0.3 0.0 - 1.0 % 03/08 3:22 AM [facility] Not Available Not Available 05/10/2024 17:35:37 03/08/20 24 03/08/2024 CBC W Auto Diffe renti al panel - Blood neutrophils [#/volume] in blood by automated count 12.88 text: 1.60 - 7.70 10(3)/ mcL high ABSOL [place] NEUTR OPHIL S 12.88 (H) 1.60 - 7.70 10(3) /mcL 03/08 3:22 AM [facility] Not Available Not Available 05/10/2024 17:35:37 03/08/20 24 03/08/2024 CBC W Auto Diffe renti al panel - Blood lymphocytes [#/volume] in blood by automated count 0.63 text: 1.30 - 3.20 10(3)/ mcL low ABSOL [place] LYMPH OCYTE S 0.63 (L) 1.30 - 3.20 10(3) /mcL 03/08 3:22 AM [facility] Not Available Not Available 05/10/2024 17:35:37 03/08/20 24 03/08/2024 CBC W Auto Diffe renti al panel - Blood monocytes [#/volume] in blood by automated count 0.94 text: 0.20 - 1.00 10(3)/ mcL ABSOL [place] MONOC YTES 0.94 0.20 - 1.00 10(3) /mcL 03/08 3:22 AM [facility] Not Available Not Available 05/10/2024 17:35:37 03/08/20 24 03/08/2024 CBC W Auto Diffe renti al panel - Blood eosinophils [#/volume] in blood by automated count 0.04 text: 0.00 - 0.40 10(3)/ mcL ABSOL [place] EOSIN OPHIL 0.04 0.00 - 0.40 10(3) /mcL 03/08 3:22 AM [facility] Not Available Not Available 05/10/2024 17:35:37 03/08/20 24 03/08/2024 CBC W Auto Diffe renti al panel - Blood basophils [#/volume] in blood by automated count 0.04 text: 0.00 - 0.10 10(3)/ mcL ABSOL [place] BASOP HILS 0.04 0.00 - 0.10 10(3) /mcL 03/08 3:22 AM [facility] Not Available Not Available 05/10/2024 17:35:37 03/08/20 24 03/08/2024 CBC W Auto Diffe renti al panel - Blood nucleated erythrocytes /100 leukocytes [ratio] in blood 0 NRBC PER 100 WBC 0 03/08 3:22 AM [facility] Not Available Not Available 05/10/2024 17:35:37 03/08/20 24 03/08/2024 CBC W Auto Diffe renti al panel - Blood cotton classer review of results Yes RESUL TS ARE CONSI STENT WITH PERIP HERAL SMEAR REVIE W Yes 03/08 3:22 AM [facility] Not Available Not Available [...] 8 - 78 U/L 03/08 3:12 AM [facility] Not Available Not Available [...] - 145 mmol/ L 03/08 3:12 AM [facility] Not Available Not Available 05/10/2024 17:35:37 03/08/20 24 03/08/2024 Compr ehens sofie metab olic 1999 panel - Serum or Plasm a potassium [moles/volum e] in serum or plasma 3.7 mmol/ L low: 3.5mmo l/Lhig h: 5.1mmo l/L POTAS SIUM 3.7 3.5 - 5.1 mmol/ L 03/08 3:12 AM [facility] Not Available Not Available 05/10/2024 17:35:37 03/08/20 24 03/08/2024 Compr ehens sofie metab olic 2000 panel - Serum or Plasm a chloride [moles/volum e] in serum or plasma 107 mmol/ L low: 98mmol /Lhigh : 107mmo l/L CHLOR CH[facility]STOFER 107 98 - 107 mmol/ L 03/08 3:12 AM [facility] Not Available Not Available 05/10/2024 17:35:37 03/08/20 24 03/08/2024 Compr ehens sofie metab olic 1999 panel - Serum or Plasm a carbon dioxide, total [moles/volum e] in serum or plasma 19 mmol/ L low: 22mmol /Lhigh : 30mmol /L low CO2, VENOU S 19 (L) 22 - 30 mmol/ L 03/08 3:12 AM [facility] Not Available Not Available 05/10/2024 17:35:37 03/08/20 24 03/08/2024 Compr ehens sofie metab olic 1999 panel - Serum or Plasm a anion gap in serum or plasma 15.7 mmol/ L high: 18mmol /L ANION GAP 15.7 <18.0 mmol/ L 03/08 3:12 AM [facility] Not Available Not Available 05/10/2024 17:35:37 03/08/20 24 03/08/2024 Compr ehens sofie metab olic 2000 panel - Serum or Plasm a glucose [mass/volume ] in serum or plasma 139 mg/dL low: 70mg/d Lhigh: 99mg/d L high GLUCO SE 139 (H) 70 - 99 mg/dL 03/08 3:12 AM [facility] Not Available Not Available 05/10/2024 17:35:37 03/08/20 24 03/08/2024 Compr ehens sofie metab olic 1999 panel - Serum or Plasm a urea nitrogen [mass/volume ] in serum or plasma 12 mg/dL low: 5mg/dL high: 18mg/d L BUN 12 5 - 18 mg/dL 03/08 3:12 AM [facility] Not Available Not Available 05/10/2024 17:35:37 03/08/20 24 03/08/2024 Compr [employer] sofie metab olic 1999 panel - Serum or Plasm a creatinine [mass/volume ] in serum or plasma 0.93 mg/dL low: 0.6mg/ dLhigh : 1mg/dL CREAT ININE , BLOOD 0.93 0.60 - 1.00 mg/dL 03/08 3:12 AM [facility]ANG SA[facility] Not Available Not Available 05/10/2024 17:35:37 03/08/20 24 03/08/2024 Compr [employer] sofie metab olic 1999 panel - Serum or Plasm a urea nitrogen/cre atinine [mass ratio] in serum or plasma 13 text: 12 - 20 ratio BUN/C REATI NINE RATIO 13 12 - 20 ratio 03/08 3:12 AM [facility] Not Available Not Available 05/10/2024 17:35:37 03/08/20 24 03/08/2024 Compr ehens sofie metab olic 1999 panel - Serum or Plasm a protein [mass/volume ] in serum or plasma 8.2 g/dL low: 6.3g/d Lhigh: 8.2g/d L TOTAL PROTE IN 8.2 6.3 - 8.2 g/dL 03/08 3:12 AM [facility] Health As We [facility]T H C[facility]E R LAB Not Available Not Available 05/10/2024 17:35:37 03/08/20 24 03/08/2024 Compr ehens sofie metab olic 1999 panel - Serum or Plasm a albumin [mass/volume ] in serum or plasma 4.4 g/dL low: 3.5g/d Lhigh: 5g/dL ALBUM IN 4.4 3.5 - 5.0 g/dL 03/08 3:12 AM [facility] [employer] R LAB Not Available Not Available 05/10/2024 17:35:37 03/08/20 24 03/08/2024 Compr ehens sofie metab olic 1999 panel - Serum or Plasm a albumin/glob ulin [mass ratio] in serum or plasma 1.2 low: 1high: 2.2 A/G RATIO 1.2 1.0 - 2.2 03/08 3:12 AM [facility] [employer] [facility] Not Available Not Available 05/10/2024 17:35:37 03/08/20 24 03/08/2024 Compr ehens sofie metab olic 2000 panel - Serum or Plasm a calcium [mass/volume ] in serum or plasma 9.4 mg/dL low: 8.7mg/ dLhigh : 10.5mg /dL CALCI UM 9.4 8.7 - 10.5 mg/dL 03/08 3:12 AM [facility] [employer] R LAB Not Available Not Available 05/10/2024 17:35:37 03/08/20 24 03/08/2024 Compr ehens sofie metab olic 1999 panel - Serum or Plasm a bilirubin.to sahil [mass/volume ] in serum or plasma 0.5 mg/dL low: 0.2mg/ dLhigh : 1.2mg/ dL T BILI 0.5 0.2 - 1.2 mg/dL 03/08 3:12 AM [facility] [employer] R LAB Not Available Not Available 05/10/2024 17:35:37 03/08/20 24 03/08/2024 Compr ehens sofie metab olic 2000 panel - Serum or Plasm a aspartate aminotransfe rase [enzymatic activity/vol ume] in serum or plasma 28 U/L low: 5U/Lhi gh: 34U/L SGOT (AST) 28 5 - 34 U/L 03/08 3:12 AM [facility] Health As We AgeT [employer] CENTE R LAB Not Available Not Available 05/10/2024 17:35:37 03/08/20 24 03/08/2024 Compr ehens sofie metab olic 1999 panel - Serum or Plasm a alanine aminotransfe rase [enzymatic activity/vol ume] in serum or plasma 60 U/L low: 0U/Lhi gh: 55U/L high SGPT (ALT) 60 (H) 0 - 55 U/L 03/08 3:12 AM [facility] As [facility] Age[facility] [employer] [facility] LAB Not Available Not Available 05/10/2024 17:35:37 03/08/20 24 03/08/2024 Compr [employer]iva Biopharmaceuticalsens sofie metab olic 2000 panel - Serum or Plasm a alkaline phosphatase [enzymatic activity/vol ume] in serum or plasma 56 U/L low: 40U/Lh igh: 150U/L ALKAL INE PHOSP HATAS E 56 40 - 150 U/L 03/08 3:12 AM [facility] [employer] R LAB Not Available Not Available 05/10/2024 17:35:37 03/08/20 24 03/08/2024 Compr Aliva Biopharmaceuticalsens sofie metab olic 1999 panel - Serum or Plasm a glomerular filtration rate/1.73 sq M.predicted among non-blacks [volume rate/area] in serum, plasma or blood by creatinine-b ased formula (MDRD) low: 60 GFR, ESTIM ATED >60 >=60 03/08 3:12 AM [facility] Health As We AgeT [employer] CENTE R LAB Not Available Not Available 05/10/2024 17:35:37 03/08/20 24 03/08/2024 Compr ehens sofie metab olic 2000 panel - Serum or Plasm a glomerular filtration rate/1.73 sq M.predicted among blacks [volume rate/area] in serum, plasma or blood by creatinine-b ased formula (MDRD) low: 60 GFR, EST. AFRIC AN >60 >=60 03/08 3:12 AM [facility] As We AgeT [employer] CENTE R LAB Not Available Not Available 05/10/2024 17:35:37 03/08/20 24 03/08/2024 Compr ehens sofie metab olic 2000 panel - Serum or Plasm a glomerular filtration rate/1.73 sq M.predicted among non-blacks [volume rate/area] in serum, plasma or blood by creatinine-b ased formula (MDRD) low: 60 GFR, EST. NONAF RICAN >60 >=60 03/08 3:12 AM [facility] Health As We AgeT H CENTE R LAB Not Available Not [...] 0.7 - 1.9 ng/dL 03/27 2:50 PM [facility] [employer] LAB Not Available Not Available 05/10/2024 [...] 0.300 - 5.000 mIU/L 03/27 2:50 PM [facility] As We AgeT [employer] CENT[facility] R LAB Not Available Not Available 05/10/2024 17:35:37 03/27/19 25 03/27/2024 Thyro tropi n [Unit s/vol ume] in Serum or Plasm a interpretati on and review of laboratory results Normal Not Available Not Available 04/14 17:35:37 Result Notes None recorded. Problems Name Problem SNOMED Code Status Onset Date Resolution Date Notes Provider Name and Address Organization Details Recorded Time Pharyngiti s 874237122 Completed 08/03/2015 Laura mathias MD Attn: Accounting ,[address] [place], [place], [address] [place] [address] 6 11:10:44 Bronchitis 84995359 Completed 08/03/2015 Laura mathias MD Attn: Accounting ,[address] [place], [place], [address] [place] [address] 6 11:10:44 Hypothyroi dism 80418880 Active 2022 due to Hashim magi-se es endo Not Available [facility] 3 05:27:56 Polycystic ovary syndrome 784597729 Active 2022 Not Available [facility] 3 05:27:56 Infestatio n by Sarcoptes scabiei freedom hominis 158178295 Completed 08/03/2015 Laura mathias MD Attn: Accounting ,[address] [place], [place], [address] [place] [address] 6 11:10:44 Anxiety disorder 866024845 Active Not Available [facility] 3 05:27:56 Obesity 114292883 Active with FRANK Not Available [facility] 3 05:27:56 Tonsilliti s 19305383 Completed 08/03/2015 Laura mathias MD Attn: Accounting ,[address] [place], [place], [address] [place] [address] 6 11:10:44 Problem Notes None recorded. Procedures Surgical History Date Name Laterality Status Provider Name and Address Organization Details Recorded Time Other completed Stephany Escobedo [facility] [place] [address] 03/13 17:19:11 Imaging Results None recorded. Procedure Notes None recorded. Medical Equipment None Reported. Allergies Allergen ID Allergen Name Allergen Category Reaction Reaction Severity Criticality Documentation Date Start Date Code Code System Note Provider Name and Address Organization Details Recorded Time 499 Product containin g penicilli n (product) medicatio n hives Not available Not available 01/28/2014 [id number] SNOMED Not Available Not Available Not [...] Not Available Not Available Not Available ciprofloxa cayetano 500 mg tablet 04/18 completed Not Available [...] Not Available Not Available Not Available ergocalcif rosemray (vitamin D2) 1,250 mcg (50,000 unit) capsule [...] Updated DateTime 3 152.4 cm 50.1 kg/m2 836826. 16 g 98.3 [degF] 18 /min 64 [...] Updated DateTime 3 152.4 cm 45.8 kg/m2 575371. 05 g 81 /min 14 /min 98 [degF] 96 % 96 % 105 mm[Hg] 73 mm[Hg] Jeniffer Walker MA [facility] S[facility] 3 09:43:18 Date Recorded Body height Body mass index (BMI) Body weight Heart rate Respiratory rate Body temperature Oxygen saturation Oxygen saturation in Arterial blood by Pulse oximetry Systolic blood pressure Diastolic blood pressure Provider Name and Address Organization Details Last Updated DateTime 3 152.4 cm 45.1 kg/m2 873926. 84 g 106 /min 16 /min 99.1 [degF] 98 % 98 % 120 mm[Hg] 76 mm[Hg] Loretta Paniagua [facility] SI 3 12:28:21 Date Recorded Body height Body mass index (BMI) Body weight Heart rate Respiratory rate Body temperature Oxygen saturation Oxygen saturation in Arterial blood by Pulse oximetry Systolic blood pressure Diastolic blood pressure Provider Name and Address Organization Details Last Updated DateTime 4 152.4 cm 50.4 kg/m2 355796. 55 g 104 /min 14 /min 97.5 [degF] 98 % 98 % 109 mm[Hg] 75 mm[Hg] Jeniffer Walker MA [facility] SI 4 10:02:52 Date Recorded Body height Body mass index (BMI) Body weight Heart rate Respiratory rate Body temperature Oxygen saturation Oxygen saturation in Arterial blood by Pulse oximetry Systolic blood pressure Diastolic blood pressure Provider Name and Address Organization Details Last Updated DateTime 4 152.4 cm 51.7 kg/m2 309502. 54 g 90 /min 16 /min 97.7 [degF] 97 % 97 % 108 mm[Hg] 74 mm[Hg] Janet Smith MA [facility] [address] [address] 4 09:24:03 Social History Question Answer Notes LastModified by Organizat ion Details LastModified Time Tobacco Smoking Status Former Smoker quit 2021 Jeniffer Walker MA null, [facility] 04/27/2023 09:59:58 What Is Your [...] Have You Been Involved With Bullying? No [email or web address] Information not available 05/15/2014 What Is Your Level Of Caffeine Consumption? Occasional Coffee Information not available 09/27/2022 How Much Tobacco Do You Chew? None Information not available 03/23/2016 What Type Of Shade Cutter Do You Use? None [email or web address] Information not available 05/15/2014 In The 14 [...] Or The Highest Degree You Have Received? 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 Yes [email or web address] Information not available 05/15/2014 Are There Any Guns Present In Your Home? No [email or web address] Information not available 05/15/2014 What Is Your Home Situation? Mother 50/50 With Each Parent [email or web address] Information not available 05/15/2014 Do You Use Insect Repellent Routinely? Yes [email or web address] Information not available 05/15/2014 Live Alone Or With Others? With Others Just Boyfriend. Information not available 04/18/2022 Car Seat Type Or Seat Belt? Seat Belt Information not available 05/15/2014 Riding In Car Front Seat? Yes [email or web address] Information not available 05/15/2014 What Was The Date Of Your Most Recent Tobacco Screening? 01/12/2024 Information not available 01/12/2024 How Many Children Do You Have? 0 Information not available 03/23/2016 What Is Your Parents' Marital Status? Unmarried [email or web address] Information not available 05/15/2014 Performs Monthly Self-breast Exam? No. Information not available 04/18/2022 Pool Exposure No [email or web address] Informatio n not available 05/15/2014 Do You [...] Do You Have Any Siblings? 1 Brother [email or web address] Information not available 05/15/2014 Do You Have Smoke And Carbon Monoxide Detectors In Your Home? Yes [email or web address] Information not available 05/15/2014 At What Age Did You Start Smoking Tobacco? 13 Information not available 03/23/2016 Are You Passively Exposed To Smoke? Yes Mom Smokes [email or web address] Information not available 05/15/2014 Do You Or Have You Ever Used Smokeless Tobacco? Never Used Smokeless Tobacco Information not available 09/27/2022 How Much Tobacco Do You Smoke? No Information not available 04/18/2022 What Types Of Sporting Activities Do You Participate In? None [email or web address] Information not available 05/15/2014 General Stress Level Low Information not available 02/26/2018 Do You Feel Stressed (tense, Restless, Nervous, Or Anxious, Or Unable To Sleep At Night)? [id number] Information not available 04/18/2022 Do You Use Any Illicit Or Recreational Drugs? No Information not available 04/18/2022 Do You Use Sunscreen Routinely? Yes [email or web address] Information not available 05/15/2014 Has Tobacco Cessation [...] 17:15:20 Maternal Grandmother Malignant tumor of lung [email or web address] Not available 10/07 12:25:56 Maternal Aunt Malignant tumor of cervix [place] Not available 2016 17:15:20 Maternal Aunt Malignant tumor of lung [email or web address] Not available 02/10 12:35:03 Maternal Aunt Malignant tumor of lung [email or web address] Not available 02/10 12:35:03 Unspecified Relation Malignant tumor of colon cousin Not available 02/10 12:34:39 Unspecified Relation Malignant tumor of colon matern al great grand father [email or web address] Not available 02/26/2018 12:34:39 Paternal Aunt Malignant neoplasm of brain [email or web address] Not available 02/10 12:35:30 Medical History Condition [...] N Anemia N Constipation Y Heart Attack (HI) N Diabetes N Ovarian Cancer N Bedwetting [...] Time meningococcal MCV4P 7 completed Not Available [facility] 03/30/2019 02:51:00 Hep B, unspecified formulation 9 completed Not Available [facility] 11/01/2022 15:27:23 IPV 9 completed Not Available [facility] 11/01/2022 15:27:23 Hib, unspecified formulation 0 completed Not Available [facility] 11/01/2022 15:27:22 MMR 4 completed Not Available [facility] 11/01/2022 15:27:23 DTaP, unspecified formulation 0 completed Not Available [facility] 11/01/2022 15:27:23 IPV 9 completed Not Available [facility] 11/01/2022 15:27:23 DTaP, unspecified formulation 9 completed Not Available [facility] 11/01/2022 15:27:23 meningococcal MCV4, unspecified formulation 0 completed Not Available [facility] 11/01/2022 15:27:23 DTaP, unspecified formulation 9 completed Not Available [facility] 11/01/2022 15:27:23 IPV 0 completed Not Available [facility] 11/01/2022 15:27:23 MMR 1 completed Not Available [facility] 11/01/2022 15:27:23 Hep B, unspecified formulation 0 completed Not Available [facility] 11/01/2022 15:27:23 Tdap 9 completed Not Available [facility] 11/01/2022 15:27:23 Hib, unspecified formulation 9 completed Not Available [facility] 11/01/2022 15:27:23 DTaP, unspecified formulation 0 completed Not Available [facility] 11/01/2022 15:27:23 Hep A, unspecified formulation 5 completed Not Available [facility] 11/01/2022 15:27:23 Hep B, unspecified formulation 9 completed Not Available [facility] 11/01/2022 15:27:23 HPV, unspecified formulation 2 completed Not Available [facility] 11/01/2022 15:27:23 HPV, unspecified formulation 3 completed Not Available [facility] 11/01/2022 15:27:23 pneumococcal conjugate PCV 7 1 completed Not Available [facility] 11/01/2022 15:27:23 Hib, unspecified formulation 0 completed Not Available [facility] 11/01/2022 15:27:23 DTaP, unspecified formulation 4 completed Not Available [facility] 11/01/2022 15:27:23 IPV 4 completed Not Available [facility] 11/01/2022 15:27:23 pneumococcal conjugate PCV 7 1 completed Not Available [facility] 11/01/2022 15:27:23 Hep A, unspecified formulation 7 completed Not Available [facility] 11/01/2022 15:27:23 Hib, unspecified formulation 9 completed Not Available [facility] 11/01/2022 15:27:23 Tdap 3 completed Kyle Lew MD Attn: Accounting,[address] [place], [address], [facility] 09/27/2022 14:09:51 Past Encounters Encounter ID Performer Location Encounter Start Date Encounter Closed Date Diagnosis/Indication Diagnosis SNOMED-CT Code Diagnosis ICD10 Code Diagnosis Note [id number] [facility] [address] [place] [address] 01/28/2014 15:07:13 02/03/2014 18:14:38 Bronchitis 91940590 [id number] [facility] ([facility] [address] [place] [address] 04/14/2014 14:56:22 04/14/2014 16:44:26 Pharyngitis 780099262 [id number] Yaquelin James (Peds) [address] [place] [address] 05/15/2014 11:24:56 05/15/2014 14:42:15 Gastritis 0297113 [id number] BEL[facility] Moon (Peds) [address] [place] [address] 06/23/2014 16:14:11 06/23/2014 16:55:00 Infestation by Sarcoptes scabiei freedom hominis 062007475 [id number] BELIA Almaraz (Peds) [address] [place] [address] 01/01/2015 13:52:57 01/01/2015 14:58:34 Anxiety disorder 016378744 F41.1 Obesity 051613838 E66.3 [id number] Too James (Peds) [address] [place] [address] 01/12/2015 11:24:55 01/12/2015 12:42:26 Allergic reaction 826825667 T78.40XA [id number] Too Blasn (Peds) [address] [place] [address] 01/22/2015 10:14:48 01/22/2015 11:00:13 Anxiety disorder 284885488 F41.1 [id number] Too James (Peds) [address] [place] [address] 02/20/2015 11:38:26 02/20/2015 12:48:48 Anxiety disorder 284850438 F41.1 [id number] Too Pete James (Peds) [address] [place] [address] 04/14/2015 11:08:24 04/14/2015 12:11:40 Tonsillitis 68146714 J03.90 [id number] Too Blasn (Peds) [address] [place] [address] 05/13/2015 15:14:27 05/14/2015 13:49:50 Anxiety disorder 052777356 F41.1 [id number] Laura mathias MD Jacob (Peds) [address] [place] [address] 08/03/2015 10:41:19 08/03/2015 11:48:25 Streptococcal sore throat 61532972 J02.0 [id number] MD Jacob Scott (Peds) [address] [place] [address] 12/29/2015 15:28:31 12/30/2015 13:50:42 Cellulitis of skin 063791826 L03.90 Warm compresses 3x daily. [id number] [facility] (SMOKING TOBACCO PACKER HAND) [address] [place] [address] 03/23/2016 16:48:58 03/29/2016 12:43:18 Venereal disease screening 569415491 Z11.3 RTO one week for results. [facility] care management 659158201 Z30.9 control options discussed. Pt. advised she need to quit smoking before getting on estrogen-c ontaining control. Pt. does not think she can quit smoking. Other options discussed including the Copper IUD, the Mirnea IUD, the Depo shot, and the Nexplanon. Pt. to think about it. Pamphlets given. RTO with a decision. [id number] Priscilla Murillo (SMOKING TOBACCO PACKER HAND) [address] [place] [address] 04/06/2016 14:02:51 04/06/2016 16:54:39 High risk sexual behavior 294824575 Z72.51 Safer sex practices discussed. Sample condoms given. RTO one week for results. [id number] Priscilla Murillo (SMOKING TOBACCO PACKER HAND) [address] [place] [address] 04/13/2016 16:25:04 04/14/2016 10:47:05 Bacterial vaginosis 666360148 N76.0 Diagnosis d/w pt. Rx sent to pharmacy. Instructio ns discussed. Oral contr aceptive prescribed 664663886 Z30.011 Pt. is down to one cig/day and plans on quitting. Will given OCP for one month and re-assess. If still smoking will have to use another form of control. Pt. expressed understand ing and agreement. Venereal d isease screening 315707638 Z11.3 Vaginal culture was negative for gonorrhea, chlamydia, and trichomona s, dwp. STD panel was also completely negative. Individual test results dwp. [id number] MD Jacob Scott (Peds) [address] [place] [address] 06/16/2016 11:03:04 06/16/2016 17:21:50 Streptococcal sore throat 77097456 J02.0 Referred otalgia 4981052 8 H92.09 Tylenol/Mo madai as needed for pain [id number] MD Jacob Scott (Peds) [address] [place] [address] 07/26/2016 11:13:04 07/27/2016 14:44:06 Redness of throat 767190706 J02.9 Acute bronchitis 8570024 2 J20.9 QUIT SMOKING Nonvenomou s insect bite of multiple sites 653549026 W57.XXXA Continue OTC ointment. Use bug spray next time. Also sunscreen Acute sinusitis 33486133 J01.90 [id number] MD Jacob Scott (Peds) [address] [place] [address] 10/03/2016 15:47:49 10/13/2016 09:50:50 Well child 656921575 Z00.129 Overweight in childhood 369268572 E66.3 Redness of throat 268328 008 J02.9 Nonulcer dyspepsia 24693 07 K30 Avoid spicy food, no soda Mood disorder 11338233 F 39 [id number] Priscilla An Lidia (SMOKING TOBACCO PACKER HAND) [address] [place] [address] 02/26/2018 11:49:58 02/27/2018 13:51:09 Venereal disease screening 472641222 Z11.3 RTO one week for results. [id number] MD Jacob Rosas [address] [facility] [address] [place] [address] 01/04/2019 09:26:26 01/07/2019 09:55:47 Family planning surveillance 281887838 Z30.09 Contracept ion care management 033820800 Z30.9 Discussed contracept sofie optionsPt desires Mirena IUDRTC for insertion of device High risk sexual behavior 378909865 Z72.51 [id number] MD Lidia Parry (Adult Med) [address] [place] [address] 04/18/2022 09:47:28 04/25/2022 11:44:30 Adult health examination 225637593 Z00.00 healthy diet and exercise discussed with pt Obesity 351292338 E66.9 with fatty liver -pt wants to go to wt loss clinic- t and exercise discussed with pt Hypothyroidism 92344043 E03.9 - pt is on thyroid pill per endo - Polycystic ovary syndrome 942972626 E28.2 -pt sees [facility] and pt is on metformine [id number] MD Matilde Parryhalto (Adult Med) [address] [place] [address] 09/27/2022 08:51:07 09/28/2022 11:29:15 Administration of diphtheria, pertussis, and tetanus vaccine 893214314 Z23 Hypothyroidism 28556894 E03.9 - pt is on thyroid pill per yvrose - Obesity 344288067 E66.9 with fatty liver -pt goes to wt loss clinic- pt is on glp-1-diet and exercise discussed with pt Polycystic ovary syndrome 404137869 E28.2 -pt sees [facility] Packer and pt is off of metformine [id number] [facility] [address] [place] [address] 10/07/2022 11:55:30 10/10/2022 10:37:43 Upper respiratory infection 44924356 J06.9 -viral syndrome -supportiv e care- keep good hydration [id number] [facility] [address] [place] [address] 04/27/2023 09:34:23 05/03/2023 15:17:07 Obesity 713717172 E66.9 with fatty liver -pt goes to wt loss clinic - pt took break for 3 months and going back again per pt- pt is on glp-1-diet and exercise discussed with pt Hypothyroidism 00539680 E03.9 - pt is on thyroid pill per yvrose - Polycystic ovary syndrome 878090865 E28.2 -pt sees [facility] Packer and pt to go back on metformine [id number] MD [facility] [address] [place] [address] 01/12/2024 09:17:37 01/15/2024 10:08:12 Hypothyroidism 11476386 E03.9 - pt is on thyroid pill per yvrose - Obesity 005105681 E66.9 with fatty liver -pt goes to wt loss clinic - pt took break for 3 months and going back again per pt-diet and exercise discussed with ptpt is planning to have wt loss sxpt is going get new insurance and will try glp-1 Polycystic ovary syndrome 349914064 E28.2 -pt sees [facility] Packer and pt did not tolerate metformin Health Concerns Section Related Observation LastModified by Organization [employer]ian nation LastModified Time None Recorded Concern Status LastModified by Organization Details LastModified Time None Recorded Advance Directives Directive None Recorded Payers Encounter Date Sequence Insurance Name Policy Number Policy Stoner Covered Member ID Stoner Member ID Guarantor Name 04/18/2022 1 *SELF PAY* Naga Avina 04/18/2022 1 [facility] ON OR AFTER 09/10/20 (MEDICAID REPLACEMENT - HMO) [facility] [id number] [facility] 09/27/2022 1 *SELF PAY* Naga Avina 09/27/2022 1 [facility] ON OR AFTER 09/10/20 (MEDICAID REPLACEMENT - HMO) [facility] [id number] [facility] 10/07/2022 1 *SELF PAY* Naga Avina 10/07/2022 1 [facility] ON OR AFTER 09/10/20 (MEDICAID REPLACEMENT - HMO) [facility] [id number] [facility] 04/27/2023 1 *SELF PAY* Naga Avina 01/12/2024 1 [facility] ON OR AFTER 09/10/20 (MEDICAID REPLACEMENT - HMO) [facility] [id number] [facility] Notes Date Note Type Note [...] prescribed Kyle Lew MD Attn: Accounting,[address] [place], [address], [place] [facility] 04/18/2022 16:00:59 09/27/2022 text/html ObesityReported bypatient.Diagnosis Summary:diagnosis: obesity; additional diagnosis: PCOS Context:no oral steroids Associated Symptoms:no depression;hypothyroid ism Co-morbidities:metabol ic syndrome;polycystic ovary syndrome pt with fatty liver /pcos and hypothyroidism is here for f/upt sees endo for low thyroid , taking med as prescribed Kyle Lew MD Attn: Accounting,[address] [facility] [place], [address], [facility] 09/27/2022 14:10:51 10/07/2022 text/html Upper Respirator y SymptomsReported bypatient.Location:[facility] Quality:congested Severity:moderate; 3 days Context:no sick contacts; non-smoker Associated Symptoms:no fever;sore throat;diarrhea Kyle Lew MD Attn: Accounting,[address] [facility], [place], [address], [facility] 10/07/2022 16:21:20 04/27/2023 text/html ObesityReported bypatient.Diagnosis Summary:diagnosis: obesity; additional diagnosis: PCOS Context:no oral steroids Associated Symptoms:no depression;hypothyroid ism Co-morbidities:metabol ic syndrome;polycystic ovary syndrome pt with fatty liver /pcos and hypothyroidism is here for f/upt sees endo for low thyroid , taking med as prescribed Kyle Lew MD Attn: Accounting,[address] [place], [address], [facility] 04/27/2023 10:23:46 01/12/2024 text/html ObesityReported bypatient.Diagnosis Summary:diagnosis: obesity; additional diagnosis: PCOS Context:no oral steroids Associated Symptoms:no depression;hypothyroid ism Co-morbidities:metabol ic syndrome;polycystic ovary syndrome pt with fatty liver /pcos and hypothyroidism is here for f/upt sees endo for low thyroid , taking med as prescribed Kyle Lew MD Attn: Accounting,[address] [place], [address], [facility] 01/12/2024 13:06:30 OBGyn Episode No OBEpisode recorded.
--- OUTSIDE RECORDS SUMMARY | 2024-06-28 13:14 | XMS_ITS | Clinical Summary ---
Author Organization [facility] Address [address] [place] [address] Phone Care Team Providers Care Station Installer And Repairer Name Role Phone Karol Holder MD Unavailable Maxim Ding MD Primary Care Provider Allergies Active Allergy Reactions Criticality Noted Date Comments Morphine Rash 11/09/2015 Penicillins Shortness of Breath 11/09/2015 Medications ursodiol (ACTIGALL) 300 MG Capsule Take 300 mg by mouth 2 times daily. 5 Active levothyroxine (SYNTHROID) 100 MCG Tablet Take 1 Tablet by mouth daily. 90 Tablet 1 5 Active levothyroxine (SYNTHROID) 88 MCG Tablet Take 1 Tablet by mouth daily. 90 Tablet 1 5 06/27/19 25 Discontinu ed(Reorder ) Encounters Date Type Department Care Team Description 06/26/2024 9:45 AM CDT Office Visit [facility] - Endocrinology 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) Discharge Disposition: Discharged to home or Selfcare 06/26/2024 Travel from Last 3 Months Immunizations Immunization Administration Dates Next Due [id number] fernando MCV4, Unspecif ied Formulation 10/03/2016,10/27/2009 DTAP VACCINE 03/24/1999,01/25/1999,1998 DTAP VACCINE, UNSPECIFIED FORMULATION 09/09/2003 ,01/04/2000 Hepatitis A Vaccine,unspecif ied Formulation 04/14/2006,02/14/2005 Hepatitis B Vaccine 03/24/1999,1998 Hepatitis B Vaccine, Pediatric/adolescent 03/24/1999,1998,1998 Hepatitis B Vaccine,unspecif ied Formulation 1998 Hib Vaccine,unspecified Formulation 12/12,03/24/1999,01/25/1999,11/12 Hpv, Unspecified Formulation 11/02/2012,10/25/19 Human Papillomavirus Vaccine (HPV), quadrivalent 11/02/2012 Inactivated Polio Vaccine 09/09/2003,02/2000,01/25/1999,11/12 Influenza Vaccine 07/11/2013 MMR Vaccine 09/09/2003,10/03/2000 Meningococcal Vaccine 10/03/2016 Pneumococcal Vaccine Peds - [...] Sign Reading Time Taken Comments Blood Pressure 118/68 06/26/2024 9:43 AM CDT Pulse 102 06/26/2024 9:43 AM CDT Temperature 36.7 C (98 F) 06/26/2024 9:43 AM CDT Respiratory Rate 22 06/26/2024 9:43 AM CDT Oxygen Saturation 98% 06/26/2024 9:43 AM CDT Inhaled Oxygen Concentration - - Weight 120.6 kg (265 lb 12.8 oz) 06/26/2024 9:43 AM CDT Height 152.4 cm (5') 03/08/2024 2:12 AM SUPERVISOR MACHINE WORKERS Body Mass Index 51.91 03/08/2024 2:12 AM SUPERVISOR MACHINE WORKERS Plan of Treatment Upcoming Encounters Date Type Department Care Team (Late st Contact Info) Description 09/26/2024 10:00 AM CDT Office Visit [facility] - Endocrinology - [place] [address] [place] [address] Karol Holder MD [address] [address] Health Maintenance Due Date Last Done Comments Pap Smear 09/17/2019 SARS-COV-2 Immunization ( season) 2023 Influenza Immunization (Season Ended) 2024 07/11/2013 Hepatitis C Virus (HCV) Screening 04/09/2025 04/09/2024, 04/09/2024 DTaP/Tdap/Td Immunization (9 - Td or Tdap) [...] on patient's age to complete this topic Insurance MEDICAID [place] [facility] MEDICAID [place] [facility] Care Teams Station Installer And Repairer Relationship Specialty Start Date End Date Maxim Ding MD 4 [facility] [address] [place] [address] PCP - General Internal Medicine 11/03/22 Karol Holder MD #2 [facility] [address] [place] [address] Consulting Physician Endocrinology 08/03/21
--- NOTE | 2024-06-28 13:15 | ECG_ITS ---
Test Date: 2024-06-28 13:24:52 Measurements Intervals [place] Rate: 95 P: 16 AL: 142 QRS: 14 QRSD: 68 T: 0 QT: 312 QTc: 393 Interpretive Statements SINUS RHYTHM BORDERLINE T WAVE ABNORMALITY- INFERIOR LEADS BASELINE ARTIFACT- II, III, AVF BORDERLINE ECG No previous ECG available for comparison Electronically Signed On 06-28-2024 14:38:02 CDT by Chris Michaels D.O.
[2024-06-28 14:31] VITALS: PULSE 80
[2024-06-28 15:00] VITALS: BP 123/71; PULSE 86; RESP 19; O2SAT 99
--- OUTSIDE RECORDS SUMMARY | 2024-06-28 15:07 | XMS_ITS ---
Author Organization [facility] Address [address] [place] [address] Phone Care Team Providers Care Transport Aide Name Role Phone Karol Holder MD Unavailable Maxim Ding MD Primary Care Provider [facility] Status:Enrolled (Active) Start date:04/10/2024 Enrollment date:04/10/2024 Related social drivers of health:Intimate Partner Violence, Social Connections, Alcohol Use, Tobacco Use, Financial Resource Strain,Depression, Stress, Physical Activity, Food Insecurity, Transportation Needs, Housing Stability, Utilities Continued Care and Services Coordination
--- OUTSIDE RECORDS SUMMARY | 2024-06-28 15:07 | XMS_ITS | Clinical Summary ---
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) Discharge Disposition: Discharged to home or Selfcare 06/26/2024 Travel from Last 3 Months Immunizations Immunization Administration Dates Next Due [id number] fernando MCV4, Unspecif ied Formulation 10/03/2016,10/27/2009 DTAP [...] Height 152.4 cm (5') 03/08/2024 2:12 AM DIAGNOSTIC TECH Body Mass Index 51.91 03/08/2024 2:12 AM DIAGNOSTIC TECH Plan of Treatment Upcoming Encounters Date Type Department Care Team (Late st Contact Info) Description 09/26/2024 10:00 AM CDT Office Visit [facility] - Endocrinology - [place] [address] [place] [address] Karol Holder MD #[address] [address] Health Maintenance Due Date Last [...] age to complete this topic Insurance MEDICAID [place] AETNA [facility] * Guarantor: Sade Miller Account Type Relation to Patient Date of Phone Billing Address Personal/Family Mother [phone] [address] [place]ICAID [place] [facility] Care Teams Seat Cover Cutter Relationship Specialty Start Date End Date Maxim Ding MD 4 [facility] [address] [place] [address] PCP - General Internal Medicine 11/03/22 Karol Holder MD [address] [facility] [address] [place] [address] Consulting Physician Endocrinology 08/03/21
[2024-06-28 15:10] LABS: Basophils Percent Auto 0.4 % (0.2-1.2); Eosinophils Absolute Auto 0.2 K/mm3 (0-0.3); Eosinophils Percent Auto 2.2 % (0-4.4); Hemoglobin 12.6 g/dL (12.0-15.0); Immature Granulocyte Absolute 0.04 K/mm3 (0.00-0.031); Immature Granulocyte Percent A 0.4 % (0-0.5); Lymphocytes Absolute Auto 1.69 K/mm3 (0.9-3.2); Lymphocytes Percent Auto 16.5 % (18.3-44.2); Mean Corpuscular HGB Conc 33.2 g/dl (32-36); Mean Corpuscular Hemoglobin 32.6 pg (26-34); Mean Corpuscular Volume 98.2 fl (80-100); Mean Platelet Volume 12.2 fl (7.4-10.4); Monocytes Percent Auto 9.8 % (2.6-8.5); Neutrophils Absolute Auto 7.2 K/mm3 (1.3-6.7); Neutrophils Percent Auto 70.7 % (45.5-73.1); Platelet Count Result 229 k/mm3 (150-375); Red Blood Count 3.87 M/mm3 (4.2-5.4); Red Cell Distribution Width 12.5 % (11.5-14.5); White Blood Count 10.2 K/mm3 (4.5-10.0)
[2024-06-28 15:25] LABS: Alanine Aminotransferase 40 U/L (6-35); Albumin Level 3.8 g/dL (3.5-5.1); Alkaline Phosphatase 50 U/L (38-126); Anion Gap 10 mmol/L (4-12); Aspartate Amino Transferase 31 U/L (14-36); Bilirubin,Total 0.2 mg/dL (0.2-1.3); Blood Urea Nitrogen 10 mg/dL (7-17); Calcium 9.3 mg/dL (8.4-10.2); Carbon Dioxide 22 mmol/L (22-30); Chloride 104 mmol/L (98-107); Estimated CRCL calculation 137 ml/min; Estimated Glomerular Filt Rate > 60; Glucose 77 mg/dL (65-110); Potassium 3.7 mmol/L (3.4-5.0); Sodium 136 mmol/L (137-145)
--- NOTE | 2024-06-28 15:25 | ED_ITS ---
HPI - Arrhythmia/Palpitations General Chief Complaint: Arrhythmia/Palpitations Stated Complaint: palpatations Time Seen by Provider: 06/28/24 14:56 Source: patient Mode of arrival: ambulatory Limitations: no limitations History of Present Illness HPI narrative: This is a 23-year-old female who is approximately 23 weeks and following with Dr. Sauer who presents to the ED for chief complaint palpitations intermittently throughout her and worse today. Patient states that she will get associated lightheadedness with palpitations. States that sometimes they happen while she is lying flat and sometimes they happen with exertion. No specific pattern. She has recently finished Holter monitor placement and is awaiting results for this. Denies chest pain, abdominal pain, nausea, vomiting, syncope no numbness, weakness. Related Data Allergies Allergy/AdvReac Type Severity Reaction Status Date / Time morphine Allergy Severe Difficulty Verified 06/28/24 15:00 Breathing Penicillins Allergy Intermediate Hives Verified 06/28/24 15:00 Review of Systems 2 Review of Systems: All systems as dictated in HPI [facility] Past Medical History Medical History (Updated 06/28/24 @ 16:05 by Lyle Knutson PA-C) Anxiety Surgical History Surgical History (Updated 02/24/24 @ 13:05 by Spring Clarke NP) History of facial surgery skull and facial reconstruction fro fracture nose and orbit and skull Family History Family History Other Diabetes mellitus Hypertension Social History Social History (Updated 02/24/24 @ 13:07 by Spring Clarke NP) Smoking packs per day: 0.4 Smoking cigarettes per day: 8.0 Smoking status: Former smoker Additional smoking assessment comments: nicotine free from vape 2 months reported 02/22/2024 Alcohol intake: current Gender identity (if verbalized by the patient): Female Exam 2 Narrative: GENERAL: Well-appearing, well-nourished, and in no acute distress. HEAD: Normocephalic, atraumatic. EYES: PERRLA and EOMI. ENT: Nares clear, no rhinorrhea or epistaxis. Mucous membranes moist. Oropharynx without tonsillar hypertrophy exudate or other lesions. NECK: Supple. No adenopathy or masses. CHEST: No respiratory distress. Clear to auscultation. No wheezes rales or rhonchi HEART: Regular rate and rhythm. No murmur heard. Normal peripheral pulses. ABDOMEN: Gravid abdomen. Soft, nontender, nondistended, normal active bowel sounds. MSK: Normal range of motion. No edema. SKIN: Warm, dry, no rash. NEURO: Alert and oriented x4. No focal deficits. PSYCH: Normal mood and affect. Course Vital Signs Vital signs: Vital Signs Pulse Rate 80 06/28/24 14:31 Pulse Rate 86 06/28/24 15:00 Respiratory Rate 19 06/28/24 15:00 Blood Pressure 123/71 06/28/24 15:00 Pulse Oximetry 99 06/28/24 15:00 MDM - Arrhythmia/Palpitations MDM Narrative Medical decision making narrative: This is a 23-year-old female who presents to the ED for chief complaint of palpitations ongoing throughout her . She is approximately 23 weeks . Vitals are normal. Exam remarkable for the above. EKG shows sinus rhythm with no arrhythmia. With Ms. Detected on security monitor today. Lab work is overall unremarkable including a negative troponin and negative BNP. She is undergoing workup with Holter monitor outpatient and I encouraged her to continue to follow-up on this. Patient will be discharged in stable condition. Supportive measures discussed and return precautions given. Patient is understanding and agreeable with plan for discharge with PCP follow-up. Lab Data 06/28/24 15:02 06/28/24 15:02 Labs: Lab Results 06/28/24 Range/Units 15:02 WBC 10.2 H (4.5-10.0) K/mm3 RBC 3.87 L (4.2-5.4) M/mm3 Hgb 12.6 (12.0-15.0) g/dL Hct 38.0 (37.0-47.0) % MCV 98.2 (80-100) fl MCH 32.6 (26-34) pg MCHC 33.2 (32-36) g/dl RDW 12.5 (11.5-14.5) % Plt Count 229 (150-375) k/mm3 MPV 12.2 H (7.4-10.4) fl Immature Gran % (Auto) 0.4 (0-0.5) % Neut % (Auto) 70.7 (45.5-73.1) % Lymph % (Auto) 16.5 L (18.3-44.2) % [place] % (Auto) 9.8 H (2.6-8.5) % Eos % (Auto) 2.2 (0-4.4) % Baso % (Auto) 0.4 (0.2-1.2) % Lymph # (Auto) 1.69 (0.9-3.2) K/mm3 Traverse # (Auto) 1.0 H (0.1-0.6) K/mm3 Eos # (Auto) 0.2 (0-0.3) K/mm3 Baso # (Auto) 0.0 (0.0-0.1) K/mm3 Abs Immat Gran (auto) 0.04 H (0.00-0.031) K/mm3 Absolute Neuts (auto) 7.2 H (1.3-6.7) K/mm3 Absolute Nucleated RBC 0.000 (0.0-0.012) K/mm3 Nucleated RBC % 0.0 (0.0-0.2) % Sodium 136 L (137-145) mmol/L Potassium 3.7 (3.4-5.0) mmol/L Chloride 104 (98-107) mmol/L Carbon Dioxide 22 (22-30) mmol/L Anion Gap 10 (4-12) mmol/L BUN 10 (7-17) mg/dL Creatinine 0.64 L (0.7-1.0) mg/dL Estim Creat Clear Calc 137 ml/min Estimated GFR > 60 (59 - ) Glucose 77 (65-110) mg/dL Calcium 9.3 (8.4-10.2) mg/dL Total Bilirubin 0.2 (0.2-1.3) mg/dL AST 31 (14-36) U/L ALT 40 H (6-35) U/L Alkaline Phosphatase 50 (38-126) U/L Troponin I < 0.012 (0.000-0.034) ng/mL NT-Pro-B Natriuret Pep 21 (19.9-100) pg/mL Total Protein 7.0 (6.3-8.2) g/dL Albumin 3.8 (3.5-5.1) g/dL Discharge Plan Discharge Clinical Impression: Palpitations Patient Disposition: Home Condition: Stable Instructions: Antibiotic Form, Heart Palpitations (ED) Additional Instructions: Exam and workup today are reassuring overall. Please continue to follow-up with your OB and on the Holter monitor. Symptoms may be due to something called PVCs but it is hard to tell as we do not have any evidence of arrhythmia today. If you have any new or worsening symptoms please return to the ER for further evaluation. Patient Language: Lithuanian Prescriptions: No Action methylprednisolone [Medrol (Jamar)] 4 mg tablets,dose pack See Rx Instructions .ROUTE .COMPLEX Qty: 21 0RF Rx Instructions: orally per package directions ibuprofen 800 mg tablet 800 mg PO TID PRN (Reason: pain) Qty: 20 0RF azithromycin 500 mg tablet 500 mg PO DAILY 5 Days Qty: 5 0RF methylprednisolone [Medrol (Jamar)] 4 mg tablets,dose pack See Rx Instructions .ROUTE .COMPLEX Qty: 21 0RF Rx Instructions: orally per package directions Follow-up/Referrals: Vicky Spears RN [Primary Care Provider] - Time of Disposition: 16:05
[2024-06-28 15:35] LABS: Troponin I < 0.012 ng/mL (0.000-0.034)
[2024-06-28 15:53] LABS: NT Pro B Type Natriuretic Pept 21 pg/mL (19.9-100)
== END 2024-06-28 16:44 | disposition home or self-care (01) ==
PROVIDERS: Emergency Provider Physician Assistant
DX: O26.892 Other specified pregnancy related conditions, second trimester (principal); R00.2 Palpitations; Z87.891 Personal history of nicotine dependence; R94.31 Abnormal electrocardiogram [ECG] [EKG]; Z3A.23 23 weeks gestation of pregnancy
CPT/HCPCS: 36415; 80053; 83880; 84484; 85025; 93005; 99284

== ENCOUNTER 2024-08-28 12:53 | Outpatient (RCR) | payer OTHER, MEDICAID, SELFPAY ==
[2024-08-28 13:38] VITALS: BMI 52.5
--- NOTE | 2024-08-28 14:03 | PCDIET ---
Consult completed. Thank you for this referral!
== END 2024-11-18 12:20 | disposition home or self-care (01) ==
LOC: ANHDMC 12:53
PROVIDERS: PCP Nurse Practitioner Family; Visit Provider Obstetrics & Gynecology
DX: O24.410 Gestational diabetes mellitus in pregnancy, diet controlled (principal); Z71.3 Dietary counseling and surveillance
CPT/HCPCS: 97802

== ENCOUNTER 2024-10-14 14:31 | Observation (INO) | payer OTHER, MEDICAID, SELFPAY ==
--- OUTSIDE RECORDS SUMMARY | 2024-10-14 15:42 | XMS_ITS | Clinical Summary ---
Author Organization [facility] Address [address] [place] [address] Phone Care Team Providers Care Communications Project Manager Name Role Phone Karol Holder MD Unavailable Maxim Ding MD Primary Care Provider Allergies Active Allergy Reactions Criticality Noted Date Comments Morphine Rash 11/09/2015 Penicillins Shortness of Breath 11/09/2015 Medications ursodiol (ACTIGALL) 300 MG Capsule Take 300 mg by mouth 2 times daily. 06/14/2024 Active levothyroxine (SYNTHROID) 100 MCG Tablet Take 1 Tablet by mouth daily. 90 Tablet 1 06/26/2024 Active Immunizations Immunization Administration Dates Next Due [id number] fernando MCV4, Unspecif ied Formulation 10/03/2016,10/27/2009 DTAP [...] Height 152.4 cm (5') 03/08/2024 2:12 AM COORDINATOR OF HEALTH SERVICES Body Mass Index 51.91 03/08/2024 2:12 AM COORDINATOR OF HEALTH SERVICES Plan of Treatment Health Maintenance Due Date Last Done Comments Pap Smear 09/17/2019 SARS-COV-2 Immunization ( season) 2023 Influenza Immunization (#1) 2024 07/11/2013 Hepatitis C Virus (HCV) Screening [...] age to complete this topic Insurance [place]ICAID [place] [facility] [place]ID [place] Care Teams Communications Project Manager Relationship Specialty Start Date End Date Maxim Ding MD [address] [place] [address] PCP - General Internal Medicine 11/03/22 Karol Holder MD #[address] [phone] Consulting Physician Endocrinology 08/03/21
--- NOTE | 2024-11-10 16:33 | PM.OBTRLD ---
OB - Triage/Final Diagnosis Visit Information Comments/Additional reasons for admission: I have assessed the risk for this patient, Mercy Avina, and determined that she would benefit from observation care. Final Diagnosis (1) Pelvic pressure in : Code(s): O26.899 - Other specified related conditions, unspecified trimester; R10.2 - Pelvic and perineal pain Status: Acute
== END 2024-10-14 16:04 | disposition home or self-care (01) ==
PROVIDERS: Admitting Provider Obstetrics & Gynecology; Visit Provider Obstetrics & Gynecology
DX: O26.899 Other specified pregnancy related conditions, unspecified trimester (principal); R10.2 Pelvic and perineal pain
CPT/HCPCS: G0378; G0379

== ENCOUNTER 2024-10-19 11:31 | Outpatient (RCR) | payer OTHER, MEDICAID, SELFPAY ==
--- NOTE | ~2024-10-19 | US_ITS ---
EXAMINATION: US OB BPP wo non-stress DATE: 10/19/2024 14:34 INDICATION: Gestational Diabetes . TECHNIQUE: Real-time ultrasound of the pelvis was performed. COMPARISON: None. FINDINGS: There is a single living fetus in vertex presentation, longitudinal lie. The placenta is fundal/ante rior, well distant from the cervix. heart rate is 140 bpm. The amniotic fluid index is 9.7 cm, which is normal (5th to 95th percentile is 7.2 to 23 cm). BRYAN appears subjectively low in the static and cine images. Biophysical profile performed by the technologist: breathing (30 sec sustained breathing in 30 minutes): 2 out of 2. movement (3 gross body movements in 30 minutes: 2 out of 2. tone (one episode of mblznod-uavdnwwld-apjlfxa limb movement): 2 out of 2. Amniotic fluid pocket (2 cm): 2 out of 2. Total score: 8 out of 8. IMPRESSION: Single living fetus in vertex presentation. Biophysical profile 8 out of 8. Numerically normal BRYAN that appears subjectively low. Reviewed, dictated and finalized at location K.
[2024-10-19 12:17] VITALS: PULSE 74
--- NOTE | 2024-10-19 13:08 | PC.NURSE ---
[address] Sauer to report reactive NST results and BPP results 10/18. Orders received to discharge pt. home.
== END 2024-11-07 13:40 | disposition other institution (70) ==
LOC: ANHOBOP 11:31
PROVIDERS: Visit Provider Obstetrics & Gynecology
DX: O24.419 Gestational diabetes mellitus in pregnancy, unspecified control (principal); Z3A.38 38 weeks gestation of pregnancy
CPT/HCPCS: 59025; 76819

== ENCOUNTER 2024-10-21 05:27 | Inpatient (IN) | payer OTHER, MEDICAID, SELFPAY ==
[2024-10-21] VITALS (199 sets, daily range): BP systolic 65–148; BP diastolic 39–108; PULSE 76–154; RESP 18; TEMP 36.3–37.3; O2SAT 93–100; BMI 53.8
--- OUTSIDE RECORDS SUMMARY | 2024-10-21 05:37 | XMS_ITS | Clinical Summary ---
Author Organization [facility] Address [address] [place] [address] Phone Care Team Providers Care Manager Of Procurement Name Role Phone Karol Holder MD Unavailable [...] Active Immunizations Immunization Administration Dates Next Due [id number] fernando MCV4, Unspecif ied Formulation 10/03/2016,10/27/2009 DTAP [...] Height 152.4 cm (5') 03/08/2024 2:12 AM SERVICE DESK DIRECTOR Body Mass Index 51.91 03/08/2024 2:12 AM SERVICE DESK DIRECTOR Plan of Treatment Health Maintenance Due Date [...] to complete this topic Insurance [place]ID [place] [facility] [place]ID [place] Care Teams Manager Of Procurement Relationship Specialty Start Date End Date Maxim Ding MD [address] [place] [address] PCP - General Internal Medicine 11/03/22 Karol Holder MD #[address] [phone] Consulting Physician Endocrinology 08/03/21
[2024-10-21 06:19] LABS: Hematocrit 39.7 % (37.0-47.0); Hemoglobin 13.0 g/dL (12.0-15.0); Immature Granulocyte Percent A 0.6 % (0-0.5); Lymphocytes Absolute Auto 1.66 K/mm3 (0.9-3.2); Mean Corpuscular HGB Conc 32.7 g/dl (32-36); Mean Corpuscular Hemoglobin 31.3 pg (26-34); Mean Corpuscular Volume 95.4 fl (80-100); Nucleated Red Blood Cells Absolute Auto 0.000 K/mm3 (0.0-0.012); Nucleated Red Blood Cells Perc 0.0 % (0.0-0.2); Platelet Count Result 200 k/mm3 (150-375); Red Blood Count 4.16 M/mm3 (4.2-5.4); White Blood Count 10.4 K/mm3 (4.5-10.0)
[2024-10-21] MEDS: LACTATED RINGERS 1,000 ML 125 ML IV CONT ×3 (06:46→16:09)
[2024-10-21] MEDS: OXYTOCIN 30 UNITS/NS 500 ML 30 UNITS/500 ML BAG IV CONT (06:48)
--- NOTE | 2024-10-21 06:53 | LDADM ---
This patient, Mercy Avina, was admitted to Labor/Delivery/Recovery 105 on 10/21/24 at 05:27. Plans for labor, pain management and were discussed with patient. Patient/family oriented to hospital policies and general routines including ID bracelet, bed and alarms, visiting hours, pain management, procedures, bathroom and other care routines, personal items, smoking policy, room service/diet and guest tray routines, infant security routines, and visiting hours. Patient/Family are encouraged to report perceived risks to care and to ask questions if they do not understand what they are told or what they should do. See OBIX for further documentation.
[2024-10-21 06:58] LABS: Syphilis IgG/IgM Antibody Non-Reactive (Nonreactive)
--- NOTE | 2024-10-21 07:41 | WPDHPUPDATE1 ---
History and Physical Update Update Date/Time: 10/21/24 07:41 24-year-old primiparous female at term who presents for elective induction of labor. complicated by gestational diabetes. Artificial rupture membranes was performed. Clear fluid. 4 cm, 80% -1. Active management of labor. History and Physical has been reviewed, including an updated exam of the patient. There are NO changes in the patient's condition. Risks, benefits, and alternatives have been discussed and questions answered. Patient agrees to proceed with procedure.
[2024-10-21 07:56] LABS: Glucose 99 mg/dL (65-110)
[2024-10-21] MEDS: LEVOTHYROXINE SODIUM 112 MCG TABLET PO (09:52)
--- NOTE | 2024-10-21 14:02 | WPDANESEPPF ---
Anes - Initial Pre Proc Eval Procedure: labor epidural Date/Time: 10/21/24 14:02 Surgeon: Chano Sauer MD Pre Op Diagnosis: labor pain Pre Op Diagnosis: IOL Patient Data Age: 24 Gender: F Height: 1.52 m Weight: 125 kg Last Vital Signs Temp 36.5 C 10/21/24 12:00 Pulse 88 10/21/24 14:00 BP 120/70 10/21/24 14:00 Pulse Ox 100 10/21/24 13:59 O2 Del Method Room Air 10/21/24 06:53 Allergies Allergy/AdvReac Type Severity Reaction Status Date / Time morphine Allergy Severe Difficulty Verified 10/21/24 06:28 Breathing Penicillins Allergy Intermediate Hives Verified 10/21/24 06:28 Home Medications ?Medication ?Instructions ?Recorded ?Confirmed ?Type levothyroxine 112 mcg tablet 112 mcg PO DAILY 09/25/24 10/21/24 History insulin glargine 100 unit/mL 15 unit subcut QPM 10/21/24 10/21/24 History subcutaneous solution (Lantus U-100 Insulin) Laboratory Tests 10/21/24 10/21/24 10/21/24 06:06 07:37 10:29 WBC 10.4 H K/mm3 (4.5-10.0) RBC 4.16 L M/mm3 (4.2-5.4) Hgb 13.0 g/dL (12.0-15.0) Hct 39.7 % (37.0-47.0) MCV 95.4 fl (80-100) MCH 31.3 pg (26-34) MCHC 32.7 g/dl (32-36) RDW 13.5 % (11.5-14.5) Plt Count 200 k/mm3 (150-375) MPV 12.2 H fl (7.4-10.4) Immature Gran % (Auto) 0.6 H % (0-0.5) Neut % (Auto) 72.6 % (45.5-73.1) Lymph % (Auto) 15.9 L % (18.3-44.2) [place] % (Auto) 8.8 H % (2.6-8.5) Eos % (Auto) 1.7 % (0-4.4) Baso % (Auto) 0.4 % (0.2-1.2) Lymph # (Auto) 1.66 K/mm3 (0.9-3.2) [place] # (Auto) 0.9 H K/mm3 (0.1-0.6) Eos # (Auto) 0.2 K/mm3 (0-0.3) Baso # (Auto) 0.0 K/mm3 (0.0-0.1) Abs Immat Gran (auto) 0.06 H K/mm3 (0.00-0.031) Absolute Neuts (auto) 7.6 H K/mm3 (1.3-6.7) Absolute Nucleated RBC 0.000 K/mm3 (0.0-0.012) Nucleated RBC % 0.0 % (0.0-0.2) Glucose 99 mg/dL (65-110) POC Capillary Glucose 85 mg/dl (65-105) Syphilis IgG/IgM Ab Non-reactive (Nonreactive) Blood Type A Positive Antibody Screen Negative 10/21/24 11:50 WBC RBC Hgb Hct MCV MCH MCHC RDW Plt Count MPV Immature Gran % (Auto) Neut % (Auto) Lymph % (Auto) [place] % (Auto) Eos % (Auto) Baso % (Auto) Lymph # (Auto) [place] # (Auto) Eos # (Auto) Baso # (Auto) Abs Immat Gran (auto) Absolute Neuts (auto) Absolute Nucleated RBC Nucleated RBC % Glucose POC Capillary Glucose 82 mg/dl (65-105) Syphilis IgG/IgM Ab Blood Type Antibody Screen Patient hx anesthesia problems: none Family hx anesthesia problems: none Results Review: All pre-operative results and documents have been reviewed as part of the pre-operative evaluation. [facility] Past Medical History Medical History (Updated 10/21/24 @ 14:02 by Douglas Rothman DO) GDM (gestational diabetes mellitus) Anxiety Surgical History Surgical History (Updated 02/24/24 @ 13:05 by Spring Clarke NP) History of facial surgery skull and facial reconstruction fro fracture nose and orbit and skull Family History Family History Other Diabetes mellitus Hypertension Social History Social History (Updated 02/24/24 @ 13:07 by Spring Clarke NP) Smoking packs per day: 0.4 Smoking cigarettes per day: 8.0 Smoking status: Former smoker Tobacco type: cigarettes and e-cigarettes/vaping Smoking end date: 12/12/23 Additional smoking assessment comments: nicotine free from vape 2 months reported 02/22/2024 Alcohol intake: current Lack of Transportation: No Lack of Food: Never True Current Housing: I Have Housing Concerned About Future Housing: No Difficulty Paying Gas/Electric Bills: No Difficulty Paying for Meds: No Currently Unemployed: YES Education: High School Diploma/GED Difficulty w/ Childcare or Family Care: No Gender identity (if verbalized by the patient): Female Spiritual care concerns: No Anes - Eval Final PreProcedure Day of Procedure 10/21/24 14:02 Patient weight: super morbidly obese ASA classification: III Anesthetic plan: proceed Anesthesia type and monitoring: regional epidural and standard monitoring Results Review: All pre-operative results and documents have been reviewed as part of the pre-operative evaluation. Informed Consent: The patient's anesthetic plan and its attendant risks and benefits were discussed with the patient/family/POA. Questions were solicited and answers provided to the satisfaction of the patient/family/POA.
[2024-10-21] MEDS: ONDANSETRON INJ 4 MG/2 ML VIAL IV PUSH (16:02)
[2024-10-21] MEDS: ACETAMINOPHEN 500 MG TABLET 1000 MG PO (19:54)
--- NOTE | 2024-10-21 21:10 | PM.OBPRVD ---
OB - Vaginal Delivery Note Procedure Delivery date: 10/21/24 Events: Gestational Diabetes Induction method: AROM and Per Pitocin Protocol Delivery monitor: Internal FHT and Internal Uterine Route of delivery: Episiotomy description: None Laceration Description: Vaginal Delivery repair: vicryl Specimen: No Quantitative Blood Loss (ml): 75 Anesthesia type: Epidural Disposition: Floor Complications: No immediate complications
[2024-10-21] MEDS: OXYTOCIN 30 UNITS/NS 500 ML 30 UNITS/500 ML BAG 125 UNITS IV CONT (21:25)
[2024-10-21] MEDS: IBUPROFEN 600 MG TABLET PO (22:51)
[2024-10-21] MEDS: WITCH HAZEL 40 PADS 1 PAD TOPICAL (22:52)
[2024-10-21] MEDS: BENZOCAINE 20% AER SPR (*SP) 56 GM CAN 1 SPRAY TOPICAL (22:52)
[2024-10-22 04:00] VITALS: BP 109/51; PULSE 67; RESP 16; TEMP 36.6; O2SAT 97
[2024-10-22 04:14] LABS: Hematocrit 33.7 % (37.0-47.0); Hemoglobin 11.3 g/dL (12.0-15.0)
[2024-10-22 07:10] VITALS: BP 99/55; PULSE 77; RESP 18; TEMP 36.6; O2SAT 98
[2024-10-22] MEDS: DOCUSATE SODIUM 100 MG CAPSULE PO (08:07)
[2024-10-22] MEDS: IBUPROFEN 600 MG TABLET PO ×3 (08:07→22:24)
[2024-10-22] MEDS: MULTIVIT/MIN/PREN/FOL AC/IRON TABLET 1 TAB PO (08:07)
[2024-10-22] MEDS: ACETAMINOPHEN 325 MG TABLET 650 MG PO ×3 (08:08→22:23)
[2024-10-22 12:30] VITALS: BP 119/69; PULSE 84; RESP 16; TEMP 36.3; O2SAT 96
--- NOTE | 2024-10-22 12:42 | P.PNOB_ITS ---
OB - PN: Subj Subjective Date/time seen: 10/22/24 12:42 Interval history: PPD#1 s/p Doing well, pain controlled Voiding without issue Tolerating general diet OB - PN: Obj Data Labs 10/22/24 03:48 10/21/24 07:37 Labs: Laboratory Results - last 24 hr 10/21/24 10/21/24 10/21/24 14:05 16:05 18:10 Hgb Hct POC Capillary Glucose 74 68 71 10/21/24 10/22/24 19:53 03:48 Hgb 11.3 L Hct 33.7 L POC Capillary Glucose 71 OB - PN A/P Assessment and Plan (1) (spontaneous vaginal delivery): Code(s): O80 - Encounter for full-term uncomplicated delivery Status: Acute Plan day: 1 Plan: routine care Time Spent With Patient Time: Total time spent is greater than 50% in coordination of care (as documented) at patient's floor/unit and/or counseling patient: Review of Systems 2 Review of Systems: All systems reviewed & are unremarkable except as noted in HPI and below Exam 2 Const: General: comfortable and no acute distress O rientation/consciousness: patient oriented x3 Resp: Effort & Inspection: normal respiratory effort
--- NOTE | 2024-10-22 14:36 | WPDANLDPN2 ---
Anes-Prog Note L&D Date/Time: 10/22/24 14:36 Comfortable throughout: labor and delivery Neuraxial method: epidural Epidural/Spinal procedure site: clean & non-tender Neuro status: Neuro function grossly intact. Cardiovascular status: normal Respiratory status: normal Airway patency: baseline Mental status: baseline Vital Signs: Last Vital Signs Temp 36.3 C L 10/22/24 12:30 Pulse 84 10/22/24 12:30 Resp 16 10/22/24 12:30 BP 119/69 10/22/24 12:30 Pulse Ox 96 10/22/24 12:30 O2 Del Method Room Air 10/21/24 06:53 Pain score (VAS): 0 I/O: Intake & Output 10/21/24 10/22/24 10/22/24 23:59 07:59 15:59 Intake Total 1000 1 Output Total 75 Balance 925 1 Patient feedback: Patient satisfied with anesthetic care.
[2024-10-22 15:04] VITALS: BP 122/72; PULSE 84; RESP 18; TEMP 36.2; O2SAT 100
--- NOTE | 2024-10-22 17:54 | PC.NURSE ---
1700. Introductions were made, then consulted with patient to assess needs related to . Discussed with mother her plans to feed her and the experience so far. Encouraged mother to express any questions or concerns she has regarding feedings. Mom states she has not wanted to put baby to the breast today bc her recovery has been difficult, and she states she has a lot of pain in her back. Offered to get mom pumping but she states she would like to wait until tomorrow morning to pump. Education was given to mom and dad on the process and the importance of early stimulation to optimize milk supply. Mom was encouraged that the choice was hers alone to make and to not feel pressured from the medical staff how to feed her baby, she was encouraged to feel confident in whatever choice for feeding she chooses. Encouraged mom to call for questions regarding feeding or if she needs anything. Advised her to call out for a latch check or if she needs assistance waking or positioning baby. Reviewed the blue feeding worksheet for required output and feeding at least 8-12 times every 24 hours. Resources provided for inpatient and outpatient services with the feeding sheet, mom/baby guide, and name/number written on the communication board. Mother voiced understanding of information and will call if there is a request for assistance. Reported to the Primary RN?
[2024-10-22 20:04] VITALS: BP 116/49; PULSE 74; RESP 16; TEMP 36.3; O2SAT 98
[2024-10-23 00:40] VITALS: BP 102/51; PULSE 72; RESP 18; O2SAT 98
[2024-10-23] MEDS: DOCUSATE SODIUM 100 MG CAPSULE PO (04:25)
[2024-10-23] MEDS: IBUPROFEN 600 MG TABLET PO ×2 (04:25→11:30)
[2024-10-23] MEDS: ACETAMINOPHEN 325 MG TABLET 650 MG PO ×2 (04:25→11:30)
[2024-10-23] MEDS: LEVOTHYROXINE SODIUM 112 MCG TABLET PO (07:30)
--- NOTE | 2024-10-23 07:39 | P.PNOB_ITS ---
OB - PN: Subj Subjective Date/time seen: 10/23/24 07:39 Interval history: PPD#2 s/p Doing well, pain controlled Voiding without issue Tolerating general diet OB - PN: Obj Data Labs 10/22/24 03:48 10/21/24 07:37 OB - PN A/P Plan day: 2 Plan: routine care and discharge home Time Spent With Patient Time: Total time spent is greater than 50% in coordination of care (as documented) at patient's floor/unit and/or counseling patient: Review of Systems 2 Review of Systems: All systems reviewed & are unremarkable except as noted in HPI and below Exam 2 Const: General: cooperative, healthy appearing and comfortable Resp: Effort & Inspection: normal respiratory effort Cardio: Rate: regular rate
[2024-10-23 07:45] VITALS: BP 116/70; PULSE 68; RESP 18; TEMP 37.1; O2SAT 97
--- NOTE | 2024-10-23 08:30 | PC.NURSE ---
Met with patient regarding services. She has bottle fed baby so far and did express some interest in pumping. Today she states that she is planning on going home and does not need any assistance with or pumping. Primary RN aware.
--- NOTE | 2024-10-29 07:33 | PM.OBDSVD ---
DS: Admitting Diagnosis Discharge Date 10/23/24 Admitting Diagnosis IOL DS: Discharge Diagnosis Discharge Diagnosis (1) (spontaneous vaginal delivery): Code(s): O80 - Encounter for full-term uncomplicated delivery Status: Acute OB - DS: Summary OB Procedures : None OB Procedures Intrapartum: Spontaneous Vag Delivery OB Procedures: : None Peripartum Data Laceration Description: Vaginal Episiotomy description: None Time Spent with Patient Time attestation: Total time spent providing and/or coordinating discharge services: Discharge Plan Discharge Attending physician on discharge: Chano Sauer Consulting providers: Kenya López; Kassie Gannon Stephen J. Discharging Clinician: Leesa Hurtado Patient Disposition: Home Activity: pelvic rest Diet: regular Discharge Instructions: Education: Mom and Baby Guide Given to: Mother Follow-Up: Call your delivering provider's office for an appointment to be seen in: 4 Weeks Mom and baby [facility] for the follow-up appointment. Appointment Date/Time: October 24, 2024 at 10:00 am What to expect at your follow-up visit: Blood Pressure Check Physical Assessment Call [phone] if you are unable to keep your appointment time. BREAST CARE: * Wear a snug supportive bra. * For engorgement discomfort: Breast Feeding: * Apply warm moist washcloths * Express milk as needed to relieve engorgement * Wear loose clothing Bottle Feeding: * May apply ice packs * For sore nipples: * Identify correct latch-on * Apply warm moist washcloths before and after nursing * Air dry nipples after nursing * May apply Lansinoh cream to nipples EPISIOTOMY/PERINEAL CARE: * Until bleeding stops, use your femi bottle after urinating * Change your pad frequently throughout the day * You may take sitz baths several times a day (fill your bathtub with warm water and soak for 20 minutes.) Do NOT bathe in the water * No tub baths until seen by your physician - You may shower ACTIVITY: * Rest as much as possible. * Do not exercise or lift anything heavier than your baby (such as laundry or other children.) * Avoid stairs or driving as much as possible. * Do not put anything into the vagina. No douching, tampons, or sexual activity until seen by physician. NOTIFY PHYSICIAN IF YOU HAVE ANY QUESTIONS OR IF ANY OF THE FOLLOWING SYMPTOMS OCCUR: * If your episiotomy or incision becomes red, swollen, or more painful than what you have experienced in the hospital. * If your vaginal bleeding becomes foul smelling. * If your vaginal bleeding becomes more heavy than a period or if your bleeding changes from pink to bright red. However, you may pass an occasional walnut-sized clot once or twice for the first week . * If you experience a sharp, shooting pain in you calves. * If you discover a hard, reddened area on your breast or if you experience flu-like symptoms. DIET: * Eat regular, well-balanced meals. * Drink plenty of fluids daily. If , drink to thirst. Patient Instructions: Antibiotic Form Patient Language: Amharic Stand Alone Forms: General Discharge Information Follow-up/Referrals: Chano Sauer MD [Physician, [employer] [employer] [facility]] - 4 Weeks Discharge Medications: Continued levothyroxine 112 mcg tablet 112 mcg PO DAILY Discontinued insulin glargine [Lantus U-100 Insulin] 100 unit/mL solution 15 unit subcut QPM No Action nitrofurantoin monohyd/m-cryst [Macrobid] 100 mg capsule 100 mg PO Q12H 7 Days Qty: 14 0RF Rx Instructions: must administer with a meal/food Date of admission: 10/21/24 05:27 Primary Care Provider: Vicky Spears Admitting Provider: Chano Sauer Attending physician on admission: Leesa Hurtado Condition: Stable
== END 2024-10-23 12:00 | disposition home or self-care (01) | DRG 806 ==
LOC: ANHLDR 05:35 → ANHOB2 23:45
PROVIDERS: Admitting Provider Obstetrics & Gynecology; PCP Nurse Practitioner Family; Visit Provider Advanced Practice Midwife
DX: O24.429 Gestational diabetes mellitus in childbirth, unspecified control (principal); O71.4 Obstetric high vaginal laceration alone; Z37.0 Single live birth; Z3A.39 39 weeks gestation of pregnancy; O69.81X0 Labor and delivery complicated by cord around neck, without compression, not applicable or unspecified
CPT/HCPCS: 36415; 82947; 82948; 85014; 85018; 85025; 86593; 86850; 86900; 86901; A9270; J2405; J2590; J2795; J7120

== ENCOUNTER 2024-10-24 09:29 | Outpatient (CLI) | payer OTHER, MEDICAID, SELFPAY ==
--- NOTE | ~2024-10-24 | CT_ITS ---
EXAMINATION: CT abdomen pelvis w con DATE: 10/24/2024 12:16 INDICATION: Left leg pain. Bilateral kidneys, ureter TECHNIQUE: Computed tomography (CT) of the abdomen and pelvis was performed with intravenous contrast . The dose-length product was 1522.61 mGy-cm. COMPARISON: None. FINDINGS: The liver, spleen, adrenal glands, kidneys, pancreas and gallbladder are unremarkable. No enlarged ly mph nodes in the abdomen or pelvis. Bladder is unremarkable. Uterus is enlarged and heterogeneous. Moderate amount of stool. No colitis. Appendix is not visualize d. 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 No anterolisthesis of L5 on S1. Small amount of fat strandin g and fluid about the uterus. IMPRESSION: 1. Uterus is enlarged and heterogeneous. Small amount of nonspecific fat stranding and fluid about th e uterus. The findings are nonspecific. A pelvic ultrasound is recommended. Reviewed, dictated and finalized at location A. IMPRESSION: 1. Uterus is enlarged and heterogeneous. Small amount of nonspecific fat strand ing and fluid about the uterus. The findings are nonspecific. A pelvic ultrasou nd is recommended.
[2024-10-24 09:44] VITALS: BP 124/68; PULSE 72
--- OUTSIDE RECORDS SUMMARY | 2024-10-24 09:45 | XMS_ITS | Clinical Summary ---
Author Organization [facility] Address [address] [place] [address] Phone Care Team Providers Care Nursing Techn Name Role Phone Karol Holder MD Unavailable [...] Active Immunizations Immunization Administration Dates Next Due [id number] fernando MCV4, Unspecif ied Formulation 10/03/2016,10/27/2009 DTAP [...] Height 152.4 cm (5') 03/08/2024 2:12 AM [facility] Body Mass Index 51.91 03/08/2024 2:12 AM HAND [facility] Plan of Treatment Health Maintenance Due Date [...] to complete this topic Insurance [place] [facility] [place] Care Teams Nursing Techn Relationship Specialty Start Date End Date Maxim Ding MD [address] [place] [address] PCP - General Internal Medicine 11/03/22 Karol Holder MD [address] [phone] Consulting Physician Endocrinology 08/03/21
[2024-10-24 09:46] VITALS: BP 121/71; PULSE 71
[2024-10-24 09:57] VITALS: BP 124/68; PULSE 71
[2024-10-24 10:00] VITALS: BP 136/89; PULSE 84
[2024-10-24 10:12] LABS: Hematocrit 36.1 % (37.0-47.0); Hemoglobin 11.9 g/dL (12.0-15.0); Immature Granulocyte Percent A 0.4 % (0-0.5); Lymphocytes Absolute Auto 1.45 K/mm3 (0.9-3.2); Mean Corpuscular HGB Conc 33.0 g/dl (32-36); Mean Corpuscular Hemoglobin 31.8 pg (26-34); Mean Corpuscular Volume 96.5 fl (80-100); Nucleated Red Blood Cells Absolute Auto 0.000 K/mm3 (0.0-0.012); Nucleated Red Blood Cells Perc 0.0 % (0.0-0.2); Platelet Count Result 212 k/mm3 (150-375); Red Blood Count 3.74 M/mm3 (4.2-5.4); White Blood Count 10.3 K/mm3 (4.5-10.0)
[2024-10-24 10:16] VITALS: BP 129/85; PULSE 79
[2024-10-24 10:46] VITALS: BP 144/85; PULSE 69
[2024-10-24 11:18] LABS: Alanine Aminotransferase 43 U/L (6-35); Albumin Level 3.4 g/dL (3.5-5.1); Alkaline Phosphatase 84 U/L (38-126); Anion Gap 8 mmol/L (4-12); Aspartate Amino Transferase 40 U/L (14-36); Bilirubin,Total 0.5 mg/dL (0.2-1.3); Blood Urea Nitrogen 10 mg/dL (7-17); Calcium 9.1 mg/dL (8.4-10.2); Carbon Dioxide 20 mmol/L (22-30); Chloride 108 mmol/L (98-107); Estimated Glomerular Filt Rate > 60; Glucose 79 mg/dL (65-110); Potassium 4.1 mmol/L (3.4-5.0); Sodium 136 mmol/L (137-145); Total Protein 6.6 g/dL (6.3-8.2); Uric Acid 5.3 mg/dL (2.5-7.5)
[2024-10-24 12:41] LABS: Add Urine Microscopic? YES; Appearance Urine Clear (Clear); Glucose Urine UA Negative (Negative); Leukocyte Esterase Ur 3+ LEU/UL (Negative); Need Manual Microscopic Reviewed; Nitrate Urine Negative (Negative); Non Pathogenic Casts 0-2; Specific Grav Ur 1.012 (1.001-1.035)
[2024-10-24 13:11] LABS: Total Protein Urine Random 15 mg/dL
[2024-10-24] MEDS: cefTRIAXone 1 GM in SODIUM CHLORIDE 0.9% IV 50 ML 100 ML IVPB (13:13)
[2024-10-24 13:56] LABS: Ur Ttl Prot Creatinine Ratio 0.21 mg/mg (0-0.20)
== END 2024-10-24 14:06 | disposition home or self-care (01) ==
LOC: ANHOBOP 09:33 → ANHOBPP 09:34
PROVIDERS: Visit Provider Obstetrics & Gynecology
DX: M79.662 Pain in left lower leg (principal); O13.9 Gestational [pregnancy-induced] hypertension without significant proteinuria, unspecified trimester; Z3A.00 Weeks of gestation of pregnancy not specified
CPT/HCPCS: 36415; 74177; 80053; 81001; 82570; 84156; 84550; 85025; 99199; J0696; Q9967